=== PATIENT | male | born 1935 | race Caucasian/White ===

== ENCOUNTER 2019-06-06 23:46 | Emergency (ER) | payer MEDICARE ==
[~2019-06-06] VITALS: Ht 175.3 cm; Wt 78.9 kg
--- OUTSIDE RECORDS SUMMARY | 2019-06-06 23:49 | XMS REPORT | Summary of Care ---
Author Author PARESH ANTUNEZ, [facility] Organization Unknown Address Unknown Phone Unavailable Care Team Providers Care Boiler Repairman Name Role Phone NEENA Ricci, HELIO Unavailable Unavailable [facility] ANT[facility], [facility] Unavailable Unavailable JENNIFER D.O., JUJU Unavailable Unavailable YEJohan DO [facility] [place] Unavailable Unavailable YAMEL Ricci, MARRY Unavailable Unavailable Unavailable Unavailable Functional Status Name Dates Details Functional status health issues are not documented Status: Name Dates Details Cognitive status health issues are not documented Status: Problems Name Dates Details Obstructive sleep apnea (327.23, G47.33) Status: Active Exanthem (782.1, R21) Status: Active Need for influenza vaccination (V04.81, Z23) Status: Active 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, N40.1) Status: Active Restless leg syndrome (333.94, G25.81) Status: Active Neuropathy (355.9, G62.9) Status: Active Reactive airway disease (493.90, J45.909) Status: Active Need for vaccination with 13-polyvalent pneumococcal conjugate vaccine (V03.82, Z23) Status: Active Idiopathic peripheral neuropathy (356.9, G60.9) Status: Active Encounter for long-term current use of medication (V58.69, Z79.899) Status: Active Intractable hiccups (786.8, R06.6) Status: Active Peripheral neuropathy (356.9, G62.9) Status: Active 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.2, 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) Status: Active Chronic kidney disease, stage III (moderate) (585.3, N18.3) Status: Active Arteriosclerosis of coronary artery (414.00, I25.10) Status: Active L4-L5 disc bulge (722.10, M51.26) Status: Active Seasonal allergic rhinitis, unspecified chronicity, unspecified trigger Status: Active Patient cannot afford medications (V60.2, Z59.6) Status: Active Thyroid cyst (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 * Start : 24-Sep-2012 Active Glimepiride 1 MG Oral Tablet TAKE 1 TABLET IN THE MORNING, 1 TABLET AT NOON AND TAKE 2 TABLETS WITH SUPPER (T AMELIA WITH FOOD) HOLD STARTING 01-21-18 * Quantity: 360 Refills: 0 HELIO CHAUDHARY M.D. * Start : 24-Sep-2012 Active AmLODIPine Besylate 10 MG Oral Tablet 1 a day * Refills: 0 HELIO CHAUDHARY M.D. * Start : 24-Sep-2012 Active Digoxin 125 MCG Oral Tablet TAKE 1 TABLET DAILY. * Refills: 0 * Start : 24-Sep-2012 Active Amiodarone HCl - 100 MG Oral Tablet TAKE 1 TABLET DAILY DIRECTED. * Refills: 0 * Start : 24-Sep-2012 Active Micro-K 8 MEQ Oral Capsule Extended Release * Refills: 0 HELIO CHAUDHARY M.D. * Start : 24-Sep-2012 Active Atorvastatin Calcium 20 MG Oral Tablet TAKE 1 TABLET DAILY AT BEDTIME. * Refills: 0 HELIO CHAUDHARY M.D. * Start : 24-Sep-2012 Active Vitamin D3 5000 UNIT Oral Capsule 1 a day since * Refills: 0 HELIO CHAUDHARY M.D. * Start : 24-Sep-2012 Active ROPINIRole HCl - 5 MG Oral Tablet TAKE 1 TABLET AT BEDTIME * Quantity: 90 Refills: 1 YEH D.O.JUJU * Start : 23-Aug-2017 Active Furosemide 40 MG Oral Tablet 1.5 TABLET TWICE DAILY ORAL TABLET: Per corporate buyer * Refills: 0 * Start : 14-May-2013 Active Levothyroxine Sodium 88 MCG Oral Tablet TAKE 1 TABLET EVERY DAY * Quantity: 90 Refills: 0 NEENA M.D., HELIO * Start : 21-Jun-2017 Active Accu-Chek Joelle Plus In Vitro Strip Check three to four times daily * Quantity: 4 Refills: 0 HELIO CHAUHDARY M.D. * Start : 11-Feb-2018 Active 100 Strip Box Accu-Chek Softclix Lancets USE TO CHECK BLOOD GLUCOSE TWICE DAILY * Quantity: 2 Refills: 3 HELIO CHAUDHARY M.D. * Start : 13-Feb-2014 Active 100 Miscellaneous Box Losartan Potassium 100 MG Oral Tablet Per corporate buyer * Refills: 0 HELIO CHAUDHARY M.D. * Start : 20-Aug-2014 Active NovoLOG FlexPen 100 UNIT/ML Subcutaneous Solution Pen-injector 2 unit before the two main meals of the day; CF 40 * Refills: 0 HELIO CHAUDHARY M.D. * Start : 29-Mar-2015 Active 5 x 3 ML Pen BD Pen Needle Maria Guadalupe U/F 32G X 4 MM 3 a day as needed for insulin injections * Quantity: 1 Refills: 3 HELIO CHAUDHARY M.D. * Start : 29-Mar-2015 Active 100 Unit Box Januvia 100 MG Oral Tablet TAKE 1 TABLET BY MOUTH EVERY DAY ,MAY DECREASE TO 1/2 TABLET IF NECESSARY * Quantity: 30 Refills: 2 HELIO CHAUDHARY M.D. * Start : 06-Jul-2017 Active Lycopene 10 MG Oral Capsule TAKE 1 CAPSULE TWICE DAILY * Refills: 0 Active Melatonin 10 MG Oral Tablet take 5-10mg qd * Refills: 0 Active Fenofibrate 48 MG Oral Tablet TAKE 1 TABLET BY MOUTH DAILY WITH FOOD REPLACING LOVAZA * Quantity: 90 Refills: 0 HELIO CHAUDHARY M.D. * Start : 24-Dec-2017 Active Fluticasone Propionate 50 MCG/ACT Nasal Suspension USE 2 SPRAYS IN EACH NOSTRIL ONCE DAILY * Quantity: 1 Refills: 1 YEH D.O.JUJU * Start : 30-Jul-2017 Active 16 GM Bottle Promethazine VC Plain 6.25-5 MG/5ML SYRP TAKE 5 ML EVERY 4 TO 6 HOURS NEEDED. * Quantity: 118 Refills: 1 YEH D.O.JUJU * Start : 30-Jul-2017 Active Hydrocodone-Acetaminophen 5-325 MG Oral Tablet * Refills: 0 HELIO CHAUDHARY M.D. * Start : 30-Nov-2017 Active TiZANidine HCl - 2 MG Oral Tablet * Refills: 0 HELIO CHAUDHARY M.D. * Start : 30-Nov-2017 Active Tamsulosin HCl - 0.4 MG Oral Capsule * Refills: 0 HELIO CHAUDHARY M.D. * Start : 30-Nov-2017 Active Zantac 150 Maximum Strength 150 MG Oral Tablet * Refills: 0 HELIO CHAUDHARY M.D. * Start : 30-Nov-2017 Active Diclofenac Sodium 1 % Transdermal Gel APPLY TO LOWER EXTREMITIES, 4 GM OF GEL TO AFFECTED AREA 4 TIMES DAILY. DO NOT APPLY MORE THAN 16 GM DAILY TO ANY ONE AFFECTED JOINT. * Quantity: 1 Refills: 2 * Start : 14-Jan-2018 Active 100 GM Tube Hydrocodone-Acetaminophen 5-325 MG Oral Tablet TAKE 1 TABLET EVERY 4 TO 6 HOURS NEEDED. * Refills: 0 * Start : 14-Jan-2018 Active MethylPREDNISolone 4 MG Oral Tablet Therapy Pack take as directed on package * Quantity: 1 Refills: 0 YEH D.O., JUJU * Start : 14-Jan-2018 Active 21 Tablet Pack Ventolin HFA 108 (90 Base) MCG/ACT Inhalation Aerosol Solution INHALE 1 TO 2 PUFFS BY MOUTH EVERY 4 TO 6 HOURS NEEDED * Quantity: 1 Refills: 2 YEH D.O., JUJU * Start : 14-Jan-2018 Active 18 GM Inhaler Promethazine VC/Codeine 6.25-5-10 MG/5ML Oral Syrup TAKE 5 ML EVERY 4 TO 6 HOURS NEEDED. * Quantity: 240 Refills: 0 YEH D.O., JUJU * Start : 14-Jan-2018 Active Tresiba FlexTouch 100 UNIT/ML Subcutaneous Solution Pen-injector Inject 10 units every day; may self titrate up to 45 units a day * Quantity: 1 Refills: 2 HELIO CHAUDHARY M.D. * Start : 21-Jan-2018 Active 5 x 3 ML Pen EQL Fluticasone Propionate 50 MCG/ACT Nasal Suspension USE 1 SPRAY IN EACH NOSTRIL TWICE DAILY. * Quantity: 1 Refills: 0 YEH D.O., JUJU * Start : 29-Jan-2018 Active 15.8 ML Bottle Allergies and Adverse Reactions Name Dates Details Keflex (Allergy) Status: Active Past Medical History Name Dates Details History of Meningioma (225.2, D32.9) Status: Resolved History of renal calculi (V13.01, Z87.442) Status: Resolved History of transient cerebral ischemia (V12.54, Z86.73) Status: Resolved Procedures Procedure Dates Details History of CABG Completed History of Knee Replacement Completed History of Hemorrhoidectomy Completed History of Implantable Cardioverter-Defibrillator Completed Immunization Name Dates Details Influenza on: 30-Sep-2012 Fluzone INJ Lot #: [id number] on: 20-Aug-2014 Fluzone High-Dose 0.5 ML Intramuscular Suspension Prefilled Syringe Lot #: [id number] on: 17-Sep-2015 Fluzone High-Dose 0.5 ML Intramuscular Suspension Prefilled Syringe Lot #: [id number] on: 12-Sep-2016 Prevnar 13 Intramuscular Suspension Lot #: [id number] on: 12-Sep-2016 Fluzone Quadrivalent 0.5 ML Intramuscular Suspension Prefilled Syringe Lot #: [id number] on: 30-Jul-2017 Family History Name Dates Details Family history of Coronary Artery Disease (V17.49) Comments: Family History Status: Active Name Dates Details Family history of Coronary Artery Disease (V17.49) Status: Active Name Dates Details Family history of Coronary Artery Disease (V17.49) Status: Active Name Dates Details Family history of Coronary Artery Disease (V17.49) Status: Active Family history of diabetes mellitus (V18.0, Z83.3) Status: Active Name Dates Details Family history of Coronary Artery Disease (V17.49) Status: Active Social History Name Dates Details - Status: Name Dates Details Never smoker Vital Signs Date Test Result Details 40-Ahz-510840:00 Weight 178.9 lb Status: Body Mass Index Calculated 26.42 kg/m2 Status: Body Surface Area Calculated 1.97 m2 Status: 30-Yta-836531:38 BP Systolic 138 mm[Hg] Status: Comments: Location: LUE; Position: Sitting BP Diastolic 68 mm[Hg] Status: Comments: Location: LUE; Position: Sitting Weight 183 lb Status: Body Mass Index Calculated 27.02 kg/m2 Status: Body Surface Area Calculated 1.99 m2 Status: Height 69 in Status: Temperature 98.7 f Status: Comments: Method: Temporal Respiration Rate 16 /min Status: Heart Rate 93 /min Status: 0-Vxl-124193:10 BP Systolic 132 mm[Hg] Status: BP Diastolic 70 mm[Hg] Status: :53 BP Systolic 117 mm[Hg] Status: Comments: Location: LUE; Position: Sitting BP Diastolic 62 mm[Hg] Status: Comments: Location: LUE; Position: Sitting Weight 175.5625 lb Status: Body Mass Index Calculated 25.93 kg/m2 Status: Body Surface Area Calculated 1.95 m2 Status: Height 69 in Status: Heart Rate 86 /min Status: 03-Sho-258897:38 BP Systolic 143 mm[Hg] Status: Comments: Location: LUE; Position: Sitting BP Diastolic 74 mm[Hg] Status: Comments: Location: LUE; Position: Sitting Weight 183 lb Status: Body Mass Index Calculated 27.02 kg/m2 Status: Body Surface Area Calculated 1.99 m2 Status: Height 69 in Status: Temperature 97.9 f Status: Comments: Method: Temporal Respiration Rate 16 /min Status: Heart Rate 95 /min Status: Results Date Description Value Details :54 [O] Hemoglobin A1c (in office) HEMOGLOBIN A1c 7.1 :54 Glucose (Point of Care In Office) Glucose POC [facility] 233 Plan of Care Name Dates Details Planned Observations Planned Goals not documented Planned Encounters Appointment; HELIO CHAUDHARY M.D. On: 27-Mar-2018 14:15 Instructions Name Dates Details Instructions not documented Encounters Appointment; HELIO CHAUDHARY M.D. Encounter Diagnosis: Problem not documented On: 17-May-2016 8:00 Appointment; HELIO CHAUDHARY M.D. Encounter Diagnosis: Problem not documented On: 12-Sep-2016 8:30 Appointment; YUAN CHOPRA M.D. Encounter Diagnosis: Problem not documented On: 12-Sep-2016 11:00 Appointment; HELIO CHAUDHARY M.D. Encounter Diagnosis: Problem not documented On: 27-Dec-2016 8:30 Appointment; JUJU RODRIGUEZ D.O. Encounter Diagnosis: Problem not documented On: 26-Mar-2017 15:00 Appointment; HELIO CHAUDHARY M.D. Encounter Diagnosis: Problem not documented On: 10-Apr-2017 8:30 Appointment; JUJU RODRIGUEZ D.O. Encounter Diagnosis: Problem not documented On: 29-May-2017 14:30 Appointment; JUJU RODRIGUEZ D.O. Encounter Diagnosis: Problem not documented On: 07-Jun-2017 9:30 Appointment; JUJU RODRIGUEZ D.O. Encounter Diagnosis: Problem not documented On: 30-Jul-2017 12:45 Appointment; HELIO CHAUDHARY M.D. Encounter Diagnosis: Problem not documented On: 07-Aug-2017 8:30 Appointment; HELIO CHAUDHARY M.D. Encounter Diagnosis: Problem not documented On: 30-Nov-2017 9:00 Appointment; GEM YODER RD Encounter Diagnosis: Problem not documented On: 02-Jan-2018 10:00 Appointment; JUJU RODRIGUEZ D.O. Encounter Diagnosis: Problem not documented On: 14-Jan-2018 15:45 Appointment; HELIO CHAUDHARY M.D. Encounter Diagnosis: Problem not documented On: 21-Jan-2018 14:45 Appointment; JUJU RODRIGUEZ D.O. Encounter Diagnosis: Problem not documented On: 29-Jan-2018 12:30 Appointment; GEM YODER RD Encounter Diagnosis: Problem not documented On: 13-Feb-2018 10:00
--- OUTSIDE RECORDS SUMMARY | 2019-06-06 23:49 | XMS REPORT ---
Author Author [facility] Address Unknown Phone Unavailable Care Team Providers Care Migration Agent Name Role Phone Unavailable Unavailable Problems This patient has no known problems. Allergies, Adverse Reactions, Alerts This patient has no known allergies or adverse reactions. Medications This patient has no known medications. Encounters Start Date/Time End Date/Time Encounter Type Admission Type Attending [facility] Care Facility Care Department Encounter ID 2019-05-29 09:08:00 2019-05-29 09:08:00 Outpatient [id number] 2019-04-24 08:39:00 2019-04-24 08:39:00 Outpatient [id number]
--- NOTE | 2019-06-07 01:34 | Diagnostic Imaging Report ---
EXAMINATION: CT of the neck without contrast HISTORY: Evaluate for lodge food in esophagus, patient feels like something is stuck on the right side of neck, near the sternal notch level. COMPARISON: None TECHNIQUE: Multidetector helical axial images were obtained from the sternal notch through the skull base without IV contrast. Images were reconstructed using soft tissue and bone algorithms and were viewed in multiplanar format. Dose modulation, iterative reconstruction, and/or weight based adjustment of the mA/kV was utilized to reduce the radiation dose to as low as reasonably achievable. Image quality: The lack of IV contrast limits the evaluation of neck mass, lymphadenopathy and vascular structures. FINDINGS: Mass: No discrete mass. Nodes: No discrete enlarged cervical lymphadenopathy in this unenhanced study. Sinuses: Imaged portions unremarkable. Oral cavity: Unremarkable. Salivary glands: Parotid and submandibular glands unremarkable. Pharynx: Normal, no discrete mass or dense foreign bodies. Larynx: Normal, no discrete mass identified. Thyroid gland: Unremarkable. Upper esophagus: No discrete mass or dense foreign bodies . Blood vessels: Cannot be evaluated due to the lack of IV contrast Bones: -Cervical spine: C3-C4: Asymmetric right disc osteophyte complex formation, bilateral uncovertebral and facet arthrosis. Moderately severe spinal and right foraminal stenosis. Moderate left foraminal stenosis. C4-C5: Small disc osteophyte complex formation, bilateral uncovertebral osteoarthrosis. Mild canal and left foraminal stenosis. Minimal degenerative anterolisthesis. C5-C6: Disc osteophyte complex formation, bilateral uncovertebral and facet arthrosis. Moderate to severe spinal canal and bilateral foraminal stenosis. C6-C7: Disc osteophyte complex formation, bilateral uncovertebral and facet arthrosis. Severe right and moderate left foraminal stenosis. Mild canal stenosis. C7-T1: Uncovertebral and facet arthrosis. Moderately severe bilateral foraminal stenosis worse on the right. -Sternotomy wires are partially visualized. Incidental findings: Partially visualized pacemaker leads. IMPRESSION: No discrete mass or dense foreign bodies in the upper aerodigestive tract. Signed by: Dr. Ana Rivera M.D. on 06/07/2019 1:31 AM
[2019-06-07 01:55] VITALS: BP 153/83
== END 2019-06-07 02:01 | disposition home or self-care (01) ==
LOC: ER 23:46
DX: R09.89 Other specified symptoms and signs involving the circulatory and respiratory systems (principal); I10 Essential (primary) hypertension; E11.9 Type 2 diabetes mellitus without complications; K21.9 Gastro-esophageal reflux disease without esophagitis; E78.5 Hyperlipidemia, unspecified; I25.2 Old myocardial infarction; Z95.5 Presence of coronary angioplasty implant and graft; Z95.810 Presence of automatic (implantable) cardiac defibrillator; M54.9 Dorsalgia, unspecified; G89.29 Other chronic pain
CPT/HCPCS: 70490; 99283

== ENCOUNTER 2020-03-24 02:44 | Emergency (ER) | payer MEDICARE ==
[~2020-03-24] VITALS: Ht 175.3 cm; Wt 78.9 kg
[~2020-03-24 02:44] MED LIST: ACETAMINOPHEN325 M1 PO; AMIODARONE HCL200 MG; Albuterol/Ipratropium Nebulize NEB; CARVEDILOL6.25 MG; COLACE100 MG/10 NG; COREG3.125 MG PO; Calcium Carbonate PO; DEXTROSE 50%-WA50 M1 IV; ELIQUIS5 MG PO; FAMOTIDINE20 MG/2 ML IV; FLOMAX0.4 MG PO; FUROSEMIDE10 MG/1 M1 IV; Fluticasone Propionate NS; HYDROCODON-ACE1 EAC9; Insulin Lispro SQ; LIPITOR10 MG PO; LIPITOR20 MG; LORATADINE10 MG PO; LYCOPENE10 MG; Metoprolol Tartrate Inj IV; Morphine Sulfate 2MG/Ml IV; NOVOLOG100 UNITS1; NYSTATIN100000 UNI PO; ONDANSETRON4 MG/2 M1 IV; POTASSIUM CHLORIDE 20 MEQ/15 ML NG; STENDRA; TAMSULOSIN; TESSALON PERLE100 MG PO; TESTOSTERO200 MG/11; TIZANIDINE HCL4 MG; TRAZODONE HCL50 MG; TRIAMCINOLONE A15 G1 TOP; XOPENEX0.63 MG/3 INH
[2020-03-24] MEDS ORDERED: LIDOCAINE JELLY 2% 10ML URO-JET ONE (02:58)
[2020-03-24] MEDS ORDERED: LIDOCAINE JELLY 2% 10ML URO-JET TOP ONE (03:00)
--- NOTE | 2020-03-24 03:00 | NUR ---
PT PRESENTS WITH NONE DRAINING INDWELLING 16F SARAH CATH, NOT ATTACHED TO A DRAIN BAG. OLD CATH REMOVED AND NEW 16F URETHRAL CATH PLACED WITHOUT DIFFICULTY. 1000CC MALODOURUS YELLOW URINE, WITH PURULENT STRAINDS, SEDIMENT AND SMALL BLOOD CLOTS WAS DRAINED RIGHT AFTER SARAH WAS PLACED. DR ALICEA AT BEDSIDE TO REASSESS. SARAH IRRIGATED WITH 60CC NS TO MAKE SURE IT WAS FLOWING FREELY. PT STATES FEELING MUCH BETTER.
--- NOTE | 2020-03-24 03:07 | NUR ---
[facility] CALLED AT THIS TIME. ETA 30-45 MINUTES.
== END 2020-03-24 04:16 | disposition home or self-care (01) ==
LOC: ER 02:44
DX: Z46.6 Encounter for fitting and adjustment of urinary device (principal); R33.9 Retention of urine, unspecified
CPT/HCPCS: 51700; 99284

== ENCOUNTER 2020-04-28 03:11 | Emergency (ER) | payer MEDICARE ==
[~2020-04-28] VITALS: Ht 175.3 cm; Wt 78.9 kg
--- OUTSIDE RECORDS SUMMARY | 2020-04-28 03:15 | XMS REPORT ---
Author Author JANETT CHAUDHARY Organization Unknown Address Unknown Phone Care Team Providers Care Fountain Operator Name Role Phone HELIO CHAUDHARY PP Unavailable Reason for Referral No Reason for Referral was given. History of Present Illness No HPI available. Problems * Normal Routine History And Physical Senior Citizen (65-80) (V70.0); ( Active) * Exanthem (782.1); (Active) * Obstructive Sleep Apnea (327.23); (Active) * Chronic Kidney Disease, Stage 3 (585.3); (Active) * Coronary Artery Disease (414.00); (Active) * Diabetes Mellitus With Peripheral Circulatory Disorder (250.70); ( Active) * Hypertension (401.9); (Active) * Mixed Hyperlipoproteinemia (272.2); (Active) * Hypothyroidism (244.9); (Active) * Vitamin D Deficiency (268.9); (Active) Medication * Accu-Chek SmartView In Vitro Strip; Check BG 2x a day; Start Date: 09/24/2012 (Active) * Aspirin 81 MG Oral Tablet; 1 a day; Start Date: 09/24/2012 (Active) * AmLODIPine Besylate 10 MG Oral Tablet; 1 a day; Start Date: 09/24/2012 (Active) * Avapro 300 MG Oral Tablet; Per geothermal operating engineer; Start Date: 09/24/2012 (Active) * Glimepiride 2 MG Oral Tablet; take 1/2 tab 3x a day; Start Date: 09/24/2012 (Active) * Digoxin 0.125 MG Oral Tablet; Start Date: 09/24/2012 (Active) * Amiodarone HCl 200 MG Oral Tablet; Start Date: 09/24/2012 (Active) * Micro-K 8 MEQ Oral Capsule Extended Release; Start Date: 09/24/2012 (Active) * Atorvastatin Calcium 20 MG Oral Tablet; TAKE 1 TABLET DAILY AT BEDTIME.; Start Date: 09/24/2012 (Active) * Vitamin D 2000 UNIT Oral Capsule; 1 a day; Start Date: 09/24/2012 (Active) * Niacin ER (Antihyperlipidemic) 750 MG Oral Tablet Extended Release; TAKE 1 TABLET AT NIGHT WITH LIGHT SNACK.; Start Date: 09/24/2012 (Active) * Levothyroxine Sodium 50 MCG Oral Tablet; 1 tab daily Sun to ; 2 tabs daily from Sun to Sun; starting Oct; Start Date: 09/24/2012 (Active) * NovoLOG FlexPen 100 UNIT/ML Subcutaneous Solution; CF~50; Start Date: 09/30/2012 (Active) * ROPINIRole HCl 5 MG Oral Tablet; Start Date: 03/04/2013 (Active) * Furosemide 40 MG Oral Tablet; Per geothermal operating engineer; Start Date: 05/14/2013 (Active) * Tamsulosin HCl 0.4 MG Oral Capsule; Start Date: 05/14/2013 (Active) * BD Pen Needle Maria Guadalupe U/F 32G X 4 MM Miscellaneous; 3 a day; Start Date: 10/08/2012 (Active) * Accu-Chek FastClix Lancets Miscellaneous; Check BG 2x a day; Start Date: 08/18/2013 (Active) * Accu-Chek Maria Guadalupe SmartView w/Device Kit; USE DIRECTED BG CHECK; Start Date: 12/04/2013 (Active) Allergies and Adverse Reactions * No Known Drug Allergies (Active) Past Medical History * History of Nephrolithiasis (V13.01); (Resolved) * No History of Pancreatitis (Denied) * No History of Stroke Syndrome (Denied) Procedures Procedure Procedure Date Date Completed Status CABG (CABG) - - Resolved Knee Replacement - - Resolved Hemorrhoidectomy - - Resolved Immunization * Influenza Family History * Family history of Coronary Artery Disease (V17.49); (Active) * No Family history of Thyroid Cancer (Denied) Social History * Marital History - (Active) * Never A Smoker (Active) * Never Drank Alcohol (Active) Advance Directives * No Advance Directives available. Encounters * AUDIT 02/03/2014 * E30, Provider: HELIO CHAUDHARY, Status: Abhay, Time: 8:00 AM 2014
--- OUTSIDE RECORDS SUMMARY | 2020-04-28 03:15 | XMS REPORT ---
Author Author JANETT CHAUDHARY Organization Unknown Address Unknown Phone Care Team Providers Care Advertising Material Distributor Name Role Phone HELIO CHAUDHARY PP Unavailable Reason for Referral No Reason for Referral was given. History of Present Illness No HPI available. Problems * Normal Routine History And Physical Senior Citizen (65-80) (V70.0); ( Active) * Exanthem (782.1); (Active) * Obstructive Sleep Apnea (327.23); (Active) * Chronic Kidney Disease, Stage 3 (585.3); (Active) * Diabetes Mellitus With Peripheral Circulatory Disorder (250.70); ( Active) * Hypertension (401.9); (Active) * Mixed Hyperlipoproteinemia (272.2); (Active) * Coronary Artery Disease (414.00); (Active) * Hypothyroidism (244.9); (Active) Medication * FreeStyle Lite Test In Vitro Strip; Check BG 2x a day; Start Date: 09/24/2012 (Active) * Aspirin 81 MG Oral Tablet; 1 a day; Start Date: 09/24/2012 (Active) * Glimepiride 2 MG Oral Tablet; take 1/2 tab 3x a day; Start Date: 09/24/2012 (Active) * AmLODIPine Besylate 10 MG Oral Tablet; 1 a day; Start Date: 09/24/2012 (Active) * Avapro 300 MG Oral Tablet; Per bonding machine operator; Start Date: 09/24/2012 (Active) * Digoxin 0.125 [...] a day; Start Date: 09/24/2012 (Active) * Niaspan 750 MG Oral Tablet Extended Release; TAKE 1 TABLET AT NIGHT WITH LIGHT SNACK.; Start Date: 09/24/2012 (Active) * Levothyroxine Sodium 50 MCG Oral Tablet; 1 tab daily Mon to Th; 2 tabs daily on F, Sat, Sun;; Start Date: 09/24/2012 (Active) * NovoLOG FlexPen 100 UNIT/ML Subcutaneous Solution; CF~50; Start Date: 09/30/2012 (Active) * ROPINIRole HCl 5 MG Oral Tablet; Start Date: 03/04/2013 (Active) * Furosemide 40 MG Oral Tablet; Per bonding machine operator; Start Date: 05/14/2013 (Active) * Tamsulosin HCl 0.4 MG Oral Capsule; Start Date: 05/14/2013 (Active) * BD Pen Needle Maria Guadalupe U/F 32G X 4 MM Miscellaneous; 3 a day; Start Date: 10/08/2012 (Active) Allergies and Adverse Reactions * No [...] No Advance Directives available. Encounters * AUDIT 08/15/2013
--- OUTSIDE RECORDS SUMMARY | 2020-04-28 03:15 | XMS REPORT ---
Author Author JANETT Graham Organization Unknown Address Unknown Phone Care Team Providers Care Assistant Manager Bilingual Name Role Phone Jared Graham PP Unavailable Reason for Referral No Reason [...] * Avapro 300 MG Oral Tablet; Per building construction supervisor; Start Date: 09/24/2012 (Active) * Glimepiride 1 MG Oral Tablet; TAKE 1 TABLET 3 times a day with food.; Start Date: 09/24/2012 (Active) * Digoxin 0.125 MG Oral Tablet; Start Date: 09/24/2012 (Active) * Micro-K 8 MEQ Oral Capsule Extended Release; Start Date: 09/24/2012 (Active) * Atorvastatin Calcium 20 MG Oral Tablet; TAKE 1 TABLET DAILY AT BEDTIME.; Start Date: 09/24/2012 (Active) * Vitamin D 2000 UNIT Oral Capsule; 1 a day; Start Date: 09/24/2012 (Active) * NovoLOG FlexPen 100 UNIT/ML Subcutaneous Solution; CF~50; Start Date: 09/30/2012 (Active) * Niacin ER (Antihyperlipidemic) 750 MG Oral Tablet Extended Release; TAKE 1 TABLET AT NIGHT WITH LIGHT SNACK.; Start Date: 09/24/2012 (Active) * Amiodarone HCl 100 MG Oral Tablet; Start Date: 09/24/2012 (Active) * ROPINIRole HCl 5 MG Oral Tablet; Start Date: 03/04/2013 (Active) * BD Pen Needle Maria Guadalupe U/F 32G X 4 MM Miscellaneous; 3 a day; Start Date: 10/08/2012 (Active) * Furosemide 40 MG Oral Tablet; Per building construction supervisor; Start Date: 05/14/2013 (Active) * Tamsulosin HCl 0.4 MG Oral Capsule; Start Date: 05/14/2013 (Active) * Levothyroxine Sodium 50 MCG Oral Tablet; 1 tab daily Sun to ; 2 tabs daily from Sun to Sun; starting Oct; Start Date: 09/24/2012 (Active) * Accu-Chek FastClix Lancets Miscellaneous; Check BG 2x a day; Start Date: 08/18/2013 (Active) * Levothyroxine Sodium 88 MCG Oral Tablet; TAKE 1 TABLET DAILY.; Start Date: 02/05/2014 (Active) * Accu-Chek Maria Guadalupe SmartView w/Device [...] No Family history of Thyroid Cancer (Denied) * No Family history of Pancreatitis (Denied) Social History * Marital History - (Active) * Never A Smoker (Active) * Never Drank Alcohol (Active) Treatment Plan * [QL] VITAMIN D, 25-HYDROXY, LC/MS/MS 02/04/2014 Routine Advance Directives * No Advance Directives available. Encounters * AUDIT 2014 * E30, Provider: HELIO CHAUDHARY, Status: Pen, Time: 9:00 AM 05/18/2014
--- OUTSIDE RECORDS SUMMARY | 2020-04-28 03:15 | XMS REPORT ---
Author Author JANETT CHAUDHARY Organization Unknown Address Unknown Phone Care Team Providers Care Public Defender Name Role Phone HELIO CHAUDHARY PP Unavailable [...] Disease (414.00); (Active) * Hypothyroidism (244.9); (Active) * Vitamin D Deficiency (268.9); (Active) Medication * FreeStyle Lite Test In Vitro Strip; Check BG 2x a day; Start Date: 09/24/2012 (Active) * Aspirin 81 MG Oral Tablet; 1 a day; Start Date: 09/24/2012 (Active) * AmLODIPine Besylate 10 MG Oral Tablet; 1 a day; Start Date: 09/24/2012 (Active) * Avapro 300 MG Oral Tablet; Per director targeted marketing; Start Date: 09/24/2012 (Active) * Glimepiride 2 [...] * Furosemide 40 MG Oral Tablet; Per director targeted marketing; Start Date: 05/14/2013 (Active) * Tamsulosin HCl 0.4 MG Oral Capsule; Start Date: 05/14/2013 (Active) * BD Pen Needle Maria Guadalupe U/F 32G X 4 MM Miscellaneous; 3 a day; Start Date: 10/08/2012 (Active) * FreeStyle Lancets Miscellaneous; Check BG 2x a day; Start Date: 08/18/2013 (Active) Allergies and Adverse Reactions * No [...] No Advance Directives available. Encounters * AUDIT 10/30/2013 * E30, Provider: HELIO CHAUDHARY, Status: Abhay, Time: 9:45 AM 11/10/2013 * E30, Provider: HELIO CHAUDHARY, Status: Abhay, Time: 8:00 AM 2014
--- OUTSIDE RECORDS SUMMARY | 2020-04-28 03:15 | XMS REPORT ---
Author Author JANETT CHAUDHARY Organization Unknown Address Unknown Phone Care Team Providers Care Lunchroom Attendant Name Role Phone HELIO CHAUDHARY PP Unavailable Reason for Referral No Reason for Referral was given. History of Present Illness No HPI available. 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); ( Active) * Hypertension (401.9); (Active) * Hypothyroidism (244.9); (Active) * Vitamin D Deficiency (268.9); (Active) * Chronic Kidney Disease, Stage 3 (585.3); (Active) Medication * FreeStyle Lite Test In Vitro Strip; Check BG 2x a day; Start Date: 09/24/2012 (Active) * Aspirin 81 MG Oral Tablet; 1 a day; Start Date: 09/24/2012 (Active) * AmLODIPine Besylate 10 MG Oral Tablet; 1 a day; Start Date: 09/24/2012 (Active) * Avapro 300 MG Oral Tablet; Per semiconductor packages sealer; Start Date: 09/24/2012 (Active) * Glimepiride 2 [...] Oral Tablet; 1 tab daily Mon to ; 2 tabs daily on F, Sat, Sun;; Start Date: 09/24/2012 (Active) * NovoLOG FlexPen 100 UNIT/ML Subcutaneous Solution; CF~50; Start Date: 09/30/2012 (Active) * ROPINIRole HCl 5 MG Oral Tablet; Start Date: 03/04/2013 (Active) * Furosemide 40 MG Oral Tablet; Per semiconductor packages sealer; Start Date: 05/14/2013 (Active) * Tamsulosin HCl [...] No Advance Directives available. Encounters * AUDIT 08/20/2013 * E30, Provider: HELIO CHAUDHARY, Status: Pen, Time: 9:45 AM 11/10/2013
--- OUTSIDE RECORDS SUMMARY | 2020-04-28 03:15 | XMS REPORT ---
Author Author JANETT CHAUDHARY Organization Unknown Address Unknown Phone Care Team Providers Care Director Social Welfare Name Role Phone HELIO CHAUDHARY PP Unavailable [...] * Avapro 300 MG Oral Tablet; Per data security coordinator; Start Date: 09/24/2012 (Active) * Digoxin 0.125 [...] * Furosemide 40 MG Oral Tablet; Per data security coordinator; Start Date: 05/14/2013 (Active) * Tamsulosin HCl [...] - - Resolved Hemorrhoidectomy - - Resolved Family History * Family history of Coronary Artery Disease (V17.49); (Active) * No Family history of Thyroid Cancer (Denied) Social History * Marital History - (Active) * Never A Smoker (Active) * Never Drank Alcohol (Active) Advance Directives * No Advance Directives available. Encounters * AUDIT 05/14/2013 * RACHID, Provider: ONEAL SCHROEDER, Status: Abhay, Time: 11:00 AM 05/15/2013
--- OUTSIDE RECORDS SUMMARY | 2020-04-28 03:15 | XMS REPORT ---
Author Author JANETT CHAUDHARY Organization Unknown Address Unknown Phone Care Team Providers Care Dry Color Mixer Name Role Phone HELIO CHAUDHARY PP Unavailable [...] * Avapro 300 MG Oral Tablet; Per quality lab technician; Start Date: 09/24/2012 (Active) * Digoxin 0.125 [...] * Furosemide 40 MG Oral Tablet; Per quality lab technician; Start Date: 05/14/2013 (Active) * Tamsulosin HCl [...] No Advance Directives available. Encounters * AUDIT 08/18/2013
--- OUTSIDE RECORDS SUMMARY | 2020-04-28 03:15 | XMS REPORT ---
Author Author JANETT CHAUDHARY Organization Unknown Address Unknown Phone Care Team Providers Care Beautician Apprentice Name Role Phone NEENAHELIO Melvin PP Unavailable Reason for Referral No Reason [...] * Avapro 300 MG Oral Tablet; Per fixed income director; Start Date: 09/24/2012 (Active) * Glimepiride 1 [...] starting Oct; Start Date: 09/24/2012 (Active) * Amiodarone HCl 100 MG Oral Tablet; Start Date: 09/24/2012 (Active) * NovoLOG FlexPen 100 UNIT/ML Subcutaneous Solution; CF~50; Start Date: 09/30/2012 (Active) * ROPINIRole HCl 5 MG Oral Tablet; Start Date: 03/04/2013 (Active) * Furosemide 40 MG Oral Tablet; Per fixed income director; Start Date: 05/14/2013 (Active) * Tamsulosin HCl [...] DAILY.; Start Date: 02/05/2014 (Active) * Accu-Chek Joelle Plus In Vitro Strip; CHECK 2 TIMES DAILY; Start Date: 02/13/2014 (Active) * Accu-Chek Softclix Lancets Miscellaneous; Check BG 2x a day; Start Date: 02/13/2014 (Active) * Accu-Chek Maria Guadalupe SmartView w/Device [...] No Advance Directives available. Encounters * AUDIT 02/13/2014 * E30, Provider: HELIO CHAUDHARY, Status: Abhay, Time: 9:00 AM 05/18/2014
--- OUTSIDE RECORDS SUMMARY | 2020-04-28 03:15 | XMS REPORT ---
Author Author JANETT CHAUDHARY Organization Unknown Address Unknown Phone Care Team Providers Care Cork Slabs Sawyer Name Role Phone HELIO CHAUDHARY PP Unavailable [...] (401.9); (Active) * Hypothyroidism (244.9); (Active) * Chronic Kidney Disease, Stage 3 (585.3); (Active) * Vitamin D Deficiency (268.9); (Active) Medication * FreeStyle Lite Test In Vitro Strip; Check BG 2x a day; Start Date: 09/24/2012 (Active) * Aspirin 81 MG Oral Tablet; 1 a day; Start Date: 09/24/2012 (Active) * AmLODIPine Besylate 10 MG Oral Tablet; 1 a day; Start Date: 09/24/2012 (Active) * Avapro 300 MG Oral Tablet; Per client resolution specialist; Start Date: 09/24/2012 (Active) * Glimepiride 2 [...] * Furosemide 40 MG Oral Tablet; Per client resolution specialist; Start Date: 05/14/2013 (Active) * Tamsulosin HCl [...] Plan * [QL] VITAMIN D, 25-HYDROXY, LC/MS/MS 08/18/2013 Routine Advance Directives * No Advance Directives available. Encounters * AUDIT 08/19/2013 * E30, Provider: HELIO CHAUDHARY, Status: Pen, Time: 9:45 AM 11/10/2013
--- OUTSIDE RECORDS SUMMARY | 2020-04-28 03:15 | XMS REPORT ---
Author Author JANETT Shaw Organization Unknown Address Unknown Phone Care Team Providers Care Washer Blanket Name Role Phone Mary Carmen Shaw PP Unavailable Reason for Referral No Reason [...] Vitamin D Deficiency (268.9); (Active) Medication * OneTouch Ultra Blue In Vitro Strip; Check BG 2x a day; Start Date: 09/24/2012 (Active) * Aspirin 81 MG Oral Tablet; 1 a day; Start Date: 09/24/2012 (Active) * AmLODIPine Besylate 10 MG Oral Tablet; 1 a day; Start Date: 09/24/2012 (Active) * Avapro 300 MG Oral Tablet; Per home maker; Start Date: 09/24/2012 (Active) * Glimepiride 2 [...] * Furosemide 40 MG Oral Tablet; Per home maker; Start Date: 05/14/2013 (Active) * Tamsulosin HCl 0.4 MG Oral Capsule; Start Date: 05/14/2013 (Active) * BD Pen Needle Maria Guadalupe U/F 32G X 4 MM Miscellaneous; 3 a day; Start Date: 10/08/2012 (Active) * OneTouch Delica Lancets Fine Miscellaneous; Check BG 2x a day; Start Date: 08/18/2013 (Active) * resmioTouch Ultra Mini w/Device Kit; USE DIRECTED BG CHECK; Start [...] No Advance Directives available. Encounters * AUDIT 12/04/2013 * E30, Provider: HELIO CHAUDHARY, Status: Abhay, Time: 8:00 AM 2014
--- OUTSIDE RECORDS SUMMARY | 2020-04-28 03:15 | XMS REPORT ---
Author Author JANETT CHAUDHARY Organization Unknown Address Unknown Phone Care Team Providers Care Successfactors Consultant Name Role Phone NEENAHELIO Melvin PP Unavailable [...] * Avapro 300 MG Oral Tablet; Per family assistant; Start Date: 09/24/2012 (Active) * Glimepiride 1 [...] * Furosemide 40 MG Oral Tablet; Per family assistant; Start Date: 05/14/2013 (Active) * Tamsulosin HCl 0.4 MG Oral Capsule; Start Date: 05/14/2013 (Active) * BD Pen Needle Maria Guadalupe U/F 32G X 4 MM Miscellaneous; 3 a day; Start Date: 10/08/2012 (Active) * Accu-Chek FastClix Lancets Miscellaneous; Check BG 2x a day; Start Date: 08/18/2013 (Active) * Accu-Chek Maria Guadalupe SmartView w/Device Kit; USE DIRECTED BG CHECK; Start Date: 12/04/2013 (Active) * Levothyroxine Sodium 88 MCG Oral Tablet; TAKE 1 TABLET DAILY.; Start Date: 02/05/2014 (Active) Allergies and Adverse Reactions * No [...] No Advance Directives available. Encounters * AUDIT 02/05/2014 * E30, Provider: HELIO CHAUDHARY, Status: Abhay, Time: 8:00 AM 2014 * E30, Provider: HELIO CHAUDHARY, Status: Abhay, Time: 9:00 AM 05/18/2014
--- OUTSIDE RECORDS SUMMARY | 2020-04-28 03:15 | XMS REPORT | Continuity of Care Document ---
Author Author Maico SurePeakJANETT [employer] Address Unknown Phone Unavailable Care Team Providers Care Wool Shearing Supervisor Name Role Phone [employer] Unavailable Un available Problems Problem Status Onset Date Classification Date Reported Comments Source Exanthem Active 02/13/2014 [facility] Obstructive Sleep Apnea Active 02/13/2014 [facility] Chronic Kidney Disease, Stage 3 Active 02/13/2014 [facility] Diabetes Mellitus With Peripheral Circulatory Disorder Active 02/13/2014 [facility] Hypertension Active 02/13/2014 [facility] Mixed Hyperlipoproteinemia Act grecia 02/13/2014 [facility] Coronary Artery Disease Active 02/13/2014 [facility] Hypothyroidism Active 02/13/2014 [facility] Vitamin D Deficiency Active 02/13/2014 [facility] Medications Medication Details Route Status Patient Instructions Ordering Provider Order Date Source Accu-Chek Joelle Plus In Vitro Strip ; Start Date: 02/13/2014 (Active) Active 02/13/2014 [facility] Accu-Chek Softclix Lancets Miscellaneous ; Start Date: 02/13/2014 (Active) Active 02/13/2014 [facility] Levothyroxine Sodium 88 MCG Oral Tablet ; Start Date: 02/05/2014 (Active) Active 02/05/2014 [facility] OneTouch Ultra Mini w/Device Kit ; Start Date: 12/04/2013 (Active) Active 12/04/2013 [facility] Accu-Chek Maria Guadalupe SmartView w/Device Kit ; Start Date: 12/04/2013 (Active) Active 12/04/2013 [facility] FreeStyle Lancets Miscellaneous ; Start Date: 08/18/2013 (Active) Active 08/18/2013 [facility] JameyTomargareth Delica Lancets Fine Miscellaneous ; Start Date: 08/18/2013 (Active) Active 08/18/2013 [facility] Accu-Chek FastClix Lancets Miscellaneous ; Start Date: 08/18/2013 (Active) Active 08/18/2013 [facility] Furosemide 40 MG Oral Tablet ; Start Date: 05/14/2013 (Active) Active 05/14/2013 [facility] Tamsulosin HCl 0.4 MG Oral Capsule ; Start Date: 05/14/2013 (Active) Active 05/14/2013 [facility] ROPINIRole HCl 5 MG Oral Tablet ; Start Date: 03/04/2013 (Active) Active 03/04/2013 [facility] BD Pen Needle Maria Guadalupe U/F 32G X 4 MM Miscellaneous ; Start Date: 10/08/2012 (Active) Active 10/08/2012 [facility] NovoLOG FlexPen 100 UNIT/ML Subcutaneous Solution ; Start Date: 09/30/2012 (Active) Active 09/30/2012 [facility] FreeStyle Lite Test In Vitro Strip ; Start Date: 09/24/2012 (Active) Active 09/24/2012 [facility] Aspirin 81 MG Oral Tablet ; St art Date: 09/24/2012 (Active) Active 09/24/2012 [facility] Glimepiride 2 MG Oral Tablet ; Start Date: 09/24/2012 (Active) Active 09/24/2012 [facility] AmLODIPine Besylate 10 MG Oral Tablet ; Start Date: 09/24/2012 (Active) Active 09/24/2012 [facility] Avapro 300 MG Oral Tablet ; St art Date: 09/24/2012 (Active) Active 09/24/2012 [facility] Digoxin 0.125 MG Oral Tablet ; Start Date: 09/24/2012 (Active) Active 09/24/2012 [facility] Amiodarone HCl 200 MG Oral Tablet ; Start Date: 09/24/2012 (Active) Active 09/24/2012 [facility] Micro-K 8 MEQ Oral Capsule Extended Release ; Start Date: 09/24/2012 (Active) Active 09/24/2012 [facility] Atorvastatin Calcium 20 MG Oral Tablet ; Start Date: 09/24/2012 (Active) Active 09/24/2012 [facility] Vitamin D 2000 UNIT Oral Capsule ; Start Date: 09/24/2012 (Active) Active 09/24/2012 [facility] Niaspan 750 MG Oral Tablet Extended Release ; Start Date: 09/24/2012 (Active) Active 09/24/2012 [facility] Levothyroxine Sodium 50 MCG Oral Tablet ; Start Date: 09/24/2012 (Active) Active 09/24/2012 [facility] OneTouch Ultra Blue In Vitro Strip ; Start Date: 09/24/2012 (Active) Active 09/24/2012 [facility] Niacin ER (Antihyperlipidemic) 750 MG Or al Tablet Extended Release ; Start Date: 09/24/2012 (Active) Active 09/24/2012 [facility] Accu-Chek SmartView In Vitro Strip ; Start Date: 09/24/2012 (Active) Active 09/24/2012 [facility] Glimepiride 1 MG Oral Tablet ; Start Date: 09/24/2012 (Active) Active 09/24/2012 [facility] Amiodarone HCl 100 MG Oral Tablet ; Start Date: 09/24/2012 (Active) Active 09/24/2012 [facility] Micro-K 8 MEQ Oral Capsule Extended Release ; Start Date: 09/24/2012 (Active) Active 09/24/2012 [facility] Allergies, Adverse Reactions, Alerts Substance Category Reaction Severity Reaction type Status Date Reported Comments Source No Known Drug Allergies drug a llergy drug aller gy Active [facility] Immunizations Immunization Date Given Site Status Last Updated Comments Source Influenza completed [facility] Results No Data Provided for This Section Pathology Reports No Data Provided for This Section Diagnostic Reports No Data Provided for This Section Consultation Notes No Data Provided for This Section Discharge Summaries No Data Provided for This Section History and Physicals No Data Provided for This Section Vital Signs No Data Provided for This Section Encounters Location Location Details Encounter Type Encounter Number Reason For Visit Attending Provider ADM Date DC Date Status Source AUDIT [id number] 05/14/2013 05/14/2013 [facility] [place] RASHID jacky: ONEAL SCHROEDER, Status: Pen, Time: 11:00 AM [id number] 05/15/20 13 05/14/2013 [facility] AUDIT [id number] 08/15/2013 08/15/2013 [facility] AUDIT [id number] 08/18/2013 08/18/2013 [facility] AUDIT [id number] 08/19/2013 08/19/2013 [facility] AUDIT [id number] 08/20/2013 08/20/2013 [facility] AUDIT [id number] 10/30/2013 10/30/2013 [facility] [place] Ber[place] jacky: HELIO CHAUDHARY, Status: Pen, Time: 9:45 AM [id number] 11/10/20 13 10/30/2013 [facility] AUDIT [id number] 12/04/2013 12/04/2013 [facility] AUDIT [id number] 02/03/2014 02/03/2014 [facility] AUDIT [id number] 02/05/2014 02/05/2014 [facility] E30, Provi jacky: HELIO CHAUDHARY, Status: Pen, Time: 8:00 AM [id number] 02/12/20 14 02/05/2014 [facility] AUDIT [id number] 2014 2014 [facility] AUDIT [id number] 02/13/2014 02/13/2014 [facility] E30, Provi jacky: HELIO CHAUDHARY, Status: Pen, Time: 9:00 AM [id number] 05/18/20 14 02/13/2014 [facility] Procedures No Data Provided for This Section Assessment and Plan No Data Provided for This Section Plan of Care Plan of Care Date Source [QL] VITAMIN D, 25-HYDROXY, LC/MS/MS 02/04/2014 Routin e 02/13/2014 [facility] [QL] VITAMIN D, 25-HYDROXY, LC/MS/MS 02/04/2014 Routin e 2014 [facility] [QL] VITAMIN D, 25-HYDROXY, LC/MS/MS 02/04/2014 Routin e 02/05/2014 [facility] [QL] VITAMIN D, 25-HYDROXY, LC/MS/MS 08/18/2013 Routin e 08/19/2013 [facility] Social History Social History Date Source Marital History - (Active ) Never A Smoker (Active) Never Drank Alcohol (Active) 02/13/2014 [facility] Family History Value Date S ource Family history of Coronary Artery Diseas e (V17.49); (Active) No Family history of Thyroid Cancer (Denied) No Family history of Pancreatitis (Denied) 02/13/2014 [facility] Family history of Coronary Artery Diseas e (V17.49); (Active) No Family history of Thyroid Cancer (Denied) No Family history of Pancreatitis (Denied) 2014 [facility] Family history of Coronary Artery Diseas e (V17.49); (Active) No Family history of Thyroid Cancer (Denied) No Family history of Pancreatitis (Denied) 02/05/2014 [facility] Family history of Coronary Artery Diseas e (V17.49); (Active) No Family history of Thyroid Cancer (Denied) 02/03/2014 [facility] Family history of Coronary Artery Diseas e (V17.49); (Active) No Family history of Thyroid Cancer (Denied) 12/04/2013 [facility] Family history of Coronary Artery Diseas e (V17.49); (Active) No Family history of Thyroid Cancer (Denied) 10/30/2013 [facility] Family history of Coronary Artery Diseas e (V17.49); (Active) No Family history of Thyroid Cancer (Denied) 08/20/2013 [facility] Family history of Coronary Artery Diseas e (V17.49); (Active) No Family history of Thyroid Cancer (Denied) 08/19/2013 [facility] Family history of Coronary Artery Diseas e (V17.49); (Active) No Family history of Thyroid Cancer (Denied) 08/18/2013 [facility] Family history of Coronary Artery Diseas e (V17.49); (Active) No Family history of Thyroid Cancer (Denied) 08/15/2013 [facility] Family history of Coronary Artery Diseas e (V17.49); (Active) No Family history of Thyroid Cancer (Denied) 05/14/2013 [facility] Advance Directives Order Name Results Value Date Source Advance Directives Advance Dir ectives No Advance Directives available. 02/13/2014 [facility] Advance Directives Advance Dir ectives No Advance Directives available. 2014 [facility] Advance Directives Advance Dir ectives No Advance Directives available. 02/05/2014 [facility] Advance Directives Advance Dir ectives No Advance Directives available. 02/03/2014 [facility] Advance Directives Advance Dir ectives No Advance Directives available. 12/04/2013 [facility] Advance Directives Advance Dir ectives No Advance Directives available. 10/30/2013 [facility] Advance Directives Advance Dir ectives No Advance Directives available. 08/20/2013 [facility] Advance Directives Advance Dir ectives No Advance Directives available. 08/19/2013 [facility] Advance Directives Advance Dir ectives No Advance Directives available. 08/18/2013 [facility] Advance Directives Advance Dir ectives No Advance Directives available. 08/15/2013 [facility] Advance Directives Advance Dir ectives No Advance Directives available. 05/14/2013 [facility] Functional Status No Data Provided for This Section
--- OUTSIDE RECORDS SUMMARY | 2020-04-28 03:16 | XMS REPORT | Continuity of Care Document ---
Author Author [facility] t Organization [facility] Address [address] [place] [address] Phone Unavailable Care Team Providers Care Divisional Storekeeper Name Role Phone Linda RODRIGUEZ PCP EDGARDO ALVARADO Attphys Unavailable Sandy ALICEA Attphys Unavailable GEM YODER RD Attphys Unavailable JUJU RODRIGUEZ D.O. Attphys Unavailable HELIO CHAUDHARY M.D. Attphys Unavailable YUAN CHOPRA M.D. Attphys Unavailable Vish Boston M.D. Attphys Unavailable EDGARDO ALVARADO Admphys Unavailable Payers Payer Name Policy Type Policy Number Effective Date Expiration Date S mary Medicare A & B NA 2000 00:00:00 [facility] Problems Condition Name Condition Details Condition Category Status Onset Date Resolution Date Last Treatment Date Treating Clinician Comments Source History of Meningioma History of Meningioma Problem HL7.CCDAR2 Resolved [facility] History of renal calculi History of renal calculi Problem HL7.CCDAR2 Resolved [facility] History of transient cerebral ischemia History of transient cerebral ischemia Problem HL7.CCDAR2 [facility] Obstructive sleep apnea Obstructive sleep apnea Problem HL7.CCDAR2 Activ e [facility] Exanthem Exanthem Problem HL7.CCDAR2 Active [facility] Need for influenza vaccination Need for influenza vaccinatio n Problem HL7.CCDAR2 Active [facility] 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 Problem HL7.CCDAR2 Active [facility] Restless leg syndrome Restless leg syndrome Problem HL7.CCDAR2 Active [facility] Neuropathy Neuropathy Problem HL7.CCDAR2 Active [facility] Reactive airway disease Reactive airway disease Problem HL7.CCDAR2 Activ e [facility] Need for vaccination with 13-polyvalent pneumococcal c onjugate vaccine Need for vaccination with 13-polyvalent pneumococcal conjugate vaccine Problem HL7.CCDAR2 Active [facility] Idiopathic peripheral neuropathy Idiopathic peripheral neuro farhan Problem HL7.CCDAR2 Active [facility] Intractable hiccups Intractable hiccups Problem HL7.CCDAR2 Active [facility] Peripheral neuropathy Peripheral neuropathy Problem HL7.CCDAR2 Active [facility] 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 with right-sided sciatica Problem HL7.CCDAR2 Active [facility] Chronic kidney disease, stage III (moderate) Chronic k idney disease, stage III (moderate) Problem HL7.CCDAR2 [facility] Arteriosclerosis of coronary artery Arteriosclerosis of yoko nary artery Problem HL7.CCDAR2 Active [facility] L4-L5 disc bulge L4-L5 disc bulge Problem HL7.CCDAR2 Active [facility] 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 Problem HL7.CCDAR2 Active [facility] Essential (primary) hypertension Essential (primary) hyperte nsion Problem HL7.CCDAR2 Active [facility] Mixed hyperlipidemia Mixed hyperlipidemia Problem HL7.CCDAR2 Active [facility] Hypothyroidism Hypothyroidism Problem HL7.CCDAR2 Active [facility] Vitamin D deficiency Vitamin D deficiency Problem HL7.CCDAR2 Active [facility] Thyroid cyst Thyroid cyst Problem HL7.CCDAR2 Active [facility] Encounter for long-term current use of medication Enco unter for long-term current use of medication Problem HL7.CCDAR2 Active [facility] Patient cannot afford medications Patient cannot afford medi cations Problem HL7.CCDAR2 Active [facility] Seasonal allergic rhinitis, unspecified chronicity, un specified trigger Seasonal allergic rhinitis, unspecified chronicity, unspecified trigger Problem HL7.CCDAR2 Active [facility] Acute bronchitis Acute bronchitis Problem HL7.CCDAR2 Active [facility] Healthcare-associated pneumonia Problem Active 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 Active 02/13/2014 [facility] Problem Active 2014-02-13 11:45:09 M filiberto Maloney Hypertension Hype rtension Active 02/13/2014 [facility] Problem Active 2014-02-13 11:45:09 Gunnar Maloney Mixed Hyperlipoproteinemia Mix ed Hyperlipoproteinemia Active 02/13/2014 [facility] Problem Active 2014-02-13 11:45: 09 Maico Maloney Coronary Artery Disease Yoko nary Artery Disease Active 02/13/2014 [facility] Problem Active 2014-02-13 11:45: 09 Maico Maloney Hypothyroidism Hypo thyroidism Active 02/13/2014 [facility] Problem Active 2014-02-13 11:45:09 M filiberto Maloney Vitamin D Deficiency Erin min D Deficiency Active 02/13/2014 [facility] Problem Active 2014-02-13 11:45:09 Maico Maloney Allergies, Adverse Reactions, Alerts Allergy Name Allergy Type Status Severity Reaction(s) Onset Date Inacti ve Date Treating Clinician Comments Source Cephalexin Allergy to substance Active 2019-11-24 00:00:00 [facility] cephalexin DA Active U 2019-10-02 00:00:00 [facility] nitrofurantoin DA Active [place] 2019-10-02 00:00:00 [facility] Nitrofurantoin Allergy to substance Active 2019-06-07 00:00 :00 [facility] No Known Allergies DA Active U 2012-02-01 00:00:00 [facility] No Known Drug Allergies No Known Drug Allergies Active [facility] Family History Family Member Diagnosis Comments Start Date Stop Date Source Unknown Family Member Family history of Coronary Artery Disease Family History [facility] Unknown Family Member Family History 2013-05-14 18:35:54 2 18:35:54 [facility] Mother Family history of Coronary Artery Disease [facility] Father Family history of Coronary Artery Disease [facility] Sister Family history of Coronary Artery Disease [facility] Sister Family history of diabetes mellitus [facility] Brother Family history of Coronary Artery Disease [facility] Social History Social Habit Start Date Stop Date Quantity Comments Source Social History 2014-02-13 11:45:09 2014-02-13 11:45:09 [facility] Sex Assigned At 1935 00:00:00 1935 00:00:[address] [facility] Smoking Status Start Date Stop Date Source Never smoker [facility] Medications Ordered Medication Name Filled Medication Name Start Date Stop Da te Current Medication? Ordering Clinician Indication Dosage Frequency Signature (SIG) Comments Components Source Acetaminophen Acetaminophen 2019-12-02 17:03:00 Yes 650 Every 6 Hours as needed for Mild Pain (1-3) Or Fever>100.8 [facility] Albuterol/Ipratropium Nebulize Albuterol/Ipratropium Nebuliz e 2019-12-02 17:03:00 Yes 3 Rt Q4h as needed for Shortnes s Of Breath [facility] Albuterol/Ipratropium Nebulize Albuterol/Ipratropium Nebuliz e 2019-12-02 17:03:00 Yes [address] [facility] Apixaban (Eliquis) 5 Mg TABLET Apixaban (Eliquis) 5 Mg TABLE T 2019-12-02 17:03:00 Yes [address] [facility] Atorvastatin Calcium (Lipitor*) 10 Mg TABLET Atorvasta tin Calcium (Lipitor*) 10 Mg TABLET 2019-12-02 17:03:00 Yes 10 Daily@0600 [facility] Benzonatate (Tessalon Perle) 100 Mg CAPSULE Benzonatat e (Tessalon Perle) 100 Mg CAPSULE 2019-12-02 17:03:00 Yes 200 Every 8 Ho urs as needed for Cough [facility] Calcium Carbonate Calcium Carbonate 2019-12-02 17:03:[address] [facility] Carvedilol (Coreg) 3.125 Mg TAB Carvedilol (Coreg) 3.125 Mg TAB 2019-12-02 17:03:00 Yes 6.[address] [facility] Dextrose (Dextrose 50%-Water Syringe) 50 Ml INJ Dextro se (Dextrose 50%-Water Syringe) 50 Ml INJ 2019-12-02 17:03:00 Yes 50 As Needed as needed for Blood Sugar [facility] Docusate Sodium (Colace) 100 Mg/10 Ml LIQD Docusate So dium (Colace) 100 Mg/10 Ml LIQD 2019-12-02 17:03:00 Yes [address] [facility] Famotidine/Pf (Famotidine 20 Mg/2 Ml Vial) 20 Mg/2 Ml VIAL Famotidine/Pf (Famotidine 20 Mg/2 Ml Vial) 20 Mg/2 Ml VIAL 2019-12-02 17:03:00 Yes 20 Twice A Day [facility] Fluticasone Propionate Fluticasone Propionate 2019-12-02 17:03:00 Yes 0 Daily [facility] Furosemide Furosemide 2019-12-02 17:03:[address] [facility] Insulin Lispro Insulin Lispro 2019-12-02 17:03:00 Yes [address] [facility] Levalbuterol Hcl (Xopenex) 0.63 Mg/3 Ml VIAL.NEB Leval buterol Hcl (Xopenex) 0.63 Mg/3 Ml VIAL.NEB 2019-12-02 17:03:00 Yes .63 Rt Q6h as needed for Shortness Of Breath [facility] Loratadine Loratadine 2019-12-02 17:03:[address] Yes [address] [facility] Metoprolol Tartrate Inj Metoprolol Tartrate Inj 2019-12-02 17:03:00 Yes 2.5 Every 6 Hours as needed for Hr>110, Sbp>160 [facility] Morphine Sulfate 2MG/Ml Morphine Sulfate 2MG/Ml 2019-12-02 17:03:00 Yes 1 Every 6 Hours as needed for Severe Pain (7-10) [facility] Nystatin Nystatin 2019-12-02 17:03:00 Yes [address] [facility] Ondansetron Hcl/Pf (Ondansetron Hcl 4 Mg/2 Ml Vial) 4 Mg/2 Ml VIAL Ondansetron Hcl/Pf (Ondansetron Hcl 4 Mg/2 Ml Vial) 4 Mg/2 Ml VIAL 2019-12-02 17:03:00 Yes 4 Every 6 Hours as needed for Nausea And V omiting [facility] Potassium Chloride 20MEQ/15ML Potassium Chloride 20MEQ/15ML 2019 17:03:[address] [facility] Tamsulosin Hcl (Flomax*) 0.4 Mg CAP Tamsulosin Hcl (Flomax*) 0.4 Mg CAP 2019-12-02 17:03:[address] [facility] Triamcinolone Acet (Triamcinolone Acetonide) 15 Gm CR Triamcinolone Acet (Triamcinolone Acetonide) 15 Gm CR 2019-12-02 17:03:00 Yes 0 Twice A Day [facility] Accu-Chek Joelle Plus In Vitro Strip Accu-Chek Joelle Plus In Vitro Strip 2018 13:19:12 Yes HELIO CHAUDHARY M.D. Chec k three to four times daily [facility] EQL Fluticasone Propionate 50 MCG/ACT Nasal Suspension EQL Fluticasone Propionate 50 MCG/ACT Nasal Suspension 2018-01-29 00:00:00 Yes JUJU RODRIGUEZ D.O. Q0.5D USE 1 SPRAY IN EACH NOSTRIL TWICE DAILY. [facility] Tresiba FlexTouch 100 UNIT/ML Subcutaneous Solution Pe n-injector Tresiba FlexTouch 100 UNIT/ML Subcutaneous Solution Pen-injector 2018-01-21 00:00:00 Yes HELIO CHAUDHARY M.D. Inject 10 un its every day; may self titrate up to 45 units a day [facility] Diclofenac Sodium 1 % Transdermal Gel Diclofenac Sodium 1 % Transdermal Gel 2018-01-14 00:00:00 Yes QD APPLY TO LOWER EXTREMITIES, 4 GM OF GEL TO AFFECTED AREA 4 TIMES DAILY. DO NOT APPLY MORE THAN 16 GM DAILY TO ANY ONE AFFECTED JOINT. [facility] Hydrocodone-Acetaminophen 5-325 MG Oral Tablet Hydroco done-Acetaminophen 5-325 MG Oral Tablet 2018-01-14 00:00:00 Yes TAKE 1 TABLET EVERY 4 TO 6 HOURS NEEDED. [facility] MethylPREDNISolone 4 MG Oral Tablet Therapy Pack Methy lPREDNISolone 4 MG Oral Tablet Therapy Pack 2018-01-14 00:00:00 Yes JUJU RODRIGUEZ D.O. take as directed on package [facility] Ventolin HFA 108 (90 Base) MCG/ACT Inhalation Aerosol Solution Ventolin HFA 108 (90 Base) MCG/ACT Inhalation Aerosol Solution 2018-01-14 00:00:00 Yes SERG RODRIGUEZ D.O. INHALE 1 TO 2 PUFFS BY MOUTH EVER Y 4 TO 6 HOURS NEEDED [facility] Promethazine VC/Codeine 6.25-5-10 MG/5ML Oral Syrup Pr omethazine VC/Codeine 6.25-5-10 MG/5ML Oral Syrup 2018-01-14 00:00:00 Yes JUJU RODRIGUEZ D. O. TAKE 5 ML EVERY 4 TO 6 HOURS NEEDED. [facility] Fenofibrate 48 MG Oral Tablet Fenofibrate 48 MG Oral Tablet 2017 09:01:10 Yes HELIO CHAUDHARY M.D. TAKE 1 TA BLET BY MOUTH DAILY WITH FOOD REPLACING LOVAZA [facility] Hydrocodone-Acetaminophen 5-325 MG Oral Tablet Hydroco done-Acetaminophen 5-325 MG Oral Tablet 2017-11-30 00:00:00 Yes HELIO CHAUDHARY M.D. [facility] TiZANidine HCl - 2 MG Oral Tablet TiZANidine HCl - 2 MG Oral Tablet 2017-11-30 00:00:00 Yes HELIO CHAUDHARY M.D. [facility] Tamsulosin HCl - 0.4 MG Oral Capsule Tamsulosin HCl - 0.4 MG Oral Capsule 2017-11-30 00:00:00 Yes HELIO CHAUDHARY M.D. [facility] Zantac 150 Maximum Strength 150 MG Oral Tablet Zantac 150 Maximum Strength 150 MG Oral Tablet 2017-11-30 00:00:00 Yes HELIO CHAUDHARY M.D. [facility] ROPINIRole HCl - 5 MG Oral Tablet ROPINIRole HCl - 5 MG Oral Tablet 2017-08-23 10:55:01 Yes JUJU RODRIGUEZ D.ONuha TAKE 1 TABLET AT BEDTIME [facility] Fluticasone Propionate 50 MCG/ACT Nasal Suspension Flu ticasone Propionate 50 MCG/ACT Nasal Suspension 2017-07-30 00:00:00 Yes JUJU RODRIGUEZ D.ONuha QD USE 2 SPRAYS IN EACH NOSTRIL ONCE DAILY [facility] Promethazine VC Plain 6.25-5 MG/5ML SYRP Promethazine VC Plain 6.25-5 MG/5ML SYRP 2017-07-30 00:00:00 Yes JUJU RODRIGUEZ D.ONuha TAKE 5 ML EVERY 4 TO 6 HOURS NEEDED. [facility] Januvia 100 MG Oral Tablet Januvia 100 MG Oral Tablet 2017-07-06 08:2 3:25 Yes HELIO CHAUDHARY M.D. TAKE 1 TABLET BY MOUTH EVERY DAY ,MAY DECREASE TO 1/2 TABLET IF NECESSARY [facility] Levothyroxine Sodium 88 MCG Oral Tablet Levothyroxine Sodium 88 MCG Oral Tablet 2017-06-21 10:34:12 Yes HELIO CHAUDHARY M.D. TAKE 1 TA BLET EVERY DAY [facility] NovoLOG FlexPen 100 UNIT/ML Subcutaneous Solution Pen- injector NovoLOG FlexPen 100 UNIT/ML Subcutaneous Solution Pen-injector 2015-03-29 00:00:00 Duane CHAUDHARY M.D. 2 unit before the two main meals of the day; CF 40 [facility] BD Pen Needle Maria Guadalupe U/F 32G X 4 MM BD Pen Needle Maria Guadalupe U/F 32G X 4 MM 2015-03-29 00:00:00 Yes HELIO CHAUDHARY M.D. 3 a day as need ed for insulin injections [facility] Losartan Potassium 100 MG Oral Tablet Losartan Potassium 100 MG Oral Tablet 2014-08-20 00:00:00 Yes HELIO CHAUDHARY M.D. Per cardi ologist [facility] Accu-Chek Joelle Plus In Vitro Strip 2014-02-13 05:00:00 Yes ; Start Date: 02/13/2014 (Active) Maico doss Accu-Chek Softclix Lancets Miscellaneous 2014-02-13 05:00:00 Yes ; Start Date: 02/13/2014 (Active) Maico Maloney Accu-Chek Softclix Lancets Accu-Chek Softclix Lancets 2014-02-13 00:0 0:00 Yes HELIO CHAUDHARY M.D. USE TO CHECK BLOOD GLUCOSE TWICE D LISSETTE [facility] Levothyroxine Sodium 88 MCG Oral Tablet 2014-02-05 05:00:00 Yes ; Start Date: 02/05/2014 (Active) Maico [place] OneTouch Ultra Mini w/Device Kit 2013-12-04 06:00:00 Yes ; Start Date: 12/04/2013 (Active) Maico Donna nn Accu-Chek Maria Guadalupe SmartView w/Device Kit 2013-12-04 06:00:00 Y es ; Start Date: 12/04/2013 (Active) Maico Maloney FreeStyle Lancets Miscellaneous 2013-08-18 05:00:00 Yes ; Start Date: 08/18/2013 (Active) Maico Anguloedward doss OneTouch Delica Lancets Fine Miscellaneous 2013-08-18 05:00:00 Yes ; Start Date: 08/18/2013 (Active) Maico Anguloann Accu-Chek FastClix Lancets Miscellaneous 2013-08-18 05:00:00 Yes ; Start Date: 08/18/2013 (Active) Maico Maloney Furosemide 40 MG Oral Tablet 2013-05-14 05:00:00 Yes ; Start Date: 05/14/2013 (Active) Maico Maloney Tamsulosin HCl 0.4 MG Oral Capsule 2013-05-14 05:00:00 Yes ; Start Date: 05/14/2013 (Active) Maico Donna nn Furosemide 40 MG Oral Tablet Furosemide 40 MG Oral Tablet 2013-04-20 00:00:00 Yes 1.5 TABLET TWICE DAILY ORAL TABLET: Per tube roller [facility] ROPINIRole HCl 5 MG Oral Tablet 2013-03-04 05:00:00 Yes ; Start Date: 03/04/2013 (Active) Maico Donna nn BD Pen Needle Maria Guadalupe U/F 32G X 4 MM Miscellaneous 2012-10-08 06:00 :00 Yes ; Start Date: 10/08/2012 (Active) Maico Maloney NovoLOG FlexPen 100 UNIT/ML Subcutaneous Solution 2012-09-30 06:00:00 Yes ; Start Date: 09/30/2012 (Active) Maico Maloney FreeStyle Lite Test In Vitro Strip 2012-09-24 06:00:00 Yes ; Start Date: 09/24/2012 (Active) Maico doss Aspirin 81 MG Oral Tablet 2012-09-24 06:00:00 Yes ; Start Date: 09/24/2012 (Active) Maico Maloney Glimepiride 2 MG Oral Tablet 2012-09-24 06:00:00 Yes ; Start Date: 09/24/2012 (Active) Maico Maloney AmLODIPine Besylate 10 MG Oral Tablet 2012-09-24 06:00:00 Y es ; Start Date: 09/24/2012 (Active) Maico Maloney Avapro 300 MG Oral Tablet 2012-09-24 06:00:00 Yes ; Start Date: 09/24/2012 (Active) Maico Maloney Digoxin 0.125 MG Oral Tablet 2012-09-24 06:00:00 Yes ; Start Date: 09/24/2012 (Active) Maico Maloney Amiodarone HCl 200 MG Oral Tablet 2012-09-24 06:00:00 Yes ; Start Date: 09/24/2012 (Active) aMico doss Micro-K 8 MEQ Oral Capsule Extended Release 2012-09-24 06:00:00 Yes ; Start Date: 09/24/2012 (Active) Trevor Beasley Atorvastatin Calcium 20 MG Oral Tablet 2012-09-24 06:00:00 Yes ; Start Date: 09/24/2012 (Active) Maico Maloney Vitamin D 2000 UNIT Oral Capsule 2012-09-24 06:00:00 Yes ; Start Date: 09/24/2012 (Active) Maico doss Niaspan 750 MG Oral Tablet Extended Release 2012-09-24 06:00:00 Yes ; Start Date: 09/24/2012 (Active) Trevor Beasley Levothyroxine Sodium 50 MCG Oral Tablet 2012-09-24 06:00:00 Yes ; Start Date: 09/24/2012 (Active) Maico Maloney OneTouch Ultra Blue In Vitro Strip 2012-09-24 06:00:00 Yes ; Start Date: 09/24/2012 (Active) Maico Anguloedward doss Niacin ER (Antihyperlipidemic) 750 MG Oral Tablet Extended R elease 2012-09-24 06:00:00 Yes ; Start Date: 09/24/2012 (Act grecia) Maico Anguloann Accu-Chek SmartView In Vitro Strip 2012-09-24 06:00:00 Yes ; Start Date: 09/24/2012 (Active) Maico Donna nn Glimepiride 1 MG Oral Tablet 2012-09-24 06:00:00 Yes ; Start Date: 09/24/2012 (Active) Maico Anguloann Amiodarone HCl 100 MG Oral Tablet 2012-09-24 06:00:00 Yes ; Start Date: 09/24/2012 (Active) Maico Anguloedward doss Micro-K 8 MEQ Oral Capsule Extended Release 2012-09-24 06:00:00 Yes ; Start Date: 09/24/2012 (Active) Trevor Beasley Aspirin 81 MG TABS Aspirin 81 MG TABS 2012-09-24 00:00:00 Kirby CHAUDHARY M.D. 1 a day [facility] Glimepiride 1 MG Oral Tablet Glimepiride 1 MG Oral Tablet 00:00:00 Yes HELIO CHAUDHARY M.D. TAKE 1 TABLE T IN THE MORNING, 1 TABLET AT NOON AND TAKE 2 TABLETS WITH SUPPER (TAKE WITH FOOD) HOLD STARTING 01-21-18 [facility] AmLODIPine Besylate 10 MG Oral Tablet AmLODIPine Besylate 10 MG Oral Tablet 2012-09-24 00:00:00 Yes HELIO CHAUDHARY M.D. 1 a day [facility] Digoxin 125 MCG Oral Tablet Digoxin 125 MCG Oral Tablet 2012-09-24 00:00:00 Yes 1 QD TAKE 1 TABLET DAILY. [facility] Amiodarone HCl - 100 MG Oral Tablet Amiodarone HCl - 100 MG Oral Tablet 2012-09-24 00:00:00 Yes QD TAKE 1 TABLET NII Y DIRECTED. [facility] Micro-K 8 MEQ Oral Capsule Extended Release Micro-K 8 MEQ Oral Capsule Extended Release 2012-09-24 00:00:00 Yes HELIO CHAUDHARY M.D. [facility] Atorvastatin Calcium 20 MG Oral Tablet Atorvastatin Calcium 20 MG Oral Tablet 2012-09-24 00:00:00 Yes HELIO CHAUDHARY M.D. TAKE 1 TABLET DAILY AT BEDTIME. [facility] Vitamin D3 5000 UNIT Oral Capsule Vitamin D3 5000 UNIT Oral Capsule 2012-09-24 00:00:00 Yes HELIO CHAUDHARY M.D. 1 a day since [facility] Lycopene 10 MG Oral Capsule Lycopene 10 MG Oral Capsule Yes 1 Q0.5D TAKE 1 CAPSULE TWICE DAILY [facility] Melatonin 10 MG Oral Tablet Melatonin 10 MG Oral Tablet Yes QD take 5- 10mg qd [facility] Amiodarone Hcl Amiodarone Hcl Yes [facility] Atorvastatin Calcium (Lipitor) 20 Mg TABLET Atorvastat in Calcium (Lipitor) [address] [facility] Carvedilol Carvedilol Yes [facility] Hydrocodone Bit/Acetaminophen (Hydrocodon-Acetaminophn 10-325) 1 Each TABLET Hydrocodone Bit/Acetaminophen (Hydrocodon-Acetaminophn 10-325) [address] [facility] Trazodone Hcl Trazodone Hcl Yes [facility] Avanafil (Stendra) 200 Mg TABLET Avanafil (Stendra) 200 Mg TABLE T 2019-12-02 00:00:00 [facility] Insulin Aspart (Novolog) 100 Units/1 Ml INJ Insulin As part (Novolog) 100 Units/1 Ml INJ 2019-12-02 00:00:00 [facility] Lycopene Lycopene 2019-12-02 00:00:00 [facility] Tamsulosin Tamsulosin 2019-12-02 00:00:00 [facility] Testosterone Enanthate Testosterone Enanthate 2019-12-02 00:00:00 [facility] Tizanidine Hcl Tizanidine Hcl 2019-12-02 00:00:00 [facility] Immunizations Ordered Immunization Name Filled Immunization Name Date Status Comments Source Fluzone Quadrivalent 0.5 ML Intramuscular Suspension Prefill ed Syringe 2017-07-30 00:00:00 Completed [facility] Prevnar 13 Intramuscular Suspension 2016-09-12 12:20:00 Co mpleted [facility] Fluzone High-Dose 0.5 ML Intramuscular Suspension Prefilled Syringe 2016-09-12 08:35:00 Completed [facility] Fluzone High-Dose 0.5 ML Intramuscular Suspension Prefilled Syringe 2015-09-17 08:52:00 Completed [facility] Fluzone INJ 2014-08-20 08:57:00 Completed [facility] Influenza 2012-09-30 00:00:00 Completed [facility] Vital Signs Vital Name Observation Time Observation Value Comments Source Weight 2020-03-24 02:49:00 174 [lb_av] [facility] BMI (Body Mass Index) 2020-03-24 02:49:00 25.7 kg/m2 [facility] Body Temperature 2019-12-05 15:34:00 96.9 [degF] [facility] Weight 2018-02-13 11:00:00 178.9 [lb_av] [facility] Body Mass Index Calculated 2018-02-13 11:00:00 26.42 kg/m2 [facility] BP Systolic 2018-01-29 12:38:00 138 mm[Hg] Location: SONAL Becerril on: Sitting [facility] BP Diastolic 2018-01-29 12:38:00 68 mm[Hg] Location: SONAL Becerril on: Sitting [facility] Height 2018-01-29 12:38:00 69 [in_us] [facility] Weight 2018-01-29 12:38:00 183 [lb_av] [facility] Body Mass Index Calculated 2018-01-29 12:38:00 27.02 kg/m2 [facility] Temperature 2018-01-29 12:38:00 98.7 [degF] Method: Temporal [facility] Respiration Rate 2018-01-29 12:38:00 16 /min [facility] Heart Rate 2018-01-29 12:38:00 93 /min [facility] BP Systolic 2018-01-21 15:10:00 132 mm[Hg] [facility] BP Diastolic 2018-01-21 15:10:00 70 mm[Hg] [facility] BP Systolic 2018-01-21 14:53:00 117 mm[Hg] Location: LUE; Positi on: Sitting [facility] BP Diastolic 2018-01-21 14:53:00 62 mm[Hg] Location: LUE; Positi on: Sitting [facility] Height 2018-01-21 14:53:00 69 [in_us] [facility] Weight 2018-01-21 14:53:00 175.5625 [lb_av] [facility] Body Mass Index Calculated 2018-01-21 14:53:00 25.93 kg/m2 [facility] Heart Rate 2018-01-21 14:53:00 86 /min [facility] BP Systolic 2018-01-14 15:38:00 143 mm[Hg] Location: LUE; Positi on: Sitting [facility] BP Diastolic 2018-01-14 15:38:00 74 mm[Hg] Location: LUE; Positi on: Sitting [facility] Height 2018-01-14 15:38:00 69 [in_us] [facility] Weight 2018-01-14 15:38:00 183 [lb_av] [facility] Body Mass Index Calculated 2018-01-14 15:38:00 27.02 kg/m2 [facility] Temperature 2018-01-14 15:38:00 97.9 [degF] Method: Temporal [facility] Respiration Rate 2018-01-14 15:38:00 16 /min [facility] Heart Rate 2018-01-14 15:38:00 95 /min [facility] Weight 2018-01-02 10:59:00 184 [lb_av] [facility] Body Mass Index Calculated 2018-01-02 10:59:00 27.17 kg/m2 [facility] BP Systolic 2017-11-30 09:33:00 144 mm[Hg] [facility] BP Diastolic 2017-11-30 09:33:00 64 mm[Hg] [facility] BP Systolic 2017-11-30 09:11:00 141 mm[Hg] Location: LUE; Positi on: Sitting [facility] BP Diastolic 2017-11-30 09:11:00 64 mm[Hg] Location: LUE; Positi on: Sitting [facility] Height 2017-11-30 09:11:00 69 [in_us] [facility] Weight 2017-11-30 09:11:00 179.375 [lb_av] [facility] Body Mass Index Calculated 2017-11-30 09:11:00 26.49 kg/m2 [facility] Heart Rate 2017-11-30 09:11:00 84 /min [facility] Procedures Procedure Date / Time Performed Performing Clinician Dave e INSERTION OF FEEDING DEVICE INTO STOMACH, PERC APPROACH 00:00:00 [facility] CT of abdomen and pelvis without contrast 2019-11-30 00:00:00 [facility] INSERTION OF FEEDING DEVICE INTO STOMACH, VIA OPENING 2019-11-28 00:00:00 [facility] ASSISTANCE WITH RESPIRATORY VENTILATION, <24 HRS, CPAP 8 00:00:00 [facility] X-ray of chest, two views 2019-11-25 00:00:00 LUCÍA SWEENEY CH I [facility] Computed tomography of soft tissues of neck without co ntrast 2019-06-07 00:00:00 TODD ALICEA [facility] [[facility]] T4, FREE 2017-11-30 00:00:00 [facility] [[facility]] VITAMIN D, 25-HYDROXY, LC/MS/MS 2017-11-30 00:00:00 [facility] [[facility]] CMP W/EGFR 2017-11-30 00:00:00 [facility] [[facility]] TSH, 3RD GENERATION 2017-11-30 00:00[facility]00 [facility] History of Knee Replacement [facility] History of Hemorrhoidectomy [facility] History of Implantable Cardioverter-Defibrillator [facility] Plan of Care Planned Activity Planned Date Details Comments Source Future Scheduled Test 2014-02-13 11:45:09 Plan of Care [code = 1877 6-5] [facility] Future Scheduled Test 2014 22:30:23 Plan of Care [code = 1877 6-5] [facility] Scheduled Test 2014-02-05 23:00:13 Plan of Care [code = 1877 6-5] [facility] Scheduled Test 2013-08-19 18:00:30 Plan of Care [code = 1877 6-5] [facility] Encounters Start Date/Time End Date/Time Encounter Type Admission Type Attendi [facility] Care Department Encounter ID Source 2019-09-17 11:56:45 Outpatient [facility] [id number] [facility] 2020-03-24 02:44:00 2020-03-24 04:16:00 Departed Emergency Room [facility] [id number] [facility] 2019-11-24 10:16:00 2019-12-05 19:51:00 Discharged Inpatient 1 EDGARDO ALVARADO [facility] [id number] [facility] 2019-06-19 10:32:00 2019-06-19 10:32:00 Outpatient [id number] 2019-06-06 23:46:00 2019-06-07 02:01:00 Departed Emergency Room 1 TODD ALICEA [facility] [id number] [facility] 2019-05-29 09:08:00 2019-05-29 09:08:00 Outpatient [facility]SE MHSE [id number] 2019-04-24 08:39:00 2019-04-24 08:39:00 Outpatient [facility] [id number] [facility] 2018-02-13 10:00:00 2018-02-13 10:00:00 Appointment; GEM YODER RD WRIGHT, TISH, RD [facility] [id number] [facility] 2018-01-29 12:30:00 2018-01-29 12:30:00 Appointment; JUJU RODRIGUEZ D.O. YEH, SHAO-CHUN, D.O. [facility] [id number] [facility] 2018-01-21 14:45:00 2018-01-21 14:45:00 Appointment; HELIO CHAUDHARY M .D. CHIU, ALICE, M.D. UTP [facility] [id number] [facility] 2018-01-14 15:45:00 2018-01-14 15:45:00 Appointment; JUJU RODRIGUEZ D.O. YEH, SHAO-CHUN, D.O. [facility] [id number] [facility] 2018-01-02 10:00:00 2018-01-02 10:00:00 Appointment; GEM YODER RD WRIGHT, TISH, RD UTP [facility] [id number] [facility] 2017-11-30 09:00:00 2017-11-30 09:00:00 Appointment; HELIO CHAUDHARY M .D. CHIU, ALICE, M.D. UTP [facility] [id number] [facility] 2017-08-07 08:30:00 2017-08-07 08:30:00 Appointment; HELIO CHAUDHARY M .D. CHIU, ALICE, M.D. UTP UTP [id number] [facility] 2017-07-30 12:45:00 2017-07-30 12:45:00 Appointment; JUJU RODRIGUEZ D.O. YEH, SHAO-CHUN, D.O. UTP UTP [id number] [facility] 2017-06-07 09:30:00 2017-06-07 09:30:00 Appointment; JUJU RODRIGUEZ D.O. YEH, SHAO-CHUN, D.O. UTP UTP [id number] [facility] 2017-05-29 14:30:00 2017-05-29 14:30:00 Appointment; JUJU RODRIGUEZ D.O. YEH, SHAO-CHUN, D.O. UTP UTP [id number] [facility] 2017-04-10 08:30:00 2017-04-10 08:30:00 Appointment; HELIO CHAUDHARY M .D. CHIU, ALICE, M.D. UTP UTP [id number] [facility] 2017-03-26 15:00:00 2017-03-26 15:00:00 Appointment; JUJU RODRIGUEZ D.O. YEH, SHAO-CHUN, D.O. UTP UTP [id number] [facility] 2016-12-27 08:30:00 2016-12-27 08:30:00 Appointment; HELIO CHAUDHARY M .D. CHIU, ALICE, M.D. UTP UTP [id number] [facility] 2016-09-12 11:00:00 2016-09-12 11:00:00 Appointment; JIM CHOPRA M.D. PERKISON, WILLIAM, M.D. UTP UTP [id number] [facility] 2016-09-12 08:30:00 2016-09-12 08:30:00 Appointment; HELIO CHAUDHARY M .D. CHIU, ALICE, M.D. UTP UTP [id number] [facility] 2016-05-17 08:00:00 2016-05-17 08:00:00 Appointment; HELIO CHAUDHARY M .D. CHIU, ALICE, M.D. UTP UTP [id number] [facility] 2016-01-05 08:00:00 2016-01-05 08:00:00 Appointment; HELIO CHAUDHARY M .D. CHIU, ALICE, M.D. UTP UTP [id number] [facility] 2015-10-18 13:00:00 2015-10-18 13:00:00 Appointment; Vish Boston M.D . Wang, Run, M.D. UTP UTP [id number] [facility] 2014-02-13 06:45:10 2014-02-13 06:45:09 Outpatient MHIE MHIE [id number] 2014 17:30:24 2014 17:30:23 Outpatient MHIE MHIE [id number] 2014-02-05 18:00:14 2014-02-05 18:00:13 Outpatient MHIE MHIE [id number] 2014-02-03 07:45:26 2014-02-03 07:45:25 Outpatient MHIE MHIE [id number] 2013-12-04 11:35:31 2013-12-04 11:35:30 Outpatient MHIE MHIE [id number] 2013-10-30 07:15:23 2013-10-30 07:15:22 Outpatient ANA RAWLS [id number] 2013-08-20 07:00:06 2013-08-20 07:00:06 Outpatient CURLY RAWLS [id number] 2013-08-19 13:00:31 2013-08-19 13:00:30 Outpatient CURLY RAWLS [id number] 2013-08-18 06:30:07 2013-08-18 06:30:06 Outpatient CURLY RAWLS [id number] 2013-08-15 17:30:21 2013-08-15 17:30:20 Outpatient CURLY RAWLS [id number] 2013-05-14 13:36:14 2013-05-14 13:35:54 Outpatient ANA ANA [id number] Results Test Description Test Time Test Comments Results Result Comments Source Bedside Glucose 2019-12-05 11:58:00 Test Item Bedside Glucose (test code = 53118-3) 194 70-120 H Meter ID: [id number]. David's Medical CenterDifferential Total Cells Lciupfg2079-44-05 09:22:00* Test Item Value Reference Range Interpretation Comments Differential Total Cells Counted (test code = Differen tial Total Cells Counted) 100 [facility] [facility] CenterNeutrophils % (Manual)2019-12-05 09:22:00 * Test Item Value Reference Range Interpretation Comments Neutrophils % (Manual) (test code = 48137-5) 87 40-[address] [facility] CenterLymphocytes % (Manual)2019-12-05 09:22:00 * Test Item Value Reference Range Interpretation Comments Lymphocytes % (Manual) (test code = 737-7) 9 19-[address] [facility] CenterMonocytes % (Manual)2019-12-05 09:22:00* Test Item Value Reference Range Interpretation Comments Monocytes % (Manual) (test code = 744-3) 4 3.4-9.0 [facility] CenterPlatelet Gmxmxgkf8362-91-49 09:22:00* Test Item Value Reference Range Interpretation Comments Platelet Estimate (test code = 28147-6) ADEQUATE [facility] CenterPlatelet Morphology Rqocujt5766-31-28 09:22:00* Test Item Value Reference Range Interpretation Comments Platelet Morphology Comment (test code = 14046-1) NORMAL [facility] CenterRed Cell Morphology Nlqwqfg9840-58-29 09:22:00* Test Item Value Reference Range Interpretation Comments Red Cell Morphology Comment (test code = 6742-1) [facility] Gqsyk7773-76-43 04:27:00* Test Item Value Reference Range Interpretation Comments Sodium Level (test code = 2951-2) 147 136-[address] [facility] CenterPotassium Ruzjn6071-25-38 04:27:00* Test Item Value Reference Range Interpretation Comments Potassium Level (test code = 2823-3) 4.8 3.5-5.1 [facility] CenterChloride Fbikk8109-45-00 04:27:00* Test Item Value Reference Range Interpretation Comments Chloride Level (test code = 2075-0) 111 98-[address] [facility] CenterCarbon Dioxide Ivjug7767-93-52 04:27:00* Test Item Value Reference Range Interpretation Comments Carbon Dioxide Level (test code = 2028-9) 27 22-29 [facility] CenterAnion Set7533-18-43 04:27:00* Test Item Value Reference Range Interpretation Comments Anion Gap (test code = 24881-3) 13.8 8-16 [facility] CenterBlood Urea Qvhhpubb7857-20-15 04:27:00* Test Item Value Reference Range Interpretation Comments Blood Urea Nitrogen (test code = 3094-0) 39 7-[address] [facility] CenterCreatinine2020-01-17 04:27:00* Test Item Value Reference Range Interpretation Comments Creatinine (test code = 2160-0) 1.35 0.72-1.[address] [facility] CenterBUN/Creatinine Cbord7484-99-62 04:27:00* Test Item Value Reference Range Interpretation Comments BUN/Creatinine Ratio (test code = 3097-3) 29 6-[address] [facility] Medical CenterEstimat Glomerular Filtration Rate 2019-12-05 04:27:00* Test Item Value Reference Range Interpretation Comments Estimat Glomerular Filtration Rate (test code = 976394031) 50 >60 L Ranges were taken from the National Kidney Disease Education Program and the [facility] Kid[facility] Foundation literature.Reference ranges:60 or greater: Qiywrq70-80 ( for 3 consecutive months): Chronic kidney disease 15 or less: Kidney failureSt. David's Medical CenterGlucose Lgbqf5452-60-03 04:27:00* Test Item Value Reference Range Interpretation Comments Glucose Level (test code = ZZI9572) 217 74-[address] [facility] CenterCalcium Xifcu5164-57-76 04:27:00* Test Item Value Reference Range Interpretation Comments Calcium Level (test code = 37014-5) 8.2 8.4-10.[address] [facility] CenterWhite Blood Ubfhl8542-34-26 04:25:00* Test Item Value Reference Range Interpretation Comments White Blood Count (test code = 6690-2) 8.10 4.8-10.8 [facility] CenterRed Blood Nnpmo3426-89-46 04:25:00* Test Item Value Reference Range Interpretation Comments Red Blood Count (test code = 789-8) 3.50 4.3-5.[address] [facility] CenterHemoglobin2020-01-17 04:25:00* Test Item Value Reference Range Interpretation Comments Hemoglobin (test code = 05350-5) 10.9 14.0-18.[address] [facility] CenterHematocrit2020-01-17 04:25:00* Test Item Value Reference Range Interpretation Comments Hematocrit (test code = 4544-3) 36.0 38.2-49.[address] [facility] CenterMean Corpuscular Ingxca9746-88-46 04:25:00* Test Item Value Reference Range Interpretation Comments Mean Corpuscular Volume (test code = 787-2) 102.9 81-[address] [facility] Medical CenterMean Corpuscular Vhyokzrgzq5947-46-43 04:25:00* Test Item Value Reference Range Interpretation Comments Mean Corpuscular Hemoglobin (test code = 785-6) 31.1 28-32 [facility] Medical CenterMean Corpuscular Hemoglobin Concent 2019-12-05 04:25:00* Test Item Value Reference Range Interpretation Comments Mean Corpuscular Hemoglobin Concent (test code = 786-4) 30.3 31-[address] [facility] CenterRed Cell Distribution Urdjr0226-52-41 04:25:00* Test Item Value Reference Range Interpretation Comments Red Cell Distribution Width (test code = 20931-1) 15.8 11.7 -14.[address] [facility] CenterPlatelet Ddaeu2863-41-05 04:25:00* Test Item Value Reference Range Interpretation Comments Platelet Count (test code = 777-3) 197 140-360 [facility] CenterNeutrophils (%) (Auto)2019-12-05 04:25:00 * Test Item Value Reference Range Interpretation Comments Neutrophils (%) (Auto) (test code = 12382-3) 81.9 38.7-80.[address] [facility] CenterLymphocytes (%) (Auto)2019-12-05 04:25:00 * Test Item Value Reference Range Interpretation Comments Lymphocytes (%) (Auto) (test code = 736-9) 8.8 18.0-39.[address] [facility] CenterMonocytes (%) (Auto)2019-12-05 04:25:00* Test Item Value Reference Range Interpretation Comments Monocytes (%) (Auto) (test code = 5905-5) 5.4 4.4-11.3 [facility] CenterEosinophils (%) (Auto)2019-12-05 04:25:00 * Test Item Value Reference Range Interpretation Comments Eosinophils (%) (Auto) (test code = 713-8) 0.2 0.0-6.0 [facility] CenterBasophils (%) (Auto)2019-12-05 04:25:00* Test Item Value Reference Range Interpretation Comments Basophils (%) (Auto) (test code = 706-2) 0.2 0.0-1.0 [facility] CenterIM GRANULOCYTES %2019-12-05 04:25:00* Test Item Value Reference Range Interpretation Comments IM GRANULOCYTES % (test code = IM GRANULOCYTES %) 3.5 0.0- 1.[address] [facility] CenterNeutrophils # (Auto)2019-12-05 04:25:00* Test Item Value Reference Range Interpretation Comments Neutrophils # (Auto) (test code = 751-8) 6.6 2.1-6.9 [facility] CenterLymphocytes # (Auto)2019-12-05 04:25:00* Test Item Value Reference Range Interpretation Comments Lymphocytes # (Auto) (test code = 15031-5) 0.7 1.0-3.[address] [facility] CenterMonocytes # (Auto)2019-12-05 04:25:00* Test Item Value Reference Range Interpretation Comments Monocytes # (Auto) (test code = 742-7) 0.4 0.2-0.8 [facility] CenterEosinophils # (Auto)2019-12-05 04:25:00* Test Item Value Reference Range Interpretation Comments Eosinophils # (Auto) (test code = 711-2) 0.0 0.0-0.4 [facility] CenterBasophils # (Auto)2019-12-05 04:25:00* Test Item Value Reference Range Interpretation Comments Basophils # (Auto) (test code = 704-7) 0.0 0.0-0.1 [facility] CenterAbsolute Immature Granulocyte (auto 2019-12-05 04:25:00* Test Item Value Reference Range Interpretation Comments Absolute Immature Granulocyte (auto (leatha t code = Absolute Immature Granulocyte (auto) 0.28 0-0.[address] [facility] CenterBlood leukocytes automated count (number/volume)2019-12-05 02:30:00* Test Item Value Reference Range Interpretation Comments White Blood Count (test code = 6690-2) 8.10 4.8-10.8 [facility] CenterBlmahnomen health center erythrocytes automated count (number/volume)2019-12-05 02:30:00* Test Item Value Reference Range Interpretation Comments Red Blood Count (test code = 789-8) 3.50 4.3-5.7 [facility] CenterBlood hemoglobin measurement (moles/volume)2019-12-05 02:30:00* Test Item Value Reference Range Interpretation Comments Hemoglobin (test code = 32282-0) 10.9 14.0-18.0 [facility] CenterAutomated blood hematocrit (volume fraction)2019-12-05 02:30:00* Test Item Value Reference Range Interpretation Comments Hematocrit (test code = 4544-3) 36.0 38.2-49.6 [facility] CenterAutomated erythrocyte mean corpuscular uqcpwt4579-32-68 02:30:00* Test Item Value Reference Range Interpretation Comments Mean Corpuscular Volume (test code = 787-2) 102.9 81-99 [facility] CenterAutomated erythrocyte mean corpuscular hemoglobin (mass per erythrocyte)2019-12-05 02:30:00* Test Item Value Reference Range Interpretation Comments Mean Corpuscular Hemoglobin (test code = 785-6) 31.1 28-32 [facility] CenterAutomated erythrocyte mean corpuscular hemoglobin concentration measurement (mass/volume)2019-12-05 02:30:00* Test Item Value Reference Range Interpretation Comments Mean Corpuscular Hemoglobin Concent (test code = 786-4) 30.3 31-35 [facility] CenterRDW KelKe-Voc9677-34-17 02:30:00* Test Item Value Reference Range Interpretation Comments Red Cell Distribution Width (test code = 49169-2) 15.8 11.7 -14.4 [facility] CenterAutomated blood platelet count (count/volume)2019-12-05 02:30:00* Test Item Value Reference Range Interpretation Comments Platelet Count (test code = 777-3) 197 140-360 [facility] CenterAutomated blood segmented neutrophil count as percentage of total pgmaxyawvc0694-86-61 02:30:00* Test Item Value Reference Range Interpretation Comments Neutrophils (%) (Auto) (test code = 61202-1) 81.9 38.7-80.0 [facility] CenterAutatrium health mountain islanded blood lymphocyte count as percentage ot total cvuxujyqqd1315-30-03 02:30:00* Test Item Value Reference Range Interpretation Comments Lymphocytes (%) (Auto) (test code = 736-9) 8.8 18.0-39.1 [facility] CenterAutomated blood monocyte count as percentage of total xxkawbnddt8121-34-74 02:30:00* Test Item Value Reference Range Interpretation Comments Monocytes (%) (Auto) (test code = 5905-5) 5.4 4.4-11.3 [facility] CenterAutomated blood eosinophil count as percentage of total chkercyxfn5879-38-57 02:30:00* Test Item Value Reference Range Interpretation Comments Eosinophils (%) (Auto) (test code = 713-8) 0.2 0.0-6.0 [facility] CenterAutomated blood basophil count as percentage of total zydkpwleqw1156-76-69 02:30:00* Test Item Value Reference Range Interpretation Comments Basophils (%) (Auto) (test code = 706-2) 0.2 0.0-1.0 [facility] CenterFluoroscopic procedure less than one hour wyyswyvp4100-17-15 02:30:00* Test Item Value Reference Range Interpretation Comments IM GRANULOCYTES % (test code = IM GRANULOCYTES %) 3.5 0.0- 1.0 [facility] CenterAutomated blood neutrophil count 2019-12-05 02:30:00* Test Item Value Reference Range Interpretation Comments Neutrophils # (Auto) (test code = 751-8) 6.6 2.1-6.9 [facility] CenterBlood lymphocytes count (number/volume) 2019-12-05 02:30:00* Test Item Value Reference Range Interpretation Comments Lymphocytes # (Auto) (test code = 40821-1) 0.7 1.0-3.2 [facility] CenterBlood monocytes automated count (number/volume)2019-12-05 02:30:00* Test Item Value Reference Range Interpretation Comments Monocytes # (Auto) (test code = 742-7) 0.4 0.2-0.8 [facility] CenterAutomated blood eosinophil count 2019-12-05 02:30:00* Test Item Value Reference Range Interpretation Comments Eosinophils # (Auto) (test code = 711-2) 0.0 0.0-0.4 [facility] CenterAutomated blood basophil count (count/volume)2019-12-05 02:30:00* Test Item Value Reference Range Interpretation Comments Basophils # (Auto) (test code = 704-7) 0.0 0.0-0.1 [facility] CenterFluoroscopic procedure less than one hour chakkybh0544-70-19 02:30:00* Test Item Value Reference Range Interpretation Comments Absolute Immature Granulocyte (auto (leatha t code = Absolute Immature Granulocyte (auto) 0.28 0-0.1 [facility] CenterFluoroscopic procedure less than one hour lftfevun5994-44-73 02:30:00* Test Item Value Reference Range Interpretation Comments Differential Total Cells Counted (test code = Jarocho tial Total Cells Counted) 100 [facility] blood neutrophils/100 leukocytes 2019-12-05 02:30:00* Test Item Value Reference Range Interpretation Comments Neutrophils % (Manual) (test code = 46814-8) 87 40-74 [facility] blood lymphocytes/100 leukocytes 2019-12-05 02:30:00* Test Item Value Reference Range Interpretation Comments Lymphocytes % (Manual) (test code = 737-7) 9 19-48 [facility] blood monocytes/100 leukocytes 2019-12-05 02:30:00* Test Item Value Reference Range Interpretation Comments Monocytes % (Manual) (test code = 744-3) 4 3.4-9.0 [facility] CenterBlood platelets count by estimate (number/volume)2019-12-05 02:30:00* Test Item Value Reference Range Interpretation Comments Platelet Estimate (test code = 28410-4) ADEQUATE [facility] CenterPlatelet kigtanrkzh2715-31-70 02:30:00* Test Item Value Reference Range Interpretation Comments Platelet Morphology Comment (test code = 43701-7) NORMAL [facility] CenterRBC vwqfnnjgwz5561-77-57 02:30:00* Test Item Value Reference Range Interpretation Comments Red Cell Morphology Comment (test code = 6742-1) NORMAL [facility] Hospitalerum or plasma sodium measurement (moles/volume)2019-12-05 02:30:00* Test Item Value Reference Range Interpretation Comments Sodium Level (test code = 2951-2) 147 136-145 [facility] Hospitalerum or plasma potassium measurement (moles/volume)2019-12-05 02:30:00* Test Item Value Reference Range Interpretation Comments Potassium Level (test code = 2823-3) 4.8 3.5-5.1 [facility] Hospitalerum or plasma chloride measurement (moles/volume)2019-12-05 02:30:00* Test Item Value Reference Range Interpretation Comments Chloride Level (test code = 2075-0) 111 98-107 [facility] Hospitalerum or plasma carbon dioxide, total measurement (moles/volume)2019-12-05 02:30:00* Test Item Value Reference Range Interpretation Comments Carbon Dioxide Level (test code = 2028-9) 27 22-29 [facility] Hospitalerum or plasma anion ajn4781-37-53 02:30:00* Test Item Value Reference Range Interpretation Comments Anion Gap (test code = 01421-4) 13.8 8-16 [facility] Hospitalerum or plasma urea nitrogen measurement (mass/volume)2019-12-05 02:30:00* Test Item Value Reference Range Interpretation Comments Blood Urea Nitrogen (test code = 3094-0) 39 7-26 [facility] Hospitalerum or plasma creatinine measurement (mass/volume)2019-12-05 02:30:00* Test Item Value Reference Range Interpretation Comments Creatinine (test code = 2160-0) 1.35 0.72-1.25 [facility] Hospitalerum or plasma urea nitrogen/creatinine mass dryyb4718-01-25 02:30:00* Test Item Value Reference Range Interpretation Comments BUN/Creatinine Ratio (test code = 3097-3) 29 6-25 [facility] CenterEstimated glomerular filtration rate (GFR) emabwdhawfoxz6287-24-18 02:30:00* Test Item Value Reference Range Interpretation Comments Estimat Glomerular Filtration Rate (test code = 247522051) 50 >60 Ranges were taken from the National Kidney Disease Education Program and the [place] [employer] literature.Reference ranges:60 or greater: Otyvvl76-65 ( for 3 consecutive months): Chronic kidney disease 15 or less: Kidney failureSt. David's Medical CenterGlucose fgynzjamaco9107-59-07 02:30:00* Test Item Value Reference Range Interpretation Comments Glucose Level (test code = NLV9902) 217 74-118 [facility] or plasma calcium measurement (mass/volume)2019-12-05 02:30:00* Test Item Value Reference Range Interpretation Comments Calcium Level (test code = 34729-4) 8.2 8.4-10.2 [facility] CenterCapillary blood glucose measurement by glucometer (mass/volume)2019-12-04 19:59:00* Test Item Value Reference Range Interpretation Comments Bedside Glucose (test code = 23786-6) 194 70-120 Meter ID: [id number]. David's Medical CenterEosinophils % (Manual)2019-12-04 07:38:00* Test Item Value Reference Range Interpretation Comments Eosinophils % (Manual) (test code = 714-6) 1 0-7 [facility] CenterTotal Qtemnpbae6543-43-37 06:01:00* Test Item Value Reference Range Interpretation Comments Total Bilirubin (test code = 1975-2) 0.4 0.2-1.2 [facility] CenterAspartate Amino Transf (AST/SGOT) 2019-12-04 06:01:00* Test Item Value Reference Range Interpretation Comments Aspartate Amino Transf (AST/SGOT) (test code = Aspartate Amino Transf (AST/SGOT)) 13 5-34 [facility] CenterAlanine Aminotransferase (ALT/SGPT) 2019-12-04 06:01:00* Test Item Value Reference Range Interpretation Comments Alanine Aminotransferase (ALT/SGPT) (test code = 1742-6) 12 0-55 [facility] CenterTotal Ipywawz8452-25-53 06:01:00* Test Item Value Reference Range Interpretation Comments Total Protein (test code = 2885-2) 5.2 6.5-8.[address] [facility] CenterAlbumin2020-01-16 06:01:00* Test Item Value Reference Range Interpretation Comments Albumin (test code = 1751-7) 2.3 3.5-5.[address] [facility] CenterGlobulin2020-01-16 06:01:00* Test Item Value Reference Range Interpretation Comments Globulin (test code = 06557-5) 2.9 2.3-3.5 [facility] CenterAlbumin/Globulin Rwuyu8909-21-95 06:01:00 * Test Item Value Reference Range Interpretation Comments Albumin/Globulin Ratio (test code = 1759-0) 0.8 0.8-2.0 [facility] CenterAlkaline Izbnyqwikda4204-40-06 06:01:00* Test Item Value Reference Range Interpretation Comments Alkaline Phosphatase (test code = 6768-6) 78 40-150 [facility] CenterManual blood eosinophil count as percentage of total hikggddagt0775-43-53 04:00:00* Test Item Value Reference Range Interpretation Comments Eosinophils % (Manual) (test code = 714-6) 1 0-7 [facility] Hospitalerum or plasma total bilirubin measurement (mass/volume)2019-12-04 04:00:00* Test Item Value Reference Range Interpretation Comments Total Bilirubin (test code = 1975-2) 0.4 0.2-1.2 [facility] CenterFluoroscopic procedure less than one hour cjvtdzff1522-85-35 04:00:00* Test Item Value Reference Range Interpretation Comments Aspartate Amino Transf (AST/SGOT) (test code = Aspartate Amino Transf (AST/SGOT)) 13 5-34 [facility] Hospitalerum or plasma alanine aminotransferase measurement (enzymatic activity/volume)2019-12-04 04:00:00* Test Item Value Reference Range Interpretation Comments Alanine Aminotransferase (ALT/SGPT) (test code = 1742-6) 12 0-55 [facility] Hospitalerum or plasma protein measurement (mass/volume)2019-12-04 04:00:00* Test Item Value Reference Range Interpretation Comments Total Protein (test code = 2885-2) 5.2 6.5-8.1 [facility] Hospitalerum or plasma albumin measurement (mass/volume)2019-12-04 04:00:00* Test Item Value Reference Range Interpretation Comments Albumin (test code = 1751-7) 2.3 3.5-5.0 [facility] CenterPlasma globulin measurement (mass/volume) 2019-12-04 04:00:00* Test Item Value Reference Range Interpretation Comments Globulin (test code = 53979-4) 2.9 2.3-3.5 [facility] Hospitalerum or plasma albumin/globulin mass esjjz0485-31-78 04:00:00* Test Item Value Reference Range Interpretation Comments Albumin/Globulin Ratio (test code = 1759-0) 0.8 0.8-2.0 [facility] Hospitalerum or plasma alkaline phosphatase measurement (enzymatic activity/volume)2019-12-04 04:00:00* Test Item Value Reference Range Interpretation Comments Alkaline Phosphatase (test code = 6768-6) 78 40-150 [facility] CenterABDOMEN-1VIEW (MELISSAB)2019-12-03 06:37:00 [place] [address] Patient Name: JANETT RIVERA MR #: [id number] : 1935 Age/Sex: 84/M Req #: [id number] Adm Physician: EDGARDO ALVARADO MD Ordered by: EDGARDO ALVARADO MD Report #: [id number] Location: [facility] Room/Bed: [place] [address] Procedure: [id number] DX/A BDOMEN-1VIEW (KUB) Exam Date: 12/03/19 Exam Time: 05 50 REPORT STATUS: Signed Exam : Abdominal film Clinical History: Dobbhoff tube missing metal tip Co mparison: KUB 12/02/2019, CT abdomen pelvis 11/30/2019 DISCUSSION: Frontal vi ew of the abdomen shows a nonobstructive bowel gas pattern with residual contr ast from prior CT abdomen and pelvis in the distal small bowel and most of the large bowel, which obscures the bony structures. A metallic density is not id entified. There are no dilated, air-filled loops of bowel. No acute bone ab normality. IMPRESSION: 1. Metallic density is not identified, however, exam is markedly limited due to residual contrast in the bowel from prior CT The staff physician below has personally reviewed this exam on the date of dictation. Signed by: Dr. Noé Buckley M.D. on 2019 6:42 AM Dictated By: NOÉ BUCKLEY MD 1 Transcribed By: BRENDA on 12/03/19641 COPY TO: EDGARDO ALVARADO MD Phosphorus Qbnfc0707-32-21 06:32:00* Test Item Value Reference Range Interpretation Comments Phosphorus Level (test code = UQH0932) 4.2 2.3-4.7 [facility] CenterMagnesium Bgsgm8410-68-54 06:32:00* Test Item Value Reference Range Interpretation Comments Magnesium Level (test code = 34019-3) 2.0 1.3-2.1 [facility] CenterPhosphorus rnzcxaoocgh9259-55-53 04:40:00 * Test Item Value Reference Range Interpretation Comments Phosphorus Level (test code = EFR4527) 4.2 2.3-4.7 [facility] Hospitalerum or plasma magnesium measurement (mass/volume)2019-12-03 04:40:00* Test Item Value Reference Range Interpretation Comments Magnesium Level (test code = 96211-5) 2.0 1.3-2.1 [facility] CenterABDOMEN-1VIEW (KUB)2019-12-02 18:35:00 [facility] [address] [place] [address] Patient Name: JANETT RIVERA MR #: [id number] : 1935 Age/Sex: 84/M Req #: [id number] Adm Physician: EDGARDO ALVARADO MD Ordered by: CHRIS ARGUETA MD Report #: [id number] Location: [facility] Room/Bed: [place] [address] Procedure: [id number] DX/AB POWELL (KUB) Exam Date: 12/02/19 Exam Time: 175 0 REPORT STATUS: Signed Exam: KUB. Clinical History: Dobbhoff tube missing metal tip. Comparison: N one Findings: Frontal view of the abdomen demonstrates a nonobstructive bow el gas pattern with moderate retained contrast material and stool. Sternal wir es and partially imaged cardiac device. Distended air-filled loops of sma ll bowel worrisome for early small bowel obstruction. No Dobbhoff tube me lana tip is seen. Impression: Distended air-filled loops of small bowel wo rrisome for early small bowel obstruction. No Dobbhoff tube metal tip is seen. Signed by: Dr. Juan David Capellan M.D. on 12/02/2019 6:37 PM Dicta sherie By: JUAN DAVID CAPELLAN MD, MD 36 COPY TO: MARIE ARGUETA MD CHEST SINGLE (PORTABLE)2019-12-02 17:41:00 [place] [address] Patient Name: JANETT RIVERA MR #: [id number] : 1935 Age/Sex: 84/M Req #: [id number] Adm Physician: EDGARDO ALVARADO MD Ordered by: GA SHEETS WOOD MILLING MACHINE HAND Report #: [id number] Location: [facility] Room/Bed: [address] Procedure: [id number] DX/C HEST SINGLE (PORTABLE) Exam Date: 12/02/19 Exam Time : 1715 REPORT STATUS: Signed EXA MINATION: CHEST SINGLE (PORTABLE) INDICATION: NG tube placement C OMPARISON: Chest radiograph 11/29/2019 FINDINGS: LINES/TUBES:Repor sherie history of NG tube placement. No NG tube is visualized in the ejaht-un-uod w. The tube is possibly coiled in the mouth or pharynx. Left chest AICD. EKG l hilary overlie the chest. LUNGS:Unchanged right lung consolidation. PLEU RA:No pleural effusion or pneumothorax. MEDIASTINUM:The cardiomediastinal s ilhouette appears normal in size and shape. BONES/SOFT TISSUES:No acute oss eous injury. Sternotomy wires unchanged. ABDOMEN:No free air under the diap hragm. IMPRESSION: NG tube not visualized,, suggesting that it may be coiled above the lnfbt-hj-yvav. Recommend replacement and repeat radiograph to confirm positioning. Unchanged right lung consolidation, better evaluated on prior radiograph. Signed by: Inna Torres MD on 12/02/2019 5:45 PM Dictated By: INNA TORRES MD 44 Transcribed By: BRENDA on 12/02/191744 COPY TO: GA [employer]ETS WO[employer] MILLING MACHINE HAND MODIFIED BA. EUAQGKF1634-93-39 15:15:00 [place] [address] Patient Name: JANETT RIVERA MR #: [id number] : 1935 Age/Sex: 84/M Req #: [id number] Adm Physician: EDGARDO ALVARADO MD Ordered by: Solange Segura WOOD MILLING MACHINE HAND Report #: [id number] Location: IMCU Room/Bed: IMCU 187-1 Procedure: [id number] DX/ MODIFIED BA. SWALLOW Exam Date: 11/27/19 Exam Time: 1000 REPORT STATUS: Signed PROCE DURE: X-RAY MODIFIED BARIUM SWALLOW COMPARISON: None. INDICATION: Asp iration Radiation Details: Fluoroscopy time: 2.4 minutes Cumulative dos e: 10.0 mGy DISCUSSION: Fluoroscopic examination was performed in conjuncti on with speech pathology during swallowing a variety of thin and thick liquid consistencies. Provided images demonstrate laryngeal penetration and silent as piration. CONCLUSION: Modified barium swallow demonstrating laryngeal p enetration and silent aspiration. Please refer to the speech pathology report for further details. Signed by: Inna Torres MD on 12/02/2019 3:16 PM Dictated By: INNA TORRES MD 15 Transcribed By: BRENDA on 12/02/191515 COPY TO: SOLANGE SEGURA N P CT ABDOMEN/PELVIS UK5244-63-71 04:14:00 [place] [address] Patient Name: JANETT RIVERA MR #: [id number] : 1935 Age/Sex: 84/M Req #: [id number] Adm Physician: EDGARDO ALVARADO MD Ordered by: NAZ PETE MD Report #: [id number] Location: ICU Room/Bed: ICU 194-1 Procedure: [id number] CT/CT A BDOMEN/PELVIS WO Exam Date: Exam Time: REPORT STATUS: Signed EXAMINATION: CT of the abdomen and pelvis without contrast. TECHNIQUE: Spiral CT images of the abdomen and pelvis were performed from the lung bases to the lesser trochanter s. No intravenous contrast was given per renal stone protocol. Coronal and s agittal reformatted images were obtained. COMPARISON: None. CLINICAL HISTORY:Stone protocol, BPH, measured prostate volume DISCUSSION: ABSE NCE OF INTRAVENOUS CONTRAST DECREASES SENSITIVITY FOR DETECTION OF FOCAL LESIO NS AND VASCULAR PATHOLOGY. ABDOMEN/PELVIS: LOWER THORAX: Trace darius ateral pleural effusions right larger than left. Reticular and groundglass [place] in the lower lobes likely reflects interstitial edema. Cardiomegaly wit h implantable cardiac device partially visualized. HEPATOBILIARY: Limited evaluation. No gross focal lesion. Gallbladder cannot be evaluated due to str eak artifact. SPLEEN: No splenomegaly. PANCREAS: Poorly evaluated seco ndary to extensive beam hardening artifact. ADRENALS: 1.3 cm left adrenal n odule. Attenuation characteristics are unreliable in light of extensive beam h ardening artifact. KIDNEYS/URETERS: No hydronephrosis. Presence of calculi cannot be accurately assessed. PELVIC ORGANS/BLADDER: Sarah catheter term inates within the urinary bladder with air in the nondependent portion. Diffus e wall thickening. Otherwise limited evaluation. Prostate measures 5.7 cm farrell sverse x 4.7 cm AP x 3.9 cm craniocaudal, volume estimated at 58 cc. LINDA TONEUM/RETROPERITONEUM: No free air. Cannot assess for presence of ascites. LYMPH NODES: Cannot assess. VESSELS: Cannot evaluate. Atherosclerotic calc ification of the abdominal aorta without aneurysmal dilatation. GI TRACT: No small bowel dilatation. Extensive large bowel diverticulosis. The large lencho wel cannot otherwise be evaluated due to contrast load. BONES AND SOFT TISS UES: Subcutaneous gas in the right lower quadrant likely related to insulin or other medication administration. Multilevel laminectomy defects of the lumbar spine. Degenerative disc changes and facet arthropathy predominantly at L5-S1. The right testis is in the upper scrotum-the lower inguinal canal presuma savage related to cremasteric reflex. IMPRESSION: Evaluation of the so lid organs and hollow viscera of the abdomen and pelvis is markedly limited du e to extensive beam hardening artifact from residual barium within the large b owel as a result of modified barium swallow performed 11/27/2019. Repeat examina tion should be considered after confirmation of passage of this contrast mater ial by abdominal and pelvic radiographs. Sarah catheter present within the urinary bladder. Wall thickening may relate to bladder outlet obstruction or c ystitis. Correlate with urinalysis. Prostate gland volume estimated at 58 c c as above. 1.3 cm left adrenal nodule, which is statistically likely to re present an adenoma in the absence of a known diagnosis of malignancy. Sig pedro pablo by: Dr. Wilda Santillan M.D. on 11/30/2019 4:25 AM Dictated By: WILDA SANTILLAN MD 4 Transcri bed By: BRENDA on 11/30/19424 COPY TO: NAZ PETE MD Blood Qaswmcf2914-97-63 11:09:00* Test Item Value Reference Range Interpretation Comments Blood Culture (test code = 33214402) NO GROWTH AFTER 5 DAYS, FINAL REPORT [facility] CenterBand Neutrophils %2019-11-29 08:38:00* Test Item Value Reference Range Interpretation Comments Band Neutrophils % (test code = 764-1) 6 [facility] CenterNucleated Red Blood Qnxwz4685-24-89 08:38:00* Test Item Value Reference Range Interpretation Comments Nucleated Red Blood Cells (test code = 35591-5) 1 [facility] CenterPoikilocytosis2020-01-11 08:38:00* Test Item Value Reference Range Interpretation Comments Poikilocytosis (test code = 779-9) SLIGHT [facility] CenterMacrocytosis2020-01-11 08:38:00* Test Item Value Reference Range Interpretation Comments Macrocytosis (test code = 738-5) SLIGHT [facility] CenterCHEST SINGLE (PORTABLE)2019-11-29 06:16:00 [facility] [address] [place] [address] Patient Name: JANETT RIVERA MR #: [id number] : 1935 Age/Sex: 84/M Req #: [id number] Adm Physician: EDGARDO ALVARADO MD Ordered by: LUCÍA SWEENEY MD Report #: [id number] Location: ICU Room/Bed: ICU [facility] Procedure: [id number] DX/SIVA ST SINGLE (PORTABLE) Exam Date: 11/29/19 Exam Time: 0530 REPORT STATUS: Signed [place]: Single AP view of the chest. COMPARISON: November 27, 2019 INDIC ATION: Shortness of breath DISCUSSION: See impression IMPRES MADISON: 1. Enteric tube with the distal tip visualized out view 2. Impro simon aeration with decreased right upper lung consolidation Signed by: Dr. Edward Santana M.D. on 11/29/2019 6:18 AM Dictated By: DOMINIC SANTANA MD 7 Transcribed By: BRENDA on 11/29/19617 COPY TO: LUCÍA SWEENEY MD Manual blood band neutrophils form/100 iugtxsfehs8775-32-24 02:30:00* Test Item Value Reference Range Interpretation Comments Band Neutrophils % (test code = 764-1) 6 [facility] CenterBlood nucleated erythrocytes count (number/volume)2019-11-29 02:30:00* Test Item Value Reference Range Interpretation Comments Nucleated Red Blood Cells (test code = 72481-1) 1 [facility] CenterBlood poikilocytosis detection by light mpnsicqzay3930-56-52 02:30:00* Test Item Value Reference Range Interpretation Comments Poikilocytosis (test code = 779-9) SLIGHT [facility] CenterBlood macrocytes detection by light ccfrvotvoj5705-69-09 02:30:00* Test Item Value Reference Range Interpretation Comments Macrocytosis (test code = 738-5) SLIGHT [facility] CenterIR WVLQSZH9181-21-47 15:49:00 [facility] [address] [place] [address] Patient Name: JANETT RIVERA MR #: [id number] : 1935 Age/Sex: 84/M Req #: [id number] Adm Physician: EDGARDO ALVARADO MD Ordered by: LUCÍA SWEENEY MD Report #: [id number] Location: ICU Room/Bed: ICU [facility] Procedure: [id number] DX/IR CONSULT Exam Date: Exam Time: REPORT STATUS: Signed PROCEDURE: Nasogastric feeding tube placement Procedural Personnel Attending physician(s): Inna Torres MD Fellow physician(s): None Resident physician(s): None Advanced practice provider(s): None Pre-procedure diagnosis: Aspiration Post-procedure bethel gnosis: Same Indication: Nutritional support Additional clinical history: No ne Complications: No immediate complications. IMPRESSION: Image g uided placement of Dobhoff type feeding tube. Contrast injection confirms p ositioning in the stomach lumen. Plan: Tube is ready for immediate use. PROCEDURE SUMMARY: - Nasogastric feeding tube placement under fluoroscopic guidance - Additional procedure(s): None PROCEDURE DETAILS: Anesthesia/sedation Level of anesthesia/sedation: No sedation Nasogastric feeding tube place ment A 5Fr Kumpe catheter was passed through the nose and into the stomach und er fluoroscopic guidance. The catheter was exchanged over a wire for a Dobhoff feeding tube. Contrast injection confirms positioning in the stomach. Co ntrast Contrast agent: Gastrografin Contrast volume (mL): 5 Radiation D ose Fluoroscopy time (minutes): 5.6 Reference air kerma (mGy): 58.7 Additional Details Additional description of procedure: None Equipment detai ls: None Specimens removed: None Estimated blood loss (mL): Less than 10 Attestation Signer name: Inna Torres MD I attest that I was present for the entire procedure. I reviewed the stored images and agree with the report as written. Signed by: Inna Torres MD on 11/28/2019 3:52 PM Dictated By: INNA TORRES MD 51 Tra nscribed By: BRENDA on 11/28/191551 COPY TO: LUCÍA SWEENEY MD NASO GASTRIC TUBE PLACE W/BHDB3950-56-24 15:49:00 [place] [address] Patient Name: JANETT RIVERA MR #: [id number] : 1935 Age/Sex: 84/M Req #: [id number] Adm Physician: EDGARDO ALVARADO MD Ordered by: LUCÍA SWEENEY MD Report #: [id number] Location: ICU Room/Bed: ICU [facility] Procedure: IR/ALLIE O GASTRIC TUBE PLACE W/FLUO Exam Date: 11/28/19 Exam Time: 1500 REPORT STATUS: Signed PROCEDURE: Nasogastric feeding tube placement Procedural Personnel Atte nding physician(s): Inna Torres MD Fellow physician(s): None Resident physic eli(s): None Advanced practice provider(s): None Pre-procedure diagnosis: Aspiration Post-procedure diagnosis: Same Indication: Nutritional support Additional clinical history: None Complications: No immediate complication s. IMPRESSION: Image guided placement of Dobhoff type feeding tube. Contrast injection confirms positioning in the stomach lumen. Plan: T ube is ready for immediate use. PROCEDURE SUMMARY: - Nasogastric feeding tube placemen t under fluoroscopic guidance - Additional procedure(s): None PROCEDURE D ETAILS: Anesthesia/sedation Level of anesthesia/sedation: No sedation Nasogastric feeding tube placement A 5Fr Kumpe catheter was passed through t he nose and into the stomach under fluoroscopic guidance. The catheter was exc hanged over a wire for a Dobhoff feeding tube. Contrast injection confirms pos itioning in the stomach. Contrast Contrast agent: Gastrografin Contrast volume (mL): 5 Radiation Dose Fluoroscopy time (minutes): 5.6 Refere nce air kerma (mGy): 58.7 Additional Details Additional description of p rocedure: None Equipment details: None Specimens removed: None Estimated b lood loss (mL): Less than 10 Attestation Signer name: Inna Torres MD I attest that I was present for the entire procedure. I reviewed the stored i mages and agree with the report as written. Signed by: Inna Torres MD on 08/2020 3:52 PM Dictated By: INNA TORRES MD 51 Transcribed By: BRENDA on 11/28/191551 COPY TO: LUCÍA SWEENEY MD CHEST SINGLE (PORTABLE)2019-11-27 06:35:[address] [address] Patient Name: JANETT RIVERA MR #: [id number] : 1935 Age/Sex: 84/M Req #: [id number] Adm Physician: EDGARDO ALVARADO MD Ordered by: LUCÍA SWEENEY MD Report #: [id number] Location: ICU Room/Bed: ICU [facility] Procedure: [id number] DX/SIVA ST SINGLE (PORTABLE) Exam Date: Exam Time: REPORT STATUS: Signed Examination: Sing le AP view of the chest. COMPARISON: 11/26/2019 INDICATION: Aspiration p neumonia DISCUSSION: See impression IMPRESSION: Mild i nterval improvement in right upper lobe consolidation relative to 11/26/2019. No new consolidations. Unchanged cardiomegaly and pulmonary venous congestion. Signed by: Dr. Wilda Santillan M.D. on 11/27/2019 6:37 AM Dictated By: WILDA SANTILLAN MD 6 Transcribed By: BRENDA on 11/27/19636 COPY TO: LUCÍA SWEEENY MD Arterial Blood [id number] 04:56:00* Test Item Value Reference Range Interpretation Comments Arterial Blood pH (test code = 2744-1) 7.46 7.31-7.[address] [facility] CenterArterial Blood Partial Pressure CO2 2019-11-26 04:56:00* Test Item Value Reference Range Interpretation Comments Arterial Blood Partial Pressure CO2 (test code = 2019-06) 35 41-[address] [facility] CenterArterial Blood Partial Pressure O2 2019-11-26 04:56:00* Test Item Value Reference Range Interpretation Comments Arterial Blood Partial Pressure O2 (test code = 2019-06) 33 80-105 LL Results called/hand delivered to BAO ESPAÑA at 0440 on 11/26/19 [address] Be ORTA.[facility] CenterArterial Blood VEY73804-33-07 04:56:00* Test Item Value Reference Range Interpretation Comments Arterial Blood HCO3 (test code = 1960-4) 25 23-28 [facility] CenterArterial Blood Base Iemdhx8681-67-39 04:56:00* Test Item Value Reference Range Interpretation Comments Arterial Blood Base Excess (test code = 1925-7) 1.0 -2-3 [facility] CenterArterial Blood Oxygen Saturation 2019-11-26 04:56:00* Test Item Value Reference Range Interpretation Comments Arterial Blood Oxygen Saturation (test code = 2708-6) 69.0 95-[address] [facility] CenterFiO22020-01-08 04:56:00* Test Item Value Reference Range Interpretation Comments FiO2 (test code = FiO2) 40 Pt on 5LNC blood drawn from left radial artery mixed venous blood.[facility] CenterCHES SINGLE (PORTABLE)2019-11-26 04:55:00 [facility] [address] [place] [address] Patient Name: JANETT RIVERA MR #: [id number] : 1935 Age/Sex: 84/M Req #: [id number] Adm Physician: EDGARDO ALVARADO MD Ordered by: GARETT SHRESTHA WOOD MILLING MACHINE HAND Report #: [id number] Location: MED/SURG3 Room/Bed: [facility] Procedure: [id number] DX/ELVIN EST SINGLE (PORTABLE) Exam Date: 11/26/19 Exam Time: 0430 REPORT STATUS: Signed Exam ination: Single AP view of the chest. COMPARISON: 11/25/2019 INDICATION: Dyspnea DISCUSSION: See impression IMPRESSION: Right upper lobe pneumonia similar in appearance to 11/25/2020 accounting for di fferences in technique. Unchanged cardiomegaly with slight interval improve ment in pulmonary venous congestion relative to 11/25/2019. No new consolidation s. Signed by: Dr. Wilda Santillan M.D. on 11/26/2019 4:59 AM Dictated B y: WILDA SANTILLAN MD 8 Transcribed By: BRENDA on 11/26/19458 COPY TO: GARETT SHRESTHA NP Arterial blood pH qtcfxvyylex3288-39-58 03:30:00* Test Item Value Reference Range Interpretation Comments Arterial Blood pH (test code = 2744-1) 7.46 7.31-7.41 [facility] CenterpCO2 HbiW5174-53-68 03:30:00* Test Item Value Reference Range Interpretation Comments Arterial Blood Partial Pressure CO2 (test code = 2018-8) 35 41-51 [facility] CenterpCO2 IozK0774-08-21 03:30:00* Test Item Value Reference Range Interpretation Comments Arterial Blood Partial Pressure O2 (test code = 2018-8) 33 80-105 Results called/hand delivered to BAO ESPAÑA at 0440 on 11/26/19 [address] Be ORTA.[facility] CenterArterial blood bicarbonate measurement (moles/volume)2019-11-26 03:30:00* Test Item Value Reference Range Interpretation Comments Arterial Blood HCO3 (test code = 1960-4) 25 23-28 [facility] CenterArterial blood base excess by calculation 2019-11-26 03:30:00* Test Item Value Reference Range Interpretation Comments Arterial Blood Base Excess (test code = 1925-7) 1.0 -2-3 [facility] CenterArterial blood oxygen saturation tckbaeeverl2006-27-98 03:30:00* Test Item Value Reference Range Interpretation Comments Arterial Blood Oxygen Saturation (test code = 2708-6) 69.0 95-98 [facility] CenterFluoroscopic procedure less than one hour objtaqak4782-84-36 03:30:00* Test Item Value Reference Range Interpretation Comments FiO2 (test code = FiO2) 40 Pt on 5LNC blood drawn from left radial artery mixed venous blood.[facility] CenterMODIFIED BA. OPVHKLE5451-28-24 13:46:00 [facility] [address] [place] [address] Patient Name: JANETT RIVERA MR #: [id number] : 1935 Age/Sex: 84/M Req #: [id number] Adm Physician: EDGARDO ALVARADO MD Ordered by: LOUISE FERRERA DO Report #: [id number] Location: MED/SURG3 Room/Bed: [facility] Procedure: [id number] D X/MODIFIED BA. SWALLOW Exam Date: 11/25/19 Exam Time : 922 REPORT STATUS: Signed Mod ified barium swallow Fluoroscopy Time: 1 min, 43 seconds. Reference Air K court (Ka, r): 3.73 mGy. Technique/findings: Various consistencies of b arium was provided orally in conjunction with the speech therapy department. P rovided images demonstrate episodes of subglottic tracheal aspiration. Im pression: As above, please refer to speech pathology report for further det ails. Signed by: Dr. Vick Patel MD on 11/25/2019 1:48 PM Dictated B y: VICK PATEL MD 1348 Transcribed By: BRENDA on 11/25/19 1348 COPY TO: LOUISE FERRERA DO CHEST 2 LLSXE9558-26-63 06:53:00 [place] [address] Patient Name: JANETT RIVERA MR #: [id number] : 1935 Age/Sex: 84/M Req #: [id number] Adm Physician: EDGARDO ALVARADO MD Ordered by: LUCÍA SWEENEY MD Report #: [id number] Location: MED/SURG3 Room/Bed: [facility] Procedure: [id number] DX/SIVA ST 2 VIEWS Exam Date: 11/25/19 Exam Time: 624 REPORT STATUS: Signed EXAMINATION: PA and lateral views of the chest. COMPARISON: 11/24/2019 CLINICAL HIST ORY: CHF DISCUSSION: Right upper lobe consolidation has worsened in the interim. Patchy perihilar opacities elsewhere within the lungs. No ple ural effusion or pneumothorax. Stable cardiomediastinal contour with postsurgi sonny changes of the mediastinum and implantable cardiac device. Congestion of t he central pulmonary venous structures without overt alveolar edema. No a cute osseous abnormality IMPRESSION: Right upper lobe pneumonia, more co nspicuous relative to 11/24/2019. Background cardiomegaly and pulmonary venou s congestion without significant interval change. As before, follow-up ch est radiograph in 6-8 weeks is suggested to document resolution. Signed by: Dr. Wilda Santillan M.D. on 11/25/2019 6:55 AM Dictated By: WILDA SANTILLAN MD 4 T ranscribed By: BRENDA on 11/25/19654 COPY TO: LUCÍA SWEENEY MD Thyroid Stimulating Hormone (TSH)2019-11-25 04:45:00* Test Item Value Reference Range Interpretation Comments Thyroid Stimulating Hormone (TSH) (test code = 21192-4) 0.544 0.350-4.940 [facility] CenterTriglycerides Kkmho4481-25-51 04:41:00* Test Item Value Reference Range Interpretation Comments Triglycerides Level (test code = 2571-8) 58 0-149 [facility] CenterCholesterol Gzlve5570-86-08 04:41:00* Test Item Value Reference Range Interpretation Comments Cholesterol Level (test code = 2093-3) 92 0-199 Less than 200 mg/dL Low Kxcj280 - 239 mg/dL Borderline Uduf988 m g/dl and greater High Risk [facility] CenterLDL Vjxbvldgjgi0787-83-10 04:41:00* Test Item Value Reference Range Interpretation Comments LDL Cholesterol (test code = 2089-1) 45 60-[address] [facility] CenterHDL Orihocfacvu6060-27-18 04:41:00* Test Item Value Reference Range Interpretation Comments HDL Cholesterol (test code = 2085-9) 35 40-[address] [facility] CenterCholesterol/HDL Jpbbc3581-03-53 04:41:00 * Test Item Value Reference Range Interpretation Comments Cholesterol/HDL Ratio (test code = 9830-1) 2.6 3.9-4.[address] [facility] CenterCreatine Kinase PH0002-35-38 04:12:00* Test Item Value Reference Range Interpretation Comments Creatine Kinase MB (test code = 82908-1) 1.20 0-5.0 [facility] CenterTroponin S3150-06-43 04:12:00* Test Item Value Reference Range Interpretation Comments Troponin I (test code = GEG6735) 0.125 0-0.300 [facility] CenterHemoglobin A1c Hsretvw9892-34-40 04:07:00 * Test Item Value Reference Range Interpretation Comments Hemoglobin A1c Percent (test code = Hemoglobin A1c Percent) 6.6 4.0-7.0 [facility] CenterCreatine Cktikv4712-18-66 04:07:00* Test Item Value Reference Range Interpretation Comments Creatine Kinase (test code = 2157-6) 350 30-[address] [facility] CenterFluoroscopic procedure less than one hour kwormfms4257-13-12 02:40:00* Test Item Value Reference Range Interpretation Comments Hemoglobin A1c Percent (test code = Hemoglobin A1c Percent) 6.6 4.0-7.0 [facility] triglyceride measurement (mass/volume)2019-11-25 02:40:00* Test Item Value Reference Range Interpretation Comments Triglycerides Level (test code = 2571-8) 58 0-149 [facility] Hospitalerum or plasma cholesterol measurement (mass/volume)2019-11-25 02:40:00* Test Item Value Reference Range Interpretation Comments Cholesterol Level (test code = 2093-3) 92 0-199 Less than 200 mg/dL Low Dvqa854 - 239 mg/dL Borderline Oyjr285 m g/dl and greater High Risk [facility] Hospitalerum or plasma cholesterol in LDL measurement (mass/volume) 2019-11-25 02:40:00* Test Item Value Reference Range Interpretation Comments LDL Cholesterol (test code = 2089-1) 45 60-130 [facility] Hospitalerum or plasma cholesterol in HDL measurement (mass/volume)2019-11-25 02:40:00* Test Item Value Reference Range Interpretation Comments HDL Cholesterol (test code = 2085-9) 35 40-60 [facility] Hospitalerum or plasma total cholesterol/cholesterol in HDL mass vmhpz7329-44-72 02:40:00* Test Item Value Reference Range Interpretation Comments Cholesterol/HDL Ratio (test code = 9830-1) 2.6 3.9-4.7 [facility] Hospitalerum or plasma creatine kinase measurement (enzymatic activity/volume)2019-11-25 02:40:00* Test Item Value Reference Range Interpretation Comments Creatine Kinase (test code = 2157-6) 350 30-200 [facility] Hospitalerum or plasma creatine kinase MB measurement (mass/volume)2019-11-25 02:40:00* Test Item Value Reference Range Interpretation Comments Creatine Kinase MB (test code = 85086-4) 1.20 0-5.0 [facility] CenterTroponin I measurement by highly sensitive enzyme ynxtypiwplo3663-04-07 02:40:00* Test Item Value Reference Range Interpretation Comments Troponin I (test code = 94885-9) 0.125 0-0.300 [facility] Hospitalerum or plasma thyrotropin measurement by detection limit <= 0.005 miu/l (units/volume)2019-11-25 02:40:00* Test Item Value Reference Range Interpretation Comments Thyroid Stimulating Hormone (TSH) (test code = 22587-7) 0.544 0.350-4.940 [facility] CenterInfluenza Virus Types A,B Antigen 2019-11-24 17:17:00* Test Item Value Reference Range Interpretation Comments Influenza Virus Types A,B Antigen (test code = 51692-7) NEGATIVE NEGATIVE [facility] CenterInfluenza virus A and B antigen identification by rswwrunpwkgvjoqkam4006-29-22 15:35:00* Test Item Value Reference Range Interpretation Comments Influenza Virus Types A,B Antigen (test code = 87664-3) NEGATIVE NEGATIVE [facility] CenterUrine ZXE6349-18-07 12:05:00* Test Item Value Reference Range Interpretation Comments Urine WBC (test code = 5821-4) 0-5 0-5 [facility] CenterUrine SAH3363-89-04 12:05:00* Test Item Value Reference Range Interpretation Comments Urine RBC (test code = 28585-0) 0-5 0-5 [facility] CenterUrine Sgljnnhd5929-52-14 12:05:00* Test Item Value Reference Range Interpretation Comments Urine Bacteria (test code = 70916-4) RARE NONE [facility] CenterUrine Epithelial Cidrf3388-25-44 12:05:00 * Test Item Value Reference Range Interpretation Comments Urine Epithelial Cells (test code = 52216-8) FEW NONE [facility] CenterUrine Giapm3994-71-27 11:45:00* Test Item Value Reference Range Interpretation Comments Urine Color (test code = 5778-6) YELLOW YELLOW [facility] CenterUrine Vtstaue1822-41-40 11:45:00* Test Item Value Reference Range Interpretation Comments Urine Clarity (test code = 56727-1) CLEAR CLEAR [facility] CenterUrine Specific Tggjksv5645-24-09 11:45:00 * Test Item Value Reference Range Interpretation Comments Urine Specific [place] (test code = 5811-5) 1.015 1.010-1.[address] [facility] CenterUrine uN7377-19-47 11:45:00* Test Item Value Reference Range Interpretation Comments Urine pH (test code = 10782-0) 6 5-7 [facility] Leukocyte Csurgcrq6803-58-28 11:45:00* Test Item Value Reference Range Interpretation Comments Urine Leukocyte Esterase (test code = 08762-7) NEGATIVE NEGATIV E [facility] CenterUrine Jrkxveh1072-30-46 11:45:00* Test Item Value Reference Range Interpretation Comments Urine Nitrite (test code = 72736-4) NEGATIVE NEGATIVE [facility] Gfkcits5869-02-36 11:45:00* Test Item Value Reference Range Interpretation Comments Urine Protein (test code = 67822-1) NEGATIVE NEGATIVE [facility] Glucose (UA)2019-11-24 11:45:00* Test Item Value Reference Range Interpretation Comments Urine Glucose (UA) (test code = 63354-2) NEGATIVE NEGATIVE [facility] Cumbiju6565-64-62 11:45:00* Test Item Value Reference Range Interpretation Comments Urine Ketones (test code = 06706-5) NEGATIVE NEGATIVE [facility] Obozmkquppkp1590-04-97 11:45:00* Test Item Value Reference Range Interpretation Comments Urine Urobilinogen (test code = 40393-3) 0.2 0.2-1 [facility] CenterUrine Scleraxxa9409-11-20 11:45:00* Test Item Value Reference Range Interpretation Comments Urine Bilirubin (test code = 1977-8) NEGATIVE NEGATIVE [facility] Gvcmf2475-59-85 11:45:00* Test Item Value Reference Range Interpretation Comments Urine Blood (test code = 16709-7) NEGATIVE NEGATIVE [facility] CenterLactic Acid Licsa6787-97-87 11:31:00* Test Item Value Reference Range Interpretation Comments Lactic Acid Level (test code = Lactic Acid Level) 1.2 0.5- 2.0 [facility] CenterFluoroscopic procedure less than one hour whwiuilz6009-10-24 10:00:00* Test Item Value Reference Range Interpretation Comments Lactic Acid Level (test code = Lactic Acid Level) 1.2 0.5- 2.0 [facility] CenterBlood vboflmt4258-25-43 10:00:00* Test Item Value Reference Range Interpretation Comments Blood Culture (test code = 36460656) NO GROWTH AFTER 5 DAYS, FINAL REPORT [facility] CenterCHEST SINGLE (PORTABLE)2019-11-24 09:27:00 [facility] [address] [place] [address] Patient Name: JANETT RIVERA MR #: [id number] : 1935 Age/Sex: 84/M Req #: [id number] Adm Physician: Ordered by: LOUISE FERRERA DO Report #: [id number] Location: ER Room/Bed: Procedure: [id number] DX /CHEST SINGLE (PORTABLE) Exam Date: 11/24/19 Exam Ti me: 0808 REPORT STATUS: Signed E XAMINATION: CHEST SINGLE (PORTABLE) INDICATION: Shortness of breath COMPARISON: None FINDINGS: LINES/TUBES:Left chest AICD. EKG le ads overlie the chest. LUNGS:The lungs are moderately inflated. Airspace op acity at the right middle lobe and at the lingula. PLEURA:No pleural effu [place] or pneumothorax. MEDIASTINUM:The cardiomediastinal silhouette appears normal in size and shape. Atherosclerotic calcifications of the thoracic aorta . BONES/SOFT TISSUES:No acute osseous injury. Sternotomy wires intact. ABDOMEN:No free air under the diaphragm. IMPRESSION: Airspace opacit ies involving the right middle lobe and lingula, concerning for multifocal asp iration and/or pneumonia. RECOMMENDATIONS: PA and lateral chest radiograp h in 6-8 weeks to assess for resolution. Signed by: Inna Torres MD on 020 9:29 AM Dictated By: INNA TORRES MD 8 Transcribed By: BRENDA on 11/24/19928 COPY TO: LOUISE FERRERA DO Urine color okfpxzuoujump4106-54-94 09:17:00* Test Item Value Reference Range Interpretation Comments Urine Color (test code = 5778-6) YELLOW YELLOW [facility] CenterUrine zijjhwz4357-55-33 09:17:00* Test Item Value Reference Range Interpretation Comments Urine Clarity (test code = 23178-0) CLEAR CLEAR [facility] Hospitalpecific gravity of Urine by Test strip 2019-11-24 09:17:00* Test Item Value Reference Range Interpretation Comments Urine Specific [place] (test code = 5811-5) 1.015 1.010-1.[address] [facility] CenterUrine pH measurement by automated test zbkvg3772-83-31 09:17:00* Test Item Value Reference Range Interpretation Comments Urine pH (test code = 16804-3) 6 5-7 [facility] CenterUrine leukocyte esterase detection by automated test cqodp5242-78-78 09:17:00* Test Item Value Reference Range Interpretation Comments Urine Leukocyte Esterase (test code = 88068-1) NEGATIVE NEGATIV E [facility] CenterUrine nitrite detection by automated test qhivg1287-40-24 09:17:00* Test Item Value Reference Range Interpretation Comments Urine Nitrite (test code = 84990-2) NEGATIVE NEGATIVE [facility] CenterUrine protein detection by automated test ekdjx0891-71-84 09:17:00* Test Item Value Reference Range Interpretation Comments Urine Protein (test code = 68379-7) NEGATIVE NEGATIVE [facility] CenterUrine glucose detection by automated test bojnd0983-48-61 09:17:00* Test Item Value Reference Range Interpretation Comments Urine Glucose (UA) (test code = 29914-0) NEGATIVE NEGATIVE [facility] CenterUrine ketones detection by automated test fbimb1960-34-13 09:17:00* Test Item Value Reference Range Interpretation Comments Urine Ketones (test code = 03799-3) NEGATIVE NEGATIVE [facility] CenterUrine urobilinogen measurement by test strip (mass/volume)2019-11-24 09:17:00* Test Item Value Reference Range Interpretation Comments Urine Urobilinogen (test code = 10553-2) 0.2 0.2-1 [facility] CenterUrine total bilirubin splziknan1109-53-97 09:17:00* Test Item Value Reference Range Interpretation Comments Urine Bilirubin (test code = 1977-8) NEGATIVE NEGATIVE [facility] CenterUrine erythrocytes dobvchhpf7037-44-88 09:17:00* Test Item Value Reference Range Interpretation Comments Urine Blood (test code = 82916-2) NEGATIVE NEGATIVE [facility] CenterAutomated urine sediment leukocyte count by microscopy (number/high power field)2019-11-24 09:17:00* Test Item Value Reference Range Interpretation Comments Urine WBC (test code = 5821-4) 0-5 0-5 [facility] CenterErythrocytes detection in urine sediment by light lqstarehqf4750-20-50 09:17:00* Test Item Value Reference Range Interpretation Comments Urine RBC (test code = 74817-7) 0-5 0-5 [facility] CenterBacteria detection in urine sediment by light csuzacsefa6175-01-12 09:17:00* Test Item Value Reference Range Interpretation Comments Urine Bacteria (test code = 51484-9) RARE NONE [facility] CenterEpithelial cells detection in urine sediment by light nmjajcvdtm2015-10-71 09:17:00* Test Item Value Reference Range Interpretation Comments Urine Epithelial Cells (test code = 71398-6) FEW NONE [facility] CenterB-Type Natriuretic Yyqlgaw7246-78-53 08:30:00* Test Item Value Reference Range Interpretation Comments B-Type Natriuretic Peptide (test code = 70303-7) 1181.4 0-[address] [facility] CenterBNP Udr-cHjg3636-10-06 06:54:00* Test Item Value Reference Range Interpretation Comments B-Type Natriuretic Peptide (test code = 89333-0) 1181.4 0-100 [facility] 18:23:00* Test Item Value Reference Range Interpretation Comments GLUBED (test code = GLUBED) 135 MG/DL 70-110 H Performed by certified plug saw operator at [facility] - DUP VEIN UNI/XHO8559-21-82 15:30:00 Name: JANETT RIVERA [facility] : 1935 Age/S: 84 / M [address] [place] [address] Blvd Unit #: [id number] Loc: [place] [address] Phys: Oz Schaeffer MD Acct: [id number] Dis Date: Status: ADM IN PHONE #: [phone] Exam Date: 10/08/2019 1456 FAX #: [phone] Reason: R/O DVT of left arm EXAMS: CPT CODE: [id number] [employer] VEIN UNI/LTD 99064 PROCEDURE: UNILATERAL UPPER EXTREMITY VENOUS ULTRASOUND INDICATION: Left upper extremity edema. COMPARISON: CXR 10/02/2019 TECHNIQUE: Sonographic evaluation of the left upper extremity veins was performed using high resolution B-mode imaging, pulse and color Doppler imaging. FINDINGS: The internal jugular, subclavian, axillary, brachial, radial and ulnar veins are patent. The basilic vein is patent. The cephalic vein is not visualized. Subjectively dampened venous waveforms notably in the internal jugular and subclavian veins. IMPRESSION: 1. Negative for deep venous thrombosis. 2. Subjectively dampened venous waveforms. Central venous stenosis is not excluded. SL: [id number] at 1530 Reported and signed by: Aleksander Khalil M.D. CC: Oz Schaeffer MD Technologist: Maddison Perez RDMS(OB)(AB) Trnscb Date/Time: 10/08/2019 (1530) tAraceli FAJARDO Orig Print D/T: S: 10/08/2019 (8443) Probe: PAGE 1 Signed Report PVSHNC6556-12-77 13:07:00* Test Item Value Reference Range Interpretation Comments GLUBED (test code = GLUBED) 261 MG/DL 70-110 H Performed by certified plug saw operator at [facility] JSKJWQ1624-18-08 09:26:00* Test Item Value Reference Range Interpretation Comments GLUBED (test code = GLUBED) 142 MG/DL 70-110 H Performed by certified plug saw operator at [facility] ETPRIK8827-42-38 20:32:00* Test Item Value Reference Range Interpretation Comments GLUBED (test code = GLUBED) 148 MG/DL 70-110 H Performed by certified plug saw operator at [facility] QBBKRS5326-01-40 17:21:00* Test Item Value Reference Range Interpretation Comments GLUBED (test code = GLUBED) 118 MG/DL 70-110 H Performed by certified plug saw operator at [facility] FBCGWY0393-78-18 12:51:00* Test Item Value Reference Range Interpretation Comments GLUBED (test code = GLUBED) 167 MG/DL 70-110 H Performed by certified plug saw operator at [facility] GKTGUN4002-24-22 09:44:00* Test Item Value Reference Range Interpretation Comments GLUBED (test code = GLUBED) 113 MG/DL 70-110 H Performed by certified plug saw operator at [facility] IPXCYR8696-62-62 21:07:00* Test Item Value Reference Range Interpretation Comments GLUBED (test code = GLUBED) 106 MG/DL 70-110 N Performed by certified plug saw operator at [facility] RGFTLE2009-42-04 17:40:00* Test Item Value Reference Range Interpretation Comments GLUBED (test code = GLUBED) 146 MG/DL 70-110 H Performed by certified plug saw operator at [facility] OKCSWJ3930-38-93 17:40:00* Test Item Value Reference Range Interpretation Comments GLUBED (test code = GLUBED) 209 MG/DL 70-110 H Performed by certified plug saw operator at [facility] FRAQOL3874-46-20 08:36:00* Test Item Value Reference Range Interpretation Comments GLUBED (test code = GLUBED) 138 MG/DL 70-110 H Performed by certified plug saw operator at [facility] RIEGZT7433-68-89 20:01:00* Test Item Value Reference Range Interpretation Comments GLUBED (test code = GLUBED) 245 MG/DL 70-110 H Performed by certified plug saw operator at [facility] GBXVNV6869-59-12 17:54:00* Test Item Value Reference Range Interpretation Comments GLUBED (test code = GLUBED) 213 MG/DL 70-110 H Performed by certified plug saw operator at [facility] SFRXOW3373-89-11 13:20:00* Test Item Value Reference Range Interpretation Comments GLUBED (test code = GLUBED) 179 MG/DL 70-110 H Performed by certified plug saw operator at [facility] EILCGE3800-03-65 09:06:00* Test Item Value Reference Range Interpretation Comments GLUBED (test code = GLUBED) 174 MG/DL 70-110 H Performed by certified plug saw operator at [facility] BASIC METABOLIC OOAYI4711-30-33 07:39:00* Test Item Value Reference Range Interpretation Comments SODIUM (test code = NA) 141 mEq/L 134-147 N POTASSIUM (test code = K) 3.6 mEq/L 3.4-5.0 N CHLORIDE (test code = CL) 113 mEq/L 100-108 H CARBON DIOXIDE (test code = CO2) 22 mEq/L 21-33 N ANION GAP (test code = GAP) 10 0-20 N GLUCOSE (test code = GLU) 151 mg/dL 70-110 H BLOOD UREA NITROGEN (test code = BUN) 23 mg/dL 7-18 H GLOMERULAR FILTRATION RATE (test code = GFR) 52.6 70-80 L Units of measure = ml/min/1.73 m2 CREATININE (test code = CREAT) 1.3 mg/dL 0.6-1.3 N CALCIUM (test code = CA) 8.5 mg/dL 8.0-10.5 N CBC W/AUTO ZTLU5325-78-69 07:17:00* Test Item Value Reference Range Interpretation Comments WHITE BLOOD CELL (test code = WBC) 9.19 x10 3/uL 4.5-11.0 N RED BLOOD CELL (test code = RBC) 3.51 x10 6/uL 4.00-5.60 L HEMOGLOBIN (test code = HGB) 11.2 g/dL 12.5-16.9 L HEMATOCRIT (test code = HCT) 35.0 % 37.5-50.7 L MEAN CELL VOLUME (test code = MCV) 99.7 fL 81.0-99.0 H MEAN CELL HGB (test code = MCH) 31.9 pg 27.0-33.0 N MEAN CELL HGB CONCETRATION (test code = MCHC) 32.0 g/dL 33.0-37. 0 L RED CELL DISTRIBUTION WIDTH CV (test code = RDW) 14.3 % 11.5- 14.5 N RED CELL DISTRIBUTION WIDTH SD (test code = RDW-SD) 52.0 fL 37 .0-54.0 N PLATELET COUNT (test code = PLT) 246 x10 3/uL 150-400 N MEAN PLATELET VOLUME (test code = MPV) 11.2 fL 7.0-9.0 H NEUTROPHIL % (test code = NT%) 71.4 % 56.0-77.0 N IMMATURE GRANULOCYTE % (test code = IG%) 1.6 % 0.0-2.0 N LYMPHOCYTE % (test code = LY%) 10.7 % 14.0-32.0 L MONOCYTE % (test code = MO%) 11.0 % 4.8-9.0 H EOSINOPHIL % (test code = EO%) 4.9 % 0.3-3.7 H BASOPHIL % (test code = BA%) 0.4 % 0.0-2.0 N NUCLEATED RBC % (test code = NRBC%) 0.0 % 0-0 N NEUTROPHIL # (test code = NT#) 6.56 x10 3/uL 2.0-7.6 N IMMATURE GRANULOCYTE # (test code = IG#) 0.15 x10 3/uL 0.00-0.03 H LYMPHOCYTE # (test code = LY#) 0.98 x10 3/uL 1.0-3.8 L MONOCYTE # (test code = MO#) 1.01 x10 3/uL 0.1-0.8 H EOSINOPHIL # (test code = EO#) 0.45 x10 3/uL 0.0-0.2 H BASOPHIL # (test code = BA#) 0.04 x10 3/uL 0.0-0.2 N NUCLEATED RBC # (test code = NRBC#) 0.00 x10 3/uL 0.0-0.1 N MANUAL DIFF REQUIRED (test code = MDIFF) NO BMRNXH7347-39-44 01:12:00* Test Item Value Reference Range Interpretation Comments GLUBED (test code = GLUBED) 232 MG/DL 70-110 H Performed by certified plug saw operator at [facility] RDHPJP1089-89-20 17:31:00* Test Item Value Reference Range Interpretation Comments GLUBED (test code = GLUBED) 180 MG/DL 70-110 H Performed by certified plug saw operator at [facility] SLZZWF0570-61-08 12:49:00* Test Item Value Reference Range Interpretation Comments GLUBED (test code = GLUBED) 193 MG/DL 70-110 H Performed by certified plug saw operator at [facility] STMGKJ8933-26-75 09:15:00* Test Item Value Reference Range Interpretation Comments GLUBED (test code = GLUBED) 160 MG/DL 70-110 H Performed by certified plug saw operator at [facility] GBTKLM3559-57-68 19:36:00* Test Item Value Reference Range Interpretation Comments GLUBED (test code = GLUBED) 192 MG/DL 70-110 H Performed by certified plug saw operator at [facility] TOKJBC7826-61-39 17:17:00* Test Item Value Reference Range Interpretation Comments GLUBED (test code = GLUBED) 182 MG/DL 70-110 H Performed by certified plug saw operator at [facility] YAMWQC6945-58-05 09:23:00* Test Item Value Reference Range Interpretation Comments GLUBED (test code = GLUBED) 152 MG/DL 70-110 H Performed by certified plug saw operator at [facility] BASIC METABOLIC VJACQ5897-88-44 07:56:00* Test Item Value Reference Range Interpretation Comments SODIUM (test code = NA) 143 mEq/L 134-147 N POTASSIUM (test code = K) 3.7 mEq/L 3.4-5.0 N CHLORIDE (test code = CL) 114 mEq/L 100-108 H CARBON DIOXIDE (test code = CO2) 22 mEq/L 21-33 N ANION GAP (test code = GAP) 11 0-20 N GLUCOSE (test code = GLU) 133 mg/dL 70-110 H BLOOD UREA NITROGEN (test code = BUN) 26 mg/dL 7-18 H GLOMERULAR FILTRATION RATE (test code = GFR) 71.2 70-80 N Units of measure = ml/min/1.73 m2 CREATININE (test code = CREAT) 1.0 mg/dL 0.6-1.3 N CALCIUM (test code = CA) 8.3 mg/dL 8.0-10.5 N [id number] 20:38:00* Test Item Value Reference Range Interpretation Comments GLUBED (test code = GLUBED) 253 MG/DL 70-110 H Performed by certified plug saw operator at [facility] [id number] 13:23:00* Test Item Value Reference Range Interpretation Comments GLUBED (test code = GLUBED) 124 MG/DL 70-110 H Performed by certified plug saw operator at [facility] PROCALCITONIN (PCT)2019-10-02 11:17:00* Test Item Value Reference Range Interpretation Comments PROCALCITONIN (PCT) (test code = PROCAL) < 0.05 ng/mL 0.00-0.05 N PROCALCITONIN (PCT) NORMAL RANGE (ADULT): <0.05 NG/ML. * a concentration <0.5 ng/mL represents a low risk of severe sepsis and/or septic shock.* a concentration >2 ng/mL represents a high risk of severe sepsis and/or septic shock.Nevertheless, concentrations <0.5 ng/mL do not exclude aninfection, on account of localized infections (withoutsystemic signs) which can be associated with such lowconcentrations, or a systemic infection in its initialstages (< 6 hours). Furthermore, increased procalcitonincan occur without infection. PCT concentrations between 0.5and 2.0 ng/mL should be interpreted taking into account thepatient's history. It is recommended to retest PCT within6-24 hours if any concentrations <2 ng/mL are obtained. UA RFLX MICR CULT IF [id number] 10:24:00* Test Item Value Reference Range Interpretation Comments UA COLOR (test code = COLU) RED YEL/STRAW A UA APPEARANCE (test code = APPU) CLOUDY CLEAR A UA GLUCOSE DIPSTICK (test code = DGLUU) NEGATIVE NEGATIVE UA BILIRUBIN DIPSTICK (test code = BILU) NEGATIVE NEGATIVE UA KETONE DIPSTICK (test code = KETU) NEGATIVE NEGATIVE UA SPECIFIC GRAVITY (test code = SGU) 1.014 1.005-1.030 N UA BLOOD DIPSTICK (test code = MALA) 3+ NEGATIVE A UA PH DIPSTICK (test code = BESSIE) 8.0 5.0-7.0 H UA PROTEIN DIPSTICK (test code = PROU) 2+ NEGATIVE A UA UROBILINIOGEN DIPSTICK (test code = URO) 4.0 mg/dL 0.2-1.0 A UA NITRITE DIPSTICK (test code = BROOKS) NEGATIVE NEGATIVE UA LEUKOCYTE ESTERASE DIPSTICK (test code = LEUU) 3+ NEGA TIVE A UA WBC (test code = WBCU) >50 WBC/HPF 0-3 A UA RBC (test code = RBCU) >50 RBC/HPF 0-3 A UA WBC NO REFLEX (test code = WBCUCL) >50 WBC/HPF 0-3 A UA BACTERIA (test code = BACU) 4+ /HPF NONE SEEN A UA SQUAMOUS CELLS (test code = SQU) 0-5 /HPF NONE SEEN Indication for culture: Sev. Sepsis-no other srcSpecimen Description: INDWEL LING CATH (SARAH)Cath Status: Over 72 hoursHEPATIC FUNCTION [id number] 09:17:00* Test Item Value Reference Range Interpretation Comments TOTAL PROTEIN (test code = PROT) 5.9 g/dL 6.4-8.2 L ALBUMIN (test code = ALB) 3.00 g/dL 3.4-5.0 L BILIRUBIN TOTAL (test code = BILT) 0.8 MG/DL <1.5 N BILIRUBIN DIRECT (test code = BILD) 0.30 MG/DL 0.0-0.30 N BILIRUBIN INDIRECT (test code = BILIND) 0.50 MG/DL SGOT/AST (test code = AST) 16 IUnit/L 15-37 N SGPT/ALT (test code = ALT) 22 IUnit/L 15-65 N ALKALINE PHOSPHATASE TOTAL (test code = ALKP) 65 IUnit/L 20-125 N [id number] 09:17:00* Test Item Value Reference Range Interpretation Comments ALCOHOL (test code = ALC) < 0.003 G/dL <0.003 Et hyl Alcohol Interpretation: 0.100 gm/dL - Legally Intoxicated 0.300-0.400 gm/dL - Severely Intoxicated >0.400 gm/dL - Potentially LethalResults are for Medical purposes only, and not for Legal orEmployment evaluation purposes. - CT C-SPINE W/O [id number] 09:17:00 Name: NICOLEJANETT MCLAIN [facility]: 1935 Age/S: 84 / M [address] [place] [address] Unit #: [id number] Loc: [place] [address] Phys: Jose Pineda DO Acct: [id number] Dis Date: Status: REG ER PHONE #: [phone] Exam Date: 10/02/2019 0849 FAX #: [phone] Reason: ams, found on floor, neck pain EXAMS: CPT CODE: [id number] CT C-SPINE W/O CONT 58467 CT cervical spine without contrast 10/02/2019 HISTORY: Neck pain. Found on floor PROCEDURE: Multiple axial images from the skull base to the thoracic inlet were obtained without contrast. Coronal and sagittal reconstructed images were performed CT imaging performed at this location utilizes radiation dose optimization techniques which include one or more of the following: -Automated exposure control -Adjustment of the mA and/or kV according to patient size - Use of iterative reconstruction technique CT Radiation Dose DLP 254.73 mGy-cm No prior exams are available for comparison FINDINGS: There is straightening of the lower cervical spine. Vertebral body heights are maintained. Grade 1 retrolisthesis at C3-4 is noted. There is severe spinal canal stenosis at C3-4 due to disc space narrowing and osteophytes. There is moderate bilateral neural foraminal narrowing at C5-6 and C6-7 due to disc space narrowing and posterior lateral osteophytes. Severe bilateral neural foraminal narrowing at C3-4 is noted. There are moderate degenerative changes at the craniocervical junction. There is no lucency to suggest an acute fracture. No aggr essive lesion is present. Bilateral carotid bulb calcifications are presen t. No prevertebral soft tissue swelling is noted. No lymphadenopathy or mass lesion is present. Thyroid is diffusely heterogeneous. IMPRESSION: 1. No acute fracture involving cervical spine. 2. Grade 1 retrolisthesis at C3-4. 3. Severe degenerative changes at C3-4 with severe spinal canal stenosis and severe bilateral neural foraminal narrowing. 4. Other moderate degenerative changes as described, mostly at C5-6 and C6-7. SL: [id number] at 0917 Reported and signed by: Homar Cooper M.D. PAGE 1 Signed Report (CONTINUED) Name: JANETT RIVERA [facility] : 1935 Age/S: 84 / M [address] Unit #: [id number] Loc: [place] [address] Phys: Jose Pineda DO Acct: [id number] Dis Date: Status: REG ER PHONE #: [phone] Exam Date: 10/02/2019 0849 FAX #: [phone] Reason: ams, found on floor, neck pain EXAMS: CPT CODE: [id number] CT C-SPINE W/O CONT 23607 < Continued> CC: Jose Pineda DO Technologist:Jimmy Bautista, RT(R) CTDI: DLP: Trnscb Date/Time: 10/02/2019 (09) [email or web address] Orig Print D/T: S: 10/02/2019 (1579) PAGE 2 Signed Report CBC W/AUTO [id number] 09:15:00* Test Item Value Reference Range Interpretation Comments WHITE BLOOD CELL (test code = WBC) 7.61 x10 3/uL 4.5-11.0 N RED BLOOD CELL (test code = RBC) 3.66 x10 6/uL 4.00-5.60 L HEMOGLOBIN (test code = HGB) 11.7 g/dL 12.5-16.9 L HEMATOCRIT (test code = HCT) 36.3 % 37.5-50.7 L MEAN CELL VOLUME (test code = MCV) 99.2 fL 81.0-99.0 H MEAN CELL HGB (test code = MCH) 32.0 pg 27.0-33.0 N MEAN CELL HGB CONCETRATION (test code = MCHC) 32.2 g/dL 33.0-37. 0 L RED CELL DISTRIBUTION WIDTH CV (test code = RDW) 13.7 % 11.5- 14.5 N RED CELL DISTRIBUTION WIDTH SD (test code = RDW-SD) 49.7 fL 37 .0-54.0 N PLATELET COUNT (test code = PLT) 242 x10 3/uL 150-400 N MEAN PLATELET VOLUME (test code = MPV) 11.2 fL 7.0-9.0 H NEUTROPHIL % (test code = NT%) 73.1 % 56.0-77.0 N IMMATURE GRANULOCYTE % (test code = IG%) 1.7 % 0.0-2.0 N LYMPHOCYTE % (test code = LY%) 12.2 % 14.0-32.0 L MONOCYTE % (test code = MO%) 11.2 % 4.8-9.0 H EOSINOPHIL % (test code = EO%) 1.4 % 0.3-3.7 N BASOPHIL % (test code = BA%) 0.4 % 0.0-2.0 N NUCLEATED RBC % (test code = NRBC%) 0.4 % 0-0 H NEUTROPHIL # (test code = NT#) 5.56 x10 3/uL 2.0-7.6 N IMMATURE GRANULOCYTE # (test code = IG#) 0.13 x10 3/uL 0.00-0.03 H LYMPHOCYTE # (test code = LY#) 0.93 x10 3/uL 1.0-3.8 L MONOCYTE # (test code = MO#) 0.85 x10 3/uL 0.1-0.8 H EOSINOPHIL # (test code = EO#) 0.11 x10 3/uL 0.0-0.2 N BASOPHIL # (test code = BA#) 0.03 x10 3/uL 0.0-0.2 N NUCLEATED RBC # (test code = NRBC#) 0.03 x10 3/uL 0.0-0.1 N MANUAL DIFF REQUIRED (test code = MDIFF) NO - CT HEAD/BRAIN W/O [id number] 09:13:00 Name: JANETT RIVERA [facility] : 1935 Age/S: 84 / M [address] [place] [address] Unit #: [id number] Loc: [place] [address] Phys: Jose Pineda DO Acct: [id number] Dis Date: Status: REG ER PHONE #: [phone] Exam Date: 10/02/2019 0849 FAX #: [phone] Reason: ams EXAMS: CPT CODE: [id number] CT HEAD/BRAIN W/O CONT 90919 CT head without contrast 10/02/2019 HISTORY: Altered mental status. PROCEDURE: Multiple axial images from the skull base to the skull vertex were obtained without contrast. Coronal and sagittal reconstructed images were performed CT imaging performed at this location utilizes radiation dose optimization techniques which include one or more of the following: -Automated exposure control -Adjustment of the mA and/or kV according to patient size -Use of iterative reconstruction technique CT Radiation Dose DLP 629.55 mGy-cm No prior exams are available for comparison FINDINGS: There is mild atrophy. Right parietal low dense subdural fluid collection measures 9 mm. No acute hemorrhage, midline shift, hydrocephalus, or parenchymal mass lesion is present. There are mild white matter hypodensities. Bilateral mastoid opacification is noted. There is no air-fluid level in the visualized paranasal sinuses. Distal internal carotid arterial calcifications are present. IMPRESSION: 1. No acute intracranial abnormality. 2. 9 mm right parietal subdural hygroma versus chronic subdural hematoma. 3. Mild atrophy and mild chronic microvascular ischemic changes. 4. Nonspecific bilateral m astoid opacification. SL: [id number] El ectronically Signed by Radhames Cooper on at 0913 Reported and signed by: Lilibeth Cooper M.D. CC: Jose Pineda DO Technologist:RT Paul(R) CTDI: DLP: Trn scb Date/Time: 10/02/2019 (912) [email or web address] Orig Print D/T : S: 10/02/2019 (0916) PAGE 1 Signed Report PROTHROMBIN [id number] 09:11:00* Test Item Value Reference Range Interpretation Comments PROTHROMBIN TIME PATIENT (test code = PTP) 13.5 SECONDS 9.3-12.9 H INTERNATIONAL NORMAL RATIO (test code = INR) 1.2 0.8-1.2 N TARGET INR BY INDICATION Indication INR1. Prophylaxis of venous thrombosis 2.0 - 3.0 (orthopedic surgery), Prophylaxis of venous thrombosis (other than high-risk surgery), Treatment of Deep Vein Thrombosis/Pulmonary Embolism, Prevention of systemic embolism - Tissue heart valves, Acute Myocardial Infarction (to prevent systemic embolism), Valvular heart disease, Atrial Fibrillation, Bileaflet mechanical valve in aortic position.2. Mechanical prosthetic valves (high risk), 2.5 - 3.5 Presence of Lupus Anticoagulant or Antiphospholipid Antibodies, Prevention of systemic embolism - Acute Myocardial Infarction (to prevent recurrent infarct). THROMBOPLASTIN TIME [id number] 09:11:00* Test Item Value Reference Range Interpretation Comments THROMBOPLASTIN TIME PARTIAL (test code = PTT) 30.0 Seconds 25.0-39. 5 N Therapeutic Range: 50.4 - 88.3 Seconds Effective 03/04/2019 TROPONIN-I [id number] 09:10:00* Test Item Value Reference Range Interpretation Comments TROPONIN-I RAPID (test code = TROPIRAP) 0.01 ng/mL 0.00-0.08 N Performed by certified plug saw operator at [facility] Negative: <= 0.08 Positive: >= 0.09An elevated troponin value alone is not sufficient todiagnose a myocardial infarction. Rather, the patient sclinical presentation (history, physical exam) and ECGshould be used in conjunction with troponin in thediagnostic evaluation of suspected myocardial infarction. Aserial sampling protocol is recommended to facilitate the identification of temporal changes in troponin levels characteristic of AK. CHEMISTRY 8 [id number] 08:43:00* Test Item Value Reference Range Interpretation Comments ISTAT-SODIUM (test code = NAP) MMOL/L 134-147 ISTAT-POTASSIUM (test code = KP) MMOL/L 3.4-5.0 ISTAT-CHLORIDE (test code = CLP) MMOL/L 100-108 ISTAT CARBON DIOXIDE (test code = ISTAT-CO2) mmol/L 21-33 N ISTAT CALCIUM IONIZED (test code = ISTAT-MAIKOL) MG/DL 1.12-1.3 2 ISTAT-GLUCOSE (test code = GLUP) MG/DL 70-110 H ISTAT-BUN (test code = BUNP) MG/DL 7-18 H BEDSIDE CREATININE (test code = CREATBED) MG/DL 0.6-1.3 H GLOMERULAR FILTRATION RATE POC (test code = GFRBED) 51 ML/MIN CHEMISTRY 8 [id number] 08:43:00* Test Item Value Reference Range Interpretation Comments ISTAT-SODIUM (test code = NAP) 143 MMOL/L 134-147 N ISTAT-POTASSIUM (test code = KP) 3.8 MMOL/L 3.4-5.0 N ISTAT-CHLORIDE (test code = CLP) 102 MMOL/L 100-108 N Performed by certified plug saw operator at [facility] ISTAT CARBON DIOXIDE (test code = ISTAT-CO2) 29.0 mmol/L 21-33 N ISTAT CALCIUM IONIZED (test code = ISTAT-MAIKOL) 1.10 MG/DL 1.12-1.3 2 L ISTAT-GLUCOSE (test code = GLUP) 145 MG/DL 70-110 H ISTAT-BUN (test code = BUNP) 28 MG/DL 7-18 H BEDSIDE CREATININE (test code = CREATBED) 1.4 MG/DL 0.6-1.3 H GLOMERULAR FILTRATION RATE POC (test code = GFRBED) 51 ML/MIN LACTIC ACID [id number] 08:42:00* Test Item Value Reference Range Interpretation Comments LACTIC ACID POC (test code = LACTP) 1.4 MMOL/L 0.90-1.70 N Performed by certified plug saw operator at [facility] - XR PELVIS 1/2 [id number] 08:38:00 FAX: Jose Pineda DO [address]: St: PRE Name: JANETT THOMPSON [facility] : [birth year] Age/S: 84/M [address] [place] [address] Unit #: [id number] Loc: [address] [address] Phys: Jose Pineda DO Acct: [id number] Dis Date: Status: PRE ER PHONE #: [phone] Exam Date: 10/02/2019 0831 FAX #: [phone] Reason: pain EXAMS: CPT CODE: [id number] XR PELVIS 1/2 VIEWS 01950 Pelvis single view 10/02/2019 HISTORY: Fall from bed. Neck pain FINDINGS: Sacroiliac joints and pubic symphysis are intact. Superior and inferior rami are int act. Femoral heads are well rounded. There is no lucency to suggest an a cute fracture. No aggressive lesion is present. IMPRESSIO N: No acute injury to bony pelvis identified. SL: NICHOLAS [id number] at 0838 Reported and signed by: Homar Cooper M.D. CC: Jose Pineda DO Technologist: RT Sánchez(Ernesto) Trnscrd Date/Time/By: 10/02/2019 (0838) : By: [email or web address] Orig Print D/T: S: 10/02/2019 (0820) PAGE 1 Signed Report - XR CHEST 1 [id number] 08:36:00 FAX: Jose Pineda DO [address]: St: PRE Name: JANETT THOMPSON [facility] : [birth year] Age/S: 84/M [address] [place] [address] Unit #: [id number] Loc: [address] [address] Phys: Jose Pineda DO Acct: [id number] Dis Date: Status: PRE ER PHONE #: [phone] Exam Date: 10/02/2019 08 FAX #: [phone] Reason: ams EXAMS: CPT CODE: [id number] XR CHEST 1 V 56531 Chest single view 10/02/2019 HISTORY: Altered mental status Comparison is made to 03/27/2015 FINDINGS: Midline sternotomy wires and pacemaker are stable. Mild cardiomegaly is stable. There is mild tortuosity of the aorta which contains calcifications. The lungs are hypoinflated. No consolidation or pleural effusion is present. There is mild crowding of the pulmonary vessels. No interstitial edema is noted. IMPRESSION: Hypoinflated lungs. No acute cardiopulmonary process identified. SL: [id number] at 0836 Reported and signed by: Homar Cooper M.D. CC: Jose Pineda DO Technologist: RT Sánchez(Ernesto) Trnscrd Date/Time/By: 10/02/2019 (0836) : By: [email or web address] Orig Print D/T: S: 10/02/2019 (0858) PAGE [address] SOFT TISSUE NECK [id number] 01:20:00 [place] [address] Patient Name: JANETT RIVERA MR #: [id number] : 1935 Age/Sex: 84/M Req #: [id number] Adm Physician: Ordered by: TODD ALICEA MD Report #: [id number] Location: ER Room/Bed: Procedure: 2 CT/CT SOFT TISSUE NECK WO Exam Date: Exam Time: REPORT STATUS: Signed EXAMINATIO N: CT of the neck without contrast HISTORY: Evaluate for lodge food in esophagus, patient feels like something is stuck on the right side of neck, near the sternal notch level. COMPARISON: None TECHNIQUE: Multidetector h elical axial images were obtained from the sternal notch through the skull ba se without IV contrast. Images were reconstructed using soft tissue and bone algorithms and were viewed in multiplanar format. Dose modulation, iterative reconstruction, and/or weight based adjustment of the mA/kV was utilized to r educe the radiation dose to as low as reasonably achievable. Image quality: The lack of IV contrast limits the evaluation of neck mass, lymphadenopathy an d vascular structures. FINDINGS: Mass: No discrete mass. Nodes: No discrete enlarged cervical lymphadenopathy in this unenhanced stud y. Sinuses: Imaged portions unremarkable. Oral cavity: Unremarkabl e. Salivary glands: Parotid and submandibular glands unremarkable. Pharynx: Normal, no discrete mass or dense foreign bodies. Lar ynx: Normal, no discrete mass identified. Thyroid gland: Unremarkable. Upper esophagus: No discrete mass or dense foreign bodies . Bl ood vessels: Cannot be evaluated due to the lack of IV contrast Bones: -Cervical spine: C3-C4: Asymmetric right disc osteophyte complex formation, bilateral uncovertebral and facet arthrosis. Moderately severe spinal and ri ght foraminal stenosis. Moderate left foraminal stenosis. C4-C5: Small disc osteophyte complex formation, bilateral uncovertebral osteoarthrosis. Mild can al and left foraminal stenosis. Minimal degenerative anterolisthesis. C5-C6: Disc osteophyte complex formation, bilateral uncovertebral and facet arthrosi s. Moderate to severe spinal canal and bilateral foraminal stenosis. C6-C7: Di sc osteophyte complex formation, bilateral uncovertebral and facet arthrosis. Severe right and moderate left foraminal stenosis. Mild canal stenosis. C7-T 1: Uncovertebral and facet arthrosis. Moderately severe bilateral foraminal st enosis worse on the right. -Sternotomy wires are partially visualized. In cidental findings: Partially visualized pacemaker leads. IMPRESSION: N o discrete mass or dense foreign bodies in the upper aerodigestive tract. Signed by: Dr. Michele Rivera M.D. on 06/07/2019 1:31 AM Dictated By: MICHELE RIVERA MD 0 Transcribed By: BRENDA on 06/07/19130 COPY TO: TODD ALICEA MD [O] Hemoglobin A1c (in office)2018-01-21 14:54:00* Test Item Value Reference Range Interpretation Comments HEMOGLOBIN A1c (test code = 4548-4) 7.1 [facility] ([facility]2018-01-21 14:54:00* Test Item Value Reference Range Interpretation Comments Glucose POC Lifescan (test code = Glucose POC Lifescan) 233 [facility][QL] CMP [id number] 10:02:00* Test Item Value Reference Range Interpretation Comments GLUCOSE; Above High Threshold (test code = 1547-9) 127 mg/dl 65- 99 Fasting reference interval For someone without known diabetes, a glucosevalue >125 mg/dL indicates that they may havediabetes and this should be confirmed with afollow- up test. UREA NITROGEN (BUN) (test code = UREA NITROGEN (BUN)) 27 mg/dl 7-25 CREATININE (test code = CREATININE) 1.56 mg/dl 0.70-1.11 For patients >49 years of age, the reference limitfor Creatinine is approximately 13% higher for peopleidentified as -Danish. eGFR NON- (test code = eGFR NON-GUTIERREZ N CENTRAL AFRICAN) 41 {ML/MIN/1.7} > OR = 60 eGFR (test code = eGFR ) 47 {ML/MIN/1.7} > OR = 60 BUN/CREATININE RATIO (test code = BUN/CREATININE RATIO) 17 {CALC} 6-22 N SODIUM (test code = SODIUM) 139 mmol/L 135-146 N POTASSIUM (test code = POTASSIUM) 3.9 mmol/L 3.5-5.3 N CHLORIDE (test code = CHLORIDE) 106 mmol/L 98-110 N CARBON DIOXIDE (test code = CARBON DIOXIDE) 27 mmol/L 20-31 N CALCIUM (test code = CALCIUM) 8.9 mg/dl 8.6-10.3 N PROTEIN, TOTAL (test code = PROTEIN, TOTAL) 6.2 g/dl 6.1-8.1 N ALBUMIN (test code = ALBUMIN) 4.1 g/dl 3.6-5.1 N GLOBULIN (test code = GLOBULIN) 2.1 {G/DL CALC} 1.9-3.7 N ALBUMIN/GLOBULIN RATIO (test code = ALBUMIN/GLOBULIN RATIO) 2.0 {CALC} 1.0-2.5 N BILIRUBIN, TOTAL; Normal (test code = 68996-6) 0.6 mg/dl 0.2-1.2 N ALKALINE PHOSPHATE (test code = ALKALINE PHOSPHATE) 41 u/l 40 -115 N AST; Normal (test code = 1916-6) 15 u/l 10-35 N ALT; Normal (test code = 1742-6) 15 u/l 9-46 N ALKALINE PHSPHATASE (test code = ALKALINE PHSPHATASE) 41 u/l 40-115 N [facility]] T4, [id number] 10:02:00* Test Item Value Reference Range Interpretation Comments T4, FREE (test code = T4, FREE) 1.1 ng/dl 0.8-1.8 N [facility]] TSH, 3RD [id number] 10:02:00* Test Item Value Reference Range Interpretation Comments TSH; Normal (test code = 49993-5) 2.90 {MIU/L} 0.40-4.50 N [facility]] VITAMIN D, 25-HYDROXY, LC/MS/[id number] 10:02:00* Test Item Value Reference Range Interpretation Comments VITAMIN D, 25-OH, TOTAL (test code = VITAMIN D, 25-OH, TOTAL) 39 ng /ml 30-100 N Vitamin D Status 25-OH Vitamin D: Deficiency: <20 ng/mLInsufficiency: 20 - 29 ng/mLOptimal: > or = 30 ng/mL For 25-OH Vitamin D testing on patients on D2-supplementation and patients for whom quantitation of D2 and D3 fractions is required, the QuestAssureD(TM)25-OH VIT D, (D2,D3), LC/MS/MS is recommended: order code 39201 (patients >2yrs). For more information on this test, go to:http://[employer]/faq/ILH140(This link is being provided for informational/educational purposes only.) VITAMIN D,25-OH,TOTAL,IA (test code = VITAMIN D,25-OH,TOTAL,IA) 39 ng/ml 30-100 N Vitamin D Status 25-OH Vitamin D : Deficiency: <20 ng/mLInsufficiency: 20 - 29 ng/mLOptimal: > or = 30 ng/mL For 25-OH Vitamin D testing on patients on D2-supplementation and patients for whom quantitation of D2 and D3 fractions is required, the QuestAssureD(TM)25-OH VIT D, (D2,D3), LC/MS/MS is recommended: order code 52807 (patients >2yrs). For more information on this test, go to:http://education.Invistics/faq/PLO962(This link is being provided for informational/educational purposes only.) [facility] ([facility])2017-11-30 09:13:00* Test Item Value Reference Range Interpretation Comments Glucose POC Lifescan (test code = Glucose POC Lifescan) 128 [facility][O] Lipid Panel (In Office)2017-11-30 09:12:00* Test Item Value Reference Range Interpretation Comments CHOLESTEROL, TOTAL (test code = 2093-3) 111 HDL CHOLESTEROL (test code = 2085-9) 37 TRIGLYCERIDES (test code = 2571-8) 229 LDL-CHOLESTEROL (test code = 42100-8) 28 NON HDL CHOLESTEROL (test code = NON HDL CHOLESTEROL) 74 T. Chol/HDL Ratio (test code = 9830-1) 3.0 GLUCOSE (test code = 1547-9) 129 [facility][O] Hemoglobin A1c (in office)2017-11-30 09:11:00 * Test Item Value Reference Range Interpretation Comments HEMOGLOBIN A1c (test code = 4548-4) 7.8 [facility]
--- NOTE | 2020-04-28 03:18 | Emergency Department Note ---
History of Present Illnes History of Present Illness History of Present Illness This is a 85 year old male brought by EMS for evaluation of decreased UOP per urethral foss . Historian: Quality Control Lab Technician/EMS Arrival Mode: [facility] History limited by: condition of the patient Radiation: Reports abdomen (suprapubic pain) Severity: moderate Onset quality: sudden Duration (how long): hour(s) Progression: worsening Chronicity: new Relieving factors: none Exacerbating factors: none Associated symptoms: Reports denies other symptoms Treatments prior to arrival: none Past Medical/Family History Physician Review I have reviewed the patient's past medical and family history. Any updates have been documented here. Past Medical History Recent Fever: No Clinical Suspicion of Infectio: No New/Unexplained Change in Ment: No Past Medical History: Hypertension, Diabetes, CHF, VT, A-Fib, Hypothyroidism, CAD, GERD, Hyperlipedemia, Chronic Back Pain Other Medical History: LT ANKLE BPH Past Surgical History: CABG, Pacer/AICD, Knee Replacement Other Surgery: CATARACT SX RT KNEE REPLACEMENT LAMINECTOMY 09/23/19 Social History Smoking Cessation: Never Smoker Alcohol Use: None Any Illegal Drug Use: No Other Last Tetanus: UNK Review of Systems Review of Systems Constitutional: Reports no symptoms EENTM: Reports no symptoms Cardiovascular: Reports no symptoms Respiratory: Reports no symptoms Gastrointestinal: Reports no symptoms Genitourinary: Reports pain Musculoskeletal: Reports no symptoms Integumentary: Reports no symptoms Neurological: Reports no symptoms Psychological: Reports no symptoms Endocrine: Reports no symptoms Hematological/Lymphatic: Reports no symptoms Review of other systems All other systems reviewed and negative. Physical Exam Related Data Allergies: Coded Allergies: cephalexin (Verified Allergy, Unknown, 11/24/19) nitrofurantoin (Verified Allergy, Unknown, 06/07/19) Triage Vital Signs Vital Signs Date Time Temp Pulse Resp B/P (MAP) Pulse Ox O2 Delivery O2 Flow Rate FiO2 04/28/20 03:12 97.7 82 16 129/87 97 Vital signs reviewed: Yes Physical Exam CONSTITUTIONAL Constitutional: Reports cachectic, Reports ill appearing HENT HENT: Reports normocephalic, Reports atraumatic, Reports oropharynx clear/moist, Reports nose normal HENT L/R: Reports left ext ear normal, Reports right ext ear normal EYES Eyes: Reports PERRL, Reports conjunctivae normal NECK Neck: Reports ROM normal PULMONARY Pulmonary: Reports effort normal, Reports breath sounds normal CARDIOVASCULAR Cardiovascular: Reports regular rhythm, Reports heart sounds normal, Reports capillary refill normal, Reports normal rate GASTROINTESTINAL Abdominal: Reports soft, Reports other (suprapubic pain) GENITOURINARY Genitourinary: Reports exam deferred SKIN Skin: Reports pale MUSCULOSKELETAL Musculoskeletal: Reports ROM normal NEUROLOGICAL Neurological: Reports alert PSYCHOLOGICAL Psychological: Reports mood/affect normal, Reports judgement normal Assessment & Plan Medical Decision Making MDM 85 yom brought by EMS for obstructed urethral foss catheter. Foss replaced at bedside with immedite relief from pain. Assessment & Plan Final Impression: (1) Obstructed Foss catheter Depart Disposition: HOME, SELF-CARE Last Vital Signs Date Time Temp Pulse Resp B/P (MAP) Pulse Ox O2 Delivery O2 Flow Rate FiO2 04/28/20 03:12 97.7 82 16 129/87 97 Home Meds Active Scripts Triamcinolone Acet (TRIAMCINOLONE ACETONIDE) 15 Gm Cr, 0 GM TOP BID for 30 Days, #1 TUBE Prov:GA SHEETS NP 12/02/19 Tamsulosin Hcl* (FLOMAX*) 0.4 Mg Cap, 0.4 MG PO HS for 30 Days, #30 CAP Prov:KORTNEYGA Rafaela EDMONDS 12/02/19 [Potassium Chloride 20MEQ/15ML] 20 MEQ/15 ML LIQD No Conflict Check, 20 MEQ NG DAILY for 30 Days, #60 Prov:GA SHEETS NP 12/02/19 Ondansetron Hcl/Pf (ONDANSETRON HCL 4 MG/2 ML VIAL) 4 Mg/2 Ml Vial, 4 MG IV Q6H PRN for NAUSEA AND VOMITING for 30 Days, #30 VIAL Prov:GA SHEETS NP 12/02/19 Nystatin (NYSTATIN) 100,000 Unit/1 Ml Oral.susp, 5 ML PO Q6HR for 30 Days, #30 Prov:GA SHEETS NP 12/02/19 [Morphine Sulfate 2MG/Ml] 2 MG/ML INJ No Conflict Check, 1 MG IV Q6H PRN for SEVERE PAIN (7-10) for 30 Days, #60 Prov:GA SHEETS NP 12/02/19 [Metoprolol Tartrate Inj] 1 MG/ML SOLN No Conflict Check, 2.5 MG IV Q6H PRN for HR>110, sbp>160 for 30 Days, #30 Prov:GA SHEETS KENDAL 12/02/19 Loratadine (LORATADINE) 10 Mg Tablet, 10 MG PO DAILY for 30 Days, #30 TAB Prov:GA SHEETS KENDAL 12/02/19 Levalbuterol Hcl (XOPENEX) 0.63 Mg/3 Ml Vial.neb, 0.63 MG INH RQ6H PRN for SHORTNESS OF BREATH for 30 Days, #90 Prov:GA SHEETS KENDAL 12/02/19 [Insulin Lispro] 100 UNIT/1 ML VIAL No Conflict Check, 0 UNIT SQ Q6H for 30 Days, #30 Prov:GA SHEETS Rafaela EDMONDS 12/02/19 Furosemide (FUROSEMIDE) 10 Mg/1 Ml Vial, 40 MG IV DAILY for 30 Days, #30 VIAL Prov:GA SHEETS KENDAL 12/02/19 [Fluticasone Propionate] 1 EA SPRAY No Conflict Check, 0 EA NS DAILY for 30 D ays, #1 SPRAYS Prov:GA SHEETS Rafaela EDMONDS 12/02/19 Famotidine/Pf (FAMOTIDINE 20 MG/2 ML VIAL) 20 Mg/2 Ml Vial, 20 MG IV BID for 30 Days, #60 VIAL Prov:GA SHEETS KENDAL 12/02/19 Docusate Sodium (COLACE) 100 Mg/10 Ml Liqd, 100 MG NG BID for 30 Days, #60 Prov:GA SHEETS KENDAL 12/02/19 Dextrose (DEXTROSE 50%-WATER SYRINGE) 50 Ml Inj, 50 ML IV PRN PRN for BLOOD SUGAR for 30 Days, #10 Prov:GA SHEETS Rafaela EDMONDS 12/02/19 Carvedilol (COREG) 3.125 Mg Tab, 6.25 MG PO BID for 30 Days, #60 TAB Prov:GA SHEETS KENDAL 12/02/19 [Calcium Carbonate] 500 MG TAB No Conflict Check, 500 MG PO DAILY for 30 Days, #30 Prov:KORTNEYGA Rafaela EDMONDS 12/02/19 Benzonatate (TESSALON PERLE) 100 Mg Capsule, 200 MG PO Q8HR PRN for COUGH for 30 Days, #60 CAP Prov:KORTNEYGA KENDAL 12/02/19 Atorvastatin Calcium* (LIPITOR*) 10 Mg Tablet, 10 MG PO DAILY@0600 for 30 Days, #30 TAB Prov:GA SHEETS FISHING LURE ASSEMBLER 12/02/19 Apixaban (Eliquis) 5 Mg Tablet, 5 MG PO Q12HR for 30 Days, #30 TAB Prov:GA SHEETS [employer]ING LURE ASSEMBLER 12/02/19 [Albuterol/Ipratropium Nebulize] 3 ML INHA No Conflict Check, 3 ML NEB RQ4H for 30 Days, #100 Prov:GA SHEETS FISHING LURE ASSEMBLER 12/02/19 [Albuterol/Ipratropium Nebulize] 3 ML INHA No Conflict Check, 3 ML NEB RQ4H PRN for SHORTNESS OF BREATH for 30 Days, #100 Prov:GA SHEETS FISHING LURE ASSEMBLER 12/02/19 Acetaminophen (ACETAMINOPHEN) 325 Mg Tablet, 650 MG PO Q6H PRN for Mild Pain (1- 3) or Fever>100.8 for 30 Days, #60 TAB Prov:GA SHEETS FISHING LURE ASSEMBLER 12/02/19 Reported Medications Atorvastatin Calcium (LIPITOR) 20 Mg Tablet 11/24/19 Hydrocodone Bit/Acetaminophen (HYDROCODON-ACETAMINOPHN 10-325) 1 Each Tablet 11/24/19 Trazodone Hcl (TRAZODONE HCL) 50 Mg Tablet 11/24/19 Carvedilol (CARVEDILOL) 6.25 Mg Tablet 11/24/19 Amiodarone Hcl (AMIODARONE HCL) 200 Mg Tablet 11/24/19 MOODY ACOSTA 10, 2020 03:18
== END 2020-04-28 04:00 | disposition home or self-care (01) ==
LOC: ER 03:11
DX: T83.098A Other mechanical complication of other urinary catheter, initial encounter (principal); I10 Essential (primary) hypertension; E11.9 Type 2 diabetes mellitus without complications; E78.5 Hyperlipidemia, unspecified; I25.10 Atherosclerotic heart disease of native coronary artery without angina pectoris; I25.2 Old myocardial infarction; Z95.810 Presence of automatic (implantable) cardiac defibrillator; Z95.1 Presence of aortocoronary bypass graft
CPT/HCPCS: 51700; 99283

== ENCOUNTER 2020-04-30 03:48 | Emergency (ER) | payer MEDICARE ==
[~2020-04-30] VITALS: Ht 175.3 cm; Wt 78.9 kg
--- OUTSIDE RECORDS SUMMARY | 2020-04-30 03:51 | XMS REPORT | Continuity of Care Document ---
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 02/13/2014 [facility] Hypertension Active 02/13/2014 [facility] Mixed Hyperlipoproteinemia Act grecia 02/13/2014 [facility] Coronary Artery Disease Active 02/13/2014 [facility] Hypothyroidism Active 02/13/2014 [facility] Vitamin D Deficiency Active 02/13/2014 [facility] Medications Medication Details Route Status Patient Instructions Ordering Provider Order Date Source Accu-Chek Joelle Plus In Vitro Strip ; Start Date: 02/13/2014 (Active) Active 02/13/2014 [facility] Accu-Chek Softclix Lancets Miscellaneous ; Start Date: 02/13/2014 (Active) Active 02/13/2014 [facility] Levothyroxine Sodium 88 MCG Oral Tablet ; Start Date: 02/05/2014 (Active) Active 02/05/2014 [facility] OneTouch Ultra Mini w/Device Kit ; Start Date: 12/04/2013 (Active) Active 12/04/2013 [facility] Accu-Chek Maria Guadalupe SmartView w/Device Kit ; Start Date: 12/04/2013 (Active) Active 12/04/2013 [facility] FreeStyle Lancets Miscellaneous ; Start Date: 08/18/2013 (Active) Active 08/18/2013 [facility] JameyTomargareth Delica Lancets Fine Miscellaneous ; Start Date: 08/18/2013 (Active) Active 08/18/2013 [facility] Accu-Chek FastClix Lancets Miscellaneous ; Start Date: 08/18/2013 (Active) Active 08/18/2013 [facility] Furosemide 40 MG Oral Tablet ; Start Date: 05/14/2013 (Active) Active 05/14/2013 [facility] Tamsulosin HCl 0.4 MG Oral Capsule ; Start Date: 05/14/2013 (Active) Active 05/14/2013 [facility] ROPINIRole HCl 5 MG Oral Tablet ; Start Date: 03/04/2013 (Active) Active 03/04/2013 [facility] BD Pen Needle Maria Guadalupe U/F 32G X 4 MM Miscellaneous ; Start Date: 10/08/2012 (Active) Active 10/08/2012 [facility] NovoLOG FlexPen 100 UNIT/ML Subcutaneous Solution ; Start Date: 09/30/2012 (Active) Active 09/30/2012 [facility] FreeStyle Lite Test In Vitro Strip ; Start Date: 09/24/2012 (Active) Active 09/24/2012 [facility] Aspirin 81 MG Oral Tablet ; St art Date: 09/24/2012 (Active) Active 09/24/2012 [facility] Glimepiride 2 MG Oral Tablet ; Start Date: 09/24/2012 (Active) Active 09/24/2012 [facility] AmLODIPine Besylate 10 MG Oral Tablet ; Start Date: 09/24/2012 (Active) Active 09/24/2012 [facility] Avapro 300 MG Oral Tablet ; St art Date: 09/24/2012 (Active) Active 09/24/2012 [facility] Digoxin 0.125 MG Oral Tablet ; Start Date: 09/24/2012 (Active) Active 09/24/2012 [facility] Amiodarone HCl 200 MG Oral Tablet ; Start Date: 09/24/2012 (Active) Active 09/24/2012 [facility] Micro-K 8 MEQ Oral Capsule Extended Release ; Start Date: 09/24/2012 (Active) Active 09/24/2012 [facility] Atorvastatin Calcium 20 MG Oral Tablet ; Start Date: 09/24/2012 (Active) Active 09/24/2012 [facility] Vitamin D 2000 UNIT Oral Capsule ; Start Date: 09/24/2012 (Active) Active 09/24/2012 [facility] Niaspan 750 MG Oral Tablet Extended Release ; Start Date: 09/24/2012 (Active) Active 09/24/2012 [facility] Levothyroxine Sodium 50 MCG Oral Tablet ; Start Date: 09/24/2012 (Active) Active 09/24/2012 [facility] OneTouch Ultra Blue In Vitro Strip ; Start Date: 09/24/2012 (Active) Active 09/24/2012 [facility] Niacin ER (Antihyperlipidemic) 750 MG Or al Tablet Extended Release ; Start Date: 09/24/2012 (Active) Active 09/24/2012 [facility] Accu-Chek SmartView In Vitro Strip ; Start Date: 09/24/2012 (Active) Active 09/24/2012 [facility] Glimepiride 1 MG Oral Tablet ; Start Date: 09/24/2012 (Active) Active 09/24/2012 [facility] Amiodarone HCl 100 MG Oral Tablet ; Start Date: 09/24/2012 (Active) Active 09/24/2012 [facility] Micro-K 8 MEQ Oral Capsule Extended Release ; Start Date: 09/24/2012 (Active) Active 09/24/2012 [facility] Allergies, Adverse Reactions, Alerts Substance Category Reaction Severity Reaction type Status Date Reported Comments Source No Known Drug Allergies drug a llergy drug aller gy Active [facility] Immunizations Immunization Date Given Site Status Last Updated Comments Source Influenza completed [facility] Results No Data Provided for This [...] ADM Date DC Date Status Source AUDIT [id number] 05/14/2013 05/14/2013 [facility] Willow RASHID jacky: ONEAL SCHROEDER, Status: Pen, Time: 11:00 AM [id number] 05/15/20 13 05/14/2013 [facility] AUDIT [id number] 08/15/2013 08/15/2013 [facility] AUDIT [id number] 08/18/2013 08/18/2013 [facility] AUDIT [id number] 08/19/2013 08/19/2013 [facility] AUDIT [id number] 08/20/2013 08/20/2013 [facility] AUDIT [id number] 10/30/2013 10/30/2013 [facility] Willow Berrios jacky: HELIO CHAUDHARY, Status: Pen, Time: 9:45 AM [id number] 11/10/20 13 10/30/2013 [facility] AUDIT [id number] 12/04/2013 12/04/2013 [facility] AUDIT [id number] 02/03/2014 02/03/2014 [facility] AUDIT [id number] 02/05/2014 02/05/2014 [facility] E30, Provi jacky: HELIO CHAUDHARY, Status: Pen, Time: 8:00 AM [id number] 02/12/20 14 02/05/2014 [facility] AUDIT [id number] 2014 2014 [facility] AUDIT [id number] 02/13/2014 02/13/2014 [facility] E30, Provi jacky: HELIO CHAUDHARY, Status: Pen, Time: 9:00 AM [id number] 05/18/20 14 02/13/2014 [facility] Procedures No Data Provided for This Section Assessment and Plan No Data Provided for This Section Plan of Care Plan of Care Date Source [QL] VITAMIN D, 25-HYDROXY, LC/MS/MS 02/04/2014 Routin e 02/13/2014 [facility] [QL] VITAMIN D, 25-HYDROXY, LC/MS/MS 02/04/2014 Routin e 2014 [facility] [QL] VITAMIN D, 25-HYDROXY, LC/MS/MS 02/04/2014 Routin e 02/05/2014 [facility] [QL] VITAMIN D, 25-HYDROXY, LC/MS/MS 08/18/2013 Routin e 08/19/2013 [facility] Social History Social History Date Source Marital History - (Active ) Never A Smoker (Active) Never Drank Alcohol (Active) 02/13/2014 [facility] Family History Value Date S ource Family history of Coronary Artery Diseas e (V17.49); (Active) No Family history of Thyroid Cancer (Denied) No Family history of Pancreatitis (Denied) 02/13/2014 [facility] Family history of Coronary Artery Diseas e (V17.49); (Active) No Family history of Thyroid Cancer (Denied) No Family history of Pancreatitis (Denied) 2014 [facility] Family history of Coronary Artery Diseas e (V17.49); (Active) No Family history of Thyroid Cancer (Denied) No Family history of Pancreatitis (Denied) 02/05/2014 [facility] Family history of Coronary Artery Diseas e (V17.49); (Active) No Family history of Thyroid Cancer (Denied) 02/03/2014 [facility] Family history of Coronary Artery Diseas e (V17.49); (Active) No Family history of Thyroid Cancer (Denied) 12/04/2013 [facility] Family history of Coronary Artery Diseas e (V17.49); (Active) No Family history of Thyroid Cancer (Denied) 10/30/2013 [facility] Family history of Coronary Artery Diseas e (V17.49); (Active) No Family history of Thyroid Cancer (Denied) 08/20/2013 [facility] Family history of Coronary Artery Diseas e (V17.49); (Active) No Family history of Thyroid Cancer (Denied) 08/19/2013 [facility] Family history of Coronary Artery Diseas e (V17.49); (Active) No Family history of Thyroid Cancer (Denied) 08/18/2013 [facility] Family history of Coronary Artery Diseas e (V17.49); (Active) No Family history of Thyroid Cancer (Denied) 08/15/2013 [facility] Family history of Coronary Artery Diseas e (V17.49); (Active) No Family history of Thyroid Cancer (Denied) 05/14/2013 [facility] Advance Directives Order Name Results Value Date Source Advance Directives Advance Dir ectives No Advance Directives available. 02/13/2014 [facility] Advance Directives Advance Dir ectives No Advance Directives available. 2014 [facility] Advance Directives Advance Dir ectives No Advance Directives available. 02/05/2014 [facility] Advance Directives Advance Dir ectives No Advance Directives available. 02/03/2014 [facility] Advance Directives Advance Dir ectives No Advance Directives available. 12/04/2013 [facility] Advance Directives Advance Dir ectives No Advance Directives available. 10/30/2013 [facility] Advance Directives Advance Dir ectives No Advance Directives available. 08/20/2013 [facility] Advance Directives Advance Dir ectives No Advance Directives available. 08/19/2013 [facility] Advance Directives Advance Dir ectives No Advance Directives available. 08/18/2013 [facility] Advance Directives Advance Dir ectives No Advance Directives available. 08/15/2013 [facility] Advance Directives Advance Dir ectives No Advance Directives available. 05/14/2013 [facility] Functional Status No Data Provided for This Section
--- OUTSIDE RECORDS SUMMARY | 2020-04-30 03:52 | XMS REPORT | Continuity of Care Document ---
Author Author [facility] t Organization [facility] Address [address] [place] [address] Phone Unavailable Care Team Providers Care Bar Tacker Name Role Phone Linda RODRIGUEZ PCP EDGARDO ALVARADO Attphys Unavailable Sandy ALICEA Attphys Unavailable GEM YODER RD Attphys Unavailable JUJU RODRIGUEZ D.O. Attphys Unavailable HELIO CHAUDHARY M.D. Attphys Unavailable YUAN CHOPRA M.D. Attphys Unavailable Vish Boston M.D. Attphys Unavailable EDGARDO ALVARADO Admphys Unavailable Payers Payer Name Policy Type Policy Number Effective Date Expiration Date Kg hernandez Medicare A & B [id number] 2000 00:00:00 [facility] Problems Condition Name Condition Details Condition Category Status Onset Date Resolution Date Last Treatment Date Treating Clinician Comments Source History of Meningioma History of Meningioma Problem HL7.CCDAR2 Resolved [facility] History of renal calculi History of renal calculi Problem HL7.CCDAR2 Resolved [facility] History of transient cerebral ischemia History of transient cerebral ischemia Problem HL7.CCDAR2 [facility] Obstructive sleep apnea Obstructive sleep apnea [...] syndrome Restless leg syndrome Problem HL7.CCDAR2 Active [facility] Neuropathy Neuropathy Problem HL7.CCDAR2 Active [facility] Reactive airway disease Reactive airway disease Problem HL7.CCDAR2 Activ e [facility] Need for vaccination with 13-polyvalent pneumococcal c onjugate vaccine Need for vaccination with 13-polyvalent pneumococcal conjugate vaccine Problem HL7.CCDAR2 Active [facility] Idiopathic peripheral neuropathy Idiopathic peripheral neuro farhan Problem HL7.CCDAR2 Active [facility] Intractable hiccups Intractable hiccups Problem HL7.CCDAR2 [...] stage III (moderate) Problem HL7.CCDAR2 [facility] Arteriosclerosis of coronary artery Arteriosclerosis of yoko nary artery Problem HL7.CCDAR2 [facility] L4-L5 disc bulge L4-L5 disc bulge Problem HL7.CCDAR2 Active [facility] 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 Problem HL7.CCDAR2 Active [facility] Essential (primary) hypertension Essential (primary) hyperte nsion Problem HL7.CCDAR2 Active [facility] Mixed hyperlipidemia Mixed hyperlipidemia Problem HL7.CCDAR2 Active [facility] Hypothyroidism Hypothyroidism Problem HL7.CCDAR2 Active [facility] Vitamin D deficiency Vitamin D deficiency Problem HL7.CCDAR2 Active [facility] Thyroid cyst Thyroid cyst Problem HL7.CCDAR2 Active [facility] Encounter for long-term current use of medication Enco unter for long-term current use of medication Problem HL7.CCDAR2 Active [facility] Patient cannot afford medications Patient cannot afford medi cations Problem HL7.CCDAR2 Active [facility] Seasonal allergic rhinitis, unspecified chronicity, un specified trigger Seasonal allergic rhinitis, unspecified chronicity, unspecified trigger Problem HL7.CCDAR2 Active [facility] Acute bronchitis Acute bronchitis Problem HL7.CCDAR2 Active [facility] Healthcare-associated pneumonia Problem Active [facility] Obstruction of Sarah catheter Problem Active [facility] Exanthem Exan them Active 02/13/2014 [place] [facility] Problem Active 2014-02-13 11:45:09 Maico Maloney Obstructive Sleep Apnea Obst ructive Sleep Apnea Active 02/13/2014 [place] [facility] Problem Active 2014-02-13 11:45: 09 Maico Maloney Chronic Kidney Disease, Stage 3 Chronic Kidney Disease, Stage 3 Active 02/13/2014 [facility] Problem Active 2 11:45:09 Maico Maloney 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 Active 02/13/2014 [facility] Problem Active 2014-02-13 11:45:09 M filiberto Maloney Hypertension Hype rtension Active 02/13/2014 [place] [facility] Problem Active 2014-02-13 11:45:09 Gunnar Maloney Mixed Hyperlipoproteinemia Mix ed Hyperlipoproteinemia Active 02/13/2014 [place] [facility] Problem Active 2014-02-13 11:45: 09 Maico Maloney Coronary Artery Disease Yoko nary Artery Disease Active 02/13/2014 [place] [facility] Problem Active 2014-02-13 11:45: 09 Maico Maloney Hypothyroidism Hypo thyroidism Active 02/13/2014 [place] [facility] Problem Active 2014-02-13 11:45:09 M filiberto Maloney Vitamin D Deficiency Erin min D Deficiency Active 02/13/2014 [facility] Problem Active 2014-02-13 11:45:09 Maico Maloney Allergies, Adverse Reactions, Alerts Allergy Name Allergy Type Status Severity Reaction(s) Onset Date Inacti ve Date Treating Clinician Comments Source Cephalexin Allergy to substance Active 2019-11-24 00:00:00 [facility] cephalexin DA Active U 2019-10-02 00:00:00 [facility] nitrofurantoin DA Active [place] 2019-10-02 00:00:00 [facility] Nitrofurantoin Allergy to substance Active 2019-06-07 00:00 :00 [facility] No Known Allergies DA Active U 2012-02-01 00:00:00 [facility] No Known Drug Allergies No Known Drug Allergies Active Maico Maloney Family History Family Member Diagnosis Comments Start Date Stop Date Source Unknown Family Member Family history of Coronary Artery Disease Family History [facility] Unknown Family Member Family History 2013-05-14 18:35:54 2 18:35:54 Maico Maloney Mother Family history of Coronary Artery Disease [facility] [place] [facility] Father Family history of Coronary Artery Disease [facility] Sister Family history of Coronary Artery Disease [facility] Sister Family history of diabetes mellitus [facility] Brother Family history of Coronary Artery Disease [facility] Social History Social Habit Start Date Stop Date Quantity Comments Source Social History 2014-02-13 11:45:09 2014-02-13 11:45:09 Maico Maloney Sex Assigned At 1935 00:00:00 1935 00:00:00 Male [facility] Smoking Status Start Date Stop Date Source Never smoker [facility] Medications Ordered Medication Name Filled Medication Name Start Date Stop Da te Current Medication? Ordering Clinician Indication Dosage Frequency Signature (SIG) Comments Components Source Acetaminophen Acetaminophen 2019-12-02 17:03:00 Yes 650 Every 6 Hours as needed for Mild Pain (1-3) Or Fever>100.8 [facility] Albuterol/Ipratropium Nebulize Albuterol/Ipratropium Nebuliz e 2019-12-02 17:03:00 Yes 3 Rt Q4h as needed for Shortnes s Of Breath [facility] Albuterol/Ipratropium Nebulize Albuterol/Ipratropium Nebuliz e 2019-12-02 17:03:00 Yes 3 Rt Q4h [facility] Apixaban (Eliquis) 5 Mg TABLET Apixaban (Eliquis) 5 Mg TABLE T 2019-12-02 17:03:00 Yes 5 Every 12 Hours [facility] Atorvastatin Calcium (Lipitor*) 10 Mg TABLET Atorvasta tin Calcium (Lipitor*) 10 Mg TABLET 2019-12-02 17:03:00 Yes 10 Daily@0600 [facility] Benzonatate (Tessalon Perle) 100 Mg CAPSULE Benzonatat e (Tessalon Perle) 100 Mg CAPSULE 2019-12-02 17:03:00 Yes 200 Every 8 Ho urs as needed for Cough [facility] Calcium Carbonate Calcium Carbonate 2019-12-02 17:03:00 Yes 500 Daily [facility] Carvedilol (Coreg) 3.125 Mg TAB Carvedilol (Coreg) 3.125 Mg TAB 2019-12-02 17:03:00 Yes 6.25 Twice A Day [facility] Dextrose (Dextrose 50%-Water Syringe) 50 Ml INJ Dextro se (Dextrose 50%-Water Syringe) 50 Ml INJ 2019-12-02 17:03:00 Yes 50 As Needed as needed for Blood Sugar [facility] Docusate Sodium (Colace) 100 Mg/10 Ml LIQD Docusate So dium (Colace) 100 Mg/10 Ml LIQD 2019-12-02 17:03:00 Yes 100 Twice A Day [facility] Famotidine/Pf (Famotidine 20 Mg/2 Ml Vial) 20 Mg/2 Ml VIAL Famotidine/Pf (Famotidine 20 Mg/2 Ml Vial) 20 Mg/2 Ml VIAL 2019-12-02 17:03:00 Yes 20 Twice A Day [facility] Fluticasone Propionate Fluticasone Propionate 2019-12-02 17:03:00 Yes 0 Daily [facility] Furosemide Furosemide 2019-12-02 17:03:00 Yes 40 Natasha ly [facility] Insulin Lispro Insulin Lispro 2019-12-02 17:03:00 Yes 0 Every 6 Hours [facility] Levalbuterol Hcl (Xopenex) 0.63 Mg/3 Ml VIAL.NEB Leval buterol Hcl (Xopenex) 0.63 Mg/3 Ml VIAL.NEB 2019-12-02 17:03:00 Yes .63 Rt Q6h as needed for Shortness Of Breath [facility] Loratadine Loratadine 2019-12-02 17:03:00 Yes 10 Natasha ly [facility] Metoprolol Tartrate Inj Metoprolol Tartrate Inj 2019-12-02 17:03:00 Yes 2.5 Every 6 Hours as needed for Hr>110, Sbp>160 [facility] Morphine Sulfate 2MG/Ml Morphine Sulfate 2MG/Ml 2019-12-02 17:03:00 Yes 1 Every 6 Hours as needed for Severe Pain (7-10) [facility] Nystatin Nystatin 2019-12-02 17:03:00 Yes 5 Every 6 Hours [facility] Ondansetron Hcl/Pf (Ondansetron Hcl 4 Mg/2 Ml Vial) 4 Mg/2 Ml VIAL Ondansetron Hcl/Pf (Ondansetron Hcl 4 Mg/2 Ml Vial) 4 Mg/2 Ml VIAL 2019-12-02 17:03:00 Yes 4 Every 6 Hours as needed for Nausea And V omiting [facility] Potassium Chloride 20MEQ/15ML Potassium Chloride 20MEQ/15ML 2019 17:03:00 Yes 20 Daily [facility] Tamsulosin Hcl (Flomax*) 0.4 Mg CAP Tamsulosin Hcl (Flomax*) 0.4 Mg CAP 2019-12-02 17:03:00 Yes .4 Bedtime [facility] Triamcinolone Acet (Triamcinolone Acetonide) 15 Gm CR Triamcinolone Acet (Triamcinolone Acetonide) 15 Gm CR 2019-12-02 17:03:00 Yes 0 Twice A Day [facility] Accu-Chek Joelle Plus In Vitro Strip Accu-Chek Joelle Plus In Vitro Strip 2018 13:19:12 Yes HELIO CHAUDHARY M.D. Chec k three to four times daily [facility] EQL Fluticasone Propionate 50 MCG/ACT Nasal Suspension EQL Fluticasone Propionate 50 MCG/ACT Nasal Suspension 2018-01-29 00:00:00 Yes JUJU RODRIGUEZ D.O. Q0.5D USE 1 SPRAY IN EACH NOSTRIL TWICE DAILY. [facility] Tresiba FlexTouch 100 UNIT/ML Subcutaneous Solution Pe n-injector Tresiba FlexTouch 100 UNIT/ML Subcutaneous Solution Pen-injector 2018-01-21 00:00:00 Yes HELIO CHAUDHARY M.D. Inject 10 un its every day; may self titrate up to 45 units a day [facility] Diclofenac Sodium 1 % Transdermal Gel Diclofenac Sodium 1 % Transdermal Gel 2018-01-14 00:00:00 Yes QD APPLY TO LOWER EXTREMITIES, 4 GM OF GEL TO AFFECTED AREA 4 TIMES DAILY. DO NOT APPLY MORE THAN 16 GM DAILY TO ANY ONE AFFECTED JOINT. [facility] Hydrocodone-Acetaminophen 5-325 MG Oral Tablet Hydroco done-Acetaminophen 5-325 MG Oral Tablet 2018-01-14 00:00:00 Yes TAKE 1 TABLET EVERY 4 TO 6 HOURS NEEDED. [facility] MethylPREDNISolone 4 MG Oral Tablet Therapy Pack Methy lPREDNISolone 4 MG Oral Tablet Therapy Pack 2018-01-14 00:00:00 Yes JUJU RODRIGUEZ D.O. take as directed on package [facility] Ventolin HFA 108 (90 Base) MCG/ACT Inhalation Aerosol Solution Ventolin HFA 108 (90 Base) MCG/ACT Inhalation Aerosol Solution 2018-01-14 00:00:00 Yes SERG RODRIGUEZ D.O. INHALE 1 TO 2 PUFFS BY MOUTH EVER Y 4 TO 6 HOURS NEEDED [facility] Promethazine VC/Codeine 6.25-5-10 MG/5ML Oral Syrup Pr omethazine VC/Codeine 6.25-5-10 MG/5ML Oral Syrup 2018-01-14 00:00:00 Yes JUJU RODRIGUEZ D. O. TAKE 5 ML EVERY 4 TO 6 HOURS NEEDED. [facility] Fenofibrate 48 MG Oral Tablet Fenofibrate 48 MG Oral Tablet 2017 09:01:10 Yes HELIO CHAUDHARY M.D. TAKE 1 TA BLET BY MOUTH DAILY WITH FOOD REPLACING LOVAZA [facility] Hydrocodone-Acetaminophen 5-325 MG Oral Tablet Hydroco [...] MCG/ACT Nasal Suspension 2017-07-30 00:00:00 Yes JUJU Hobson.ONuha QD USE 2 SPRAYS IN EACH NOSTRIL ONCE DAILY [facility] Promethazine VC Plain 6.25-5 MG/5ML [...] 100 UNIT/ML Subcutaneous Solution Pen-injector 2015-03-29 00:00:00 Yes HELIO CHAUDHARY M.D. 2 unit before the two main meals of the day; CF 40 [facility] BD Pen Needle Maria Guadalupe U/F [...] Yes ; Start Date: 02/13/2014 (Active) Maico Donna nn Accu-Chek Softclix Lancets Miscellaneous 2014-02-13 05:00:00 Yes ; Start Date: 02/13/2014 (Active) [address] Accu-Chek Softclix Lancets Accu-Chek Softclix Lancets 2014-02-13 00:0 0:00 Yes HELIO CHAUDHARY M.D. USE TO CHECK BLOOD GLUCOSE TWICE D AILY [facility] Levothyroxine Sodium 88 MCG Oral Tablet 2014-02-05 05:00:00 Yes ; Start Date: 02/05/2014 (Active) Maico Maloney OneEdouarduch Ultra Mini w/Device Kit 2013-12-04 06:00:00 Yes ; Start Date: 12/04/2013 (Active) Maico Donna nn Accu-Chek Maria Guadalupe SmartView w/Device Kit 2013-12-04 06:00:00 Y es ; Start Date: 12/04/2013 (Active) Maico Maloney FreeStyle Lancets Miscellaneous 2013-08-18 05:00:00 Yes ; Start Date: 08/18/2013 (Active) Maico Donna nn Emeliuch Delica Lancets Fine Miscellaneous 2013-08-18 05:00:00 Yes ; Start Date: 08/18/2013 (Active) Maico Maloney Accu-Chek FastClix Lancets Miscellaneous 2013-08-18 05:00:00 Yes ; Start Date: 08/18/2013 (Active) Maico Maloney Furosemide 40 MG Oral Tablet 2013-05-14 05:00:00 Yes ; Start Date: 05/14/2013 (Active) Maico Maloney Tamsulosin HCl 0.4 MG Oral Capsule 2013-05-14 05:00:00 Yes ; Start Date: 05/14/2013 (Active) Maico doss Furosemide 40 MG Oral Tablet Furosemide 40 MG Oral Tablet 2013-04-20 00:00:00 Yes 1.5 TABLET TWICE DAILY ORAL TABLET: Per brewery technician [facility] ROPINIRole HCl 5 MG Oral Tablet 2013-03-04 05:00:00 Yes ; Start Date: 03/04/2013 (Active) Maico doss BD Pen Needle Maria Guadalupe U/F 32G [...] ; Start Date: 09/24/2012 (Active) Maico doss Micro-K 8 MEQ Oral Capsule Extended [...] Yes ; Start Date: 09/24/2012 (Active) Maico Thompson selam Niacin ER (Antihyperlipidemic) 750 MG Oral Tablet Extended R elease 2012-09-24 06:00:00 Yes ; Start Date: 09/24/2012 (Act grecia) Maico Maloney Accu-Chek SmartView In Vitro Strip 2012-09-24 06:00:00 Yes ; Start Date: 09/24/2012 (Active) Maico Thompson selam Glimepiride 1 MG Oral Tablet 2012-09-24 06:00:00 Yes ; Start Date: 09/24/2012 (Active) Maico Maloney Amiodarone HCl 100 MG Oral Tablet 2012-09-24 06:00:00 Yes ; Start Date: 09/24/2012 (Active) Maico Thompson selam Micro-K 8 MEQ Oral Capsule Extended Release [...] 1 QD TAKE 1 TABLET DAILY. [facility] Amiodarone HCl - 100 MG Oral [...] CHAUDHARY M.D. 1 a day since [facility] Lycopene 10 MG Oral Capsule Lycopene 10 MG Oral Capsule Yes 1 Q0.5D TAKE 1 CAPSULE TWICE DAILY [facility] Melatonin 10 MG Oral Tablet Melatonin 10 MG Oral Tablet Yes QD take 5- 10mg qd [facility] Amiodarone Hcl Amiodarone Hcl Yes [facility] Atorvastatin Calcium (Lipitor) 20 Mg TABLET Atorvastat in Calcium (Lipitor) 20 Mg TABLET Yes [facility] Carvedilol Carvedilol Yes [facility] Hydrocodone Bit/Acetaminophen (Hydrocodon-Acetaminophn 10-325) 1 Each TABLET Hydrocodone Bit/Acetaminophen (Hydrocodon-Acetaminophn 10-325) 1 Each TABLET Yes [facility] Trazodone Hcl Trazodone Hcl Yes [facility] Avanafil (Stendra) 200 Mg TABLET Avanafil (Stendra) 200 Mg TABLE T 2019-12-02 00:00:00 [facility] Insulin Aspart (Novolog) 100 Units/1 Ml INJ Insulin As part (Novolog) 100 Units/1 Ml INJ 2019-12-02 00:00:00 [facility] Lycopene Lycopene 2019-12-02 00:00:00 [facility] Tamsulosin Tamsulosin 2019-12-02 00:00:00 [facility] Testosterone Enanthate Testosterone Enanthate 2019-12-02 00:00:00 [facility] Tizanidine Hcl Tizanidine Hcl 2019-12-02 00:00:00 [facility] Immunizations Ordered Immunization Name Filled Immunization Name Date Status Comments Source Fluzone Quadrivalent 0.5 ML Intramuscular Suspension Prefill ed Syringe 2017-07-30 00:00:00 Completed [facility] Prevnar 13 Intramuscular Suspension 2016-09-12 12:20:00 Co mpleted [facility] Fluzone High-Dose 0.5 ML Intramuscular Suspension Prefilled Syringe 2016-09-12 08:35:00 Completed [facility] Fluzone High-Dose 0.5 ML Intramuscular Suspension Prefilled Syringe 2015-09-17 08:52:00 Completed [facility] Fluzone INJ 2014-08-20 08:57:00 Completed [facility] Influenza 2012-09-30 00:00:00 Completed [facility] Vital Signs Vital Name Observation Time Observation Value Comments Source Weight 2020-04-28 03:12:00 174 [lb_av] [facility] BMI (Body Mass Index) 2020-04-28 03:12:00 25.7 kg/m2 [facility] Weight 2020-03-24 02:49:00 174 [lb_av] [facility] BMI (Body Mass Index) 2020-03-24 02:49:00 25.7 kg/m2 [facility] Body Temperature 2019-12-05 15:34:00 96.9 [degF] [facility] Weight 2018-02-13 11:00:00 178.9 [lb_av] [facility] Body Mass Index Calculated 2018-02-13 11:00:00 26.42 kg/m2 [facility] BP Systolic 2018-01-29 12:38:00 138 mm[Hg] Location: SONAL Becerril on: Sitting [facility] BP Diastolic 2018-01-29 12:38:00 68 mm[Hg] Location: SONAL Becerril on: Sitting [facility] Height 2018-01-29 12:38:00 69 [in_us] [facility] Weight 2018-01-29 12:38:00 183 [lb_av] [facility] Body Mass Index Calculated 2018-01-29 12:38:00 27.02 kg/m2 [facility] Temperature 2018-01-29 12:38:00 98.7 [degF] Method: Temporal [facility] Respiration Rate 2018-01-29 12:38:00 16 /min [facility] Heart Rate 2018-01-29 12:38:00 93 /[facility] BP Systolic 2018-01-21 15:10:00 132 mm[Hg] [facility] BP Diastolic 2018-01-21 15:10:00 70 mm[Hg] [facility] BP Systolic 2018-01-21 14:53:00 117 mm[Hg] Location: SOTOE; Positi on: Sitting [facility] BP Diastolic 2018-01-21 14:53:00 62 mm[Hg] Location: LAURA; Positi on: Sitting [facility] Height 2018-01-21 14:53:00 69 [in_us] [facility] Weight 2018-01-21 14:53:00 175.5625 [lb_av] [facility] Body Mass Index Calculated 2018-01-21 14:53:00 25.93 kg/m2 [facility] Heart Rate 2018-01-21 14:53:00 86 /min [facility] BP Systolic 2018-01-14 15:38:00 143 mm[Hg] Location: LAURA; Positi on: Sitting [facility] BP Diastolic 2018-01-14 15:38:00 74 mm[Hg] Location: LAURA; Positi on: Sitting [facility] Height 2018-01-14 15:38:00 69 [in_us] [facility] Weight 2018-01-14 15:38:00 183 [lb_av] [facility] Body Mass Index Calculated 2018-01-14 15:38:00 27.02 kg/m2 [facility] Temperature 2018-01-14 15:38:00 97.9 [degF] Method: Temporal [facility] Respiration Rate 2018-01-14 15:38:00 16 /min [facility] Heart Rate 2018-01-14 15:38:00 95 /min [facility] Weight 2018-01-02 10:59:00 184 [lb_av] [facility] Body Mass Index Calculated 2018-01-02 10:59:00 27.17 kg/m2 [facility] BP Systolic 2017-11-30 09:33:00 144 mm[Hg] [facility] BP Diastolic 2017-11-30 09:33:00 64 mm[Hg] [facility] BP Systolic 2017-11-30 09:11:00 141 mm[Hg] Location: SONAL Positi on: Sitting [facility] BP Diastolic 2017-11-30 09:11:00 64 mm[Hg] Location: LAURA; Positi on: Sitting [facility] Height 2017-11-30 09:11:00 69 [in_us] [facility] Weight 2017-11-30 09:11:00 179.375 [lb_av] [facility] Body Mass Index Calculated 2017-11-30 09:11:00 26.49 kg/m2 [facility] Heart Rate 2017-11-30 09:11:00 84 /min [facility] Procedures Procedure Date / Time Performed Performing Clinician Sour e INSERTION OF FEEDING DEVICE INTO STOMACH, PERC APPROACH 00:00:00 [facility] CT of abdomen and pelvis without contrast 2019-11-30 00:00:00 [facility] INSERTION OF FEEDING DEVICE INTO STOMACH, VIA OPENING 2019-11-28 00:00:00 [facility] ASSISTANCE WITH RESPIRATORY VENTILATION, <24 HRS, CPAP 8 00:00:00 [facility] X-ray of chest, two views 2019-11-25 00:00:00 LUCÍA SWEENEY CH I [facility]] T4, FREE 2017-11-30 00:00:00 [place] [facility] [[facility]] VITAMIN D, 25-HYDROXY, LC/MS/MS 2017-11-30 00:00:00 [facility] [[facility]] CMP W/EGFR 2017-11-30 00:00:00 [facility] [[facility]] TSH, 3RD GENERATION 2017-11-30 00:00:00 [facility] of [facility]G [facility] History of Knee Replacement [facility] History of Hemorrhoidectomy [facility] History of Implantable Cardioverter-Defibrillator [facility] Plan of Care Planned Activity Planned Date Details Comments Source Future Scheduled Test 2014-02-13 11:45:09 Plan of Care [code = 1877 6-5] [facility] Scheduled Test 2014 22:30:23 Plan of Care [code = 1877 6-5] [facility] Scheduled Test 2014-02-05 23:00:13 Plan of Care [code = 1877 6-5] [facility] Scheduled Test 2013-08-19 18:00:30 Plan of Care [code = 1877 6-5] [facility] Sarah Catheter Care [facility] Encounters Start Date/Time End Date/Time En[facility] Ad[facility] ID Source 2019-09-17 11:56:45 Outpatient [facility] [id number] [facility] 2020-04-28 03:11:00 2020-04-28 04:00:00 Departed Emergency Room [facility] [facility] [id number] [facility] 2020-03-24 02:44:00 2020-03-24 04:16:00 Departed Emergency Room [facility] [id number] [facility] 2019-11-24 10:16:00 2019-12-05 19:51:00 Discharged Inpatient 1 EDGARDO ALVARADO [facility] [id number] [facility] 2019-06-19 10:32:00 2019-06-19 10:32:00 Outpatient MHSE MHSE [id number] [facility] 2019-06-06 23:46:00 2019-06-07 02:01:00 Departed Emergency Room 1 TODD ALICEA [facility] [id number] [facility] 2019-05-29 09:08:00 2019-05-29 09:08:00 Outpatient MHSE MHSE [id number] [facility] 2019-04-24 08:39:00 2019-04-24 08:39:00 Outpatient MHSE MHSE [id number] [facility] 2018-02-13 10:00:00 2018-02-13 10:00:00 Appointment; GEM YODER RD WRIGHT, TISH, RD [facility] [id number] [facility] 2018-01-29 12:30:00 2018-01-29 12:30:00 Appointment; JUJU RODRIGUEZ D.O. YEH, SHAO-CHUN, D.O. [facility] [id number] [facility] 2018-01-21 14:45:00 2018-01-21 14:45:00 Appointment; HELIO CHAUDHARY M .D. CHIU, ALICE, M.D. UTP [facility] [id number] [facility] 2018-01-14 15:45:00 2018-01-14 15:45:00 Appointment; JUJU RODRIGUEZ D.O. YEH, SHAO-CHUN, D.O. [facility] [id number] [facility] 2018-01-02 10:00:00 2018-01-02 10:00:00 Appointment; GEM YODER RD WRIGHT, TISH, RD UTP [facility] [id number] [facility] 2017-11-30 09:00:00 2017-11-30 09:00:00 Appointment; HELIO CHAUDHARY M .D. CHIU, ALICE, M.D. UTP [facility] [id number] [facility] 2017-08-07 08:30:00 2017-08-07 08:30:00 Appointment; HELIO CHAUDHARY M .D. CHIU, ALICE, M.D. UTP [facility] [id number] [facility] 2017-07-30 12:45:00 2017-07-30 12:45:00 Appointment; JUJU RODRIGUEZ D.O. YEH, SHAO-CHUN, D.O. UTP UTP [id number] [facility] 2017-06-07 09:30:00 2017-06-07 09:30:00 Appointment; JUJU RODRIGUEZ D.O. YEH, SHAO-CHUN, D.O. UTP UTP [id number] [facility] 2017-05-29 14:30:00 2017-05-29 14:30:00 Appointment; JUJU RODRIGUEZ D.O. YEH, SHAO-LOYD, D.O. UTP UTP [id number] [facility] 2017-04-10 08:30:00 2017-04-10 08:30:00 Appointment; HELIO CHAUDHARY M .D. CHIU, ALICE, M.D. UTP UTP [id number] [facility] 2017-03-26 15:00:00 2017-03-26 15:00:00 Appointment; JUJU RODRIGUEZ D.O. YEH, SHAO-CHUN, D.O. UTP UTP [id number] [facility] 2016-12-27 08:30:00 2016-12-27 08:30:00 Appointment; HELIO CHAUDHARY M .D. CHIU, ALICE, M.D. UTP UTP [id number] [facility] 2016-09-12 11:00:00 2016-09-12 11:00:00 Appointment; JIM CHOPRA M.D. PERKISON, WILLIAM, M.D. UTP UTP [id number] [facility] 2016-09-12 08:30:00 2016-09-12 08:30:00 Appointment; HELIO CHAUDHARY M .D. CHIU, ALICE, M.D. UTP UTP [id number] [facility] 2016-05-17 08:00:00 2016-05-17 08:00:00 Appointment; HELIO CHAUDHARY M .D. CHIU, ALICE, M.D. UTP UTP [id number] [facility] 2016-01-05 08:00:00 2016-01-05 08:00:00 Appointment; HELIO CHAUDHARY M .D. CHIU, ALICE, M.D. UTP UTP [id number] [facility] 2015-10-18 13:00:00 2015-10-18 13:00:00 Appointment; Vish Boston M.D . Wang, Run, M.D. UTP UTP [id number] [facility] 2014-02-13 06:45:10 2014-02-13 06:45:09 Outpatient MHIE MHIE [id number] 2014 17:30:24 2014 17:30:23 Outpatient MHIE MHIE [id number] 2014-02-05 18:00:14 2014-02-05 18:00:13 Outpatient IE ANA [id number] 2014-02-03 07:45:26 2014-02-03 07:45:25 Outpatient IE ANA [id number] 2013-12-04 11:35:31 2013-12-04 11:35:30 Outpatient IE ANA [id number] 2013-10-30 07:15:23 2013-10-30 07:15:22 Outpatient IE ANA [id number] 2013-08-20 07:00:06 2013-08-20 07:00:06 Outpatient IE ANA [id number] 2013-08-19 13:00:31 2013-08-19 13:00:30 Outpatient ANA ANA [id number] 2013-08-18 06:30:07 2013-08-18 06:30:06 Outpatient ANA SANDRAANA [id number] 2013-08-15 17:30:21 2013-08-15 17:30:20 Outpatient ANA ANA [id number] 2013-05-14 13:36:14 2013-05-14 13:35:54 Outpatient ANA ANA [id number] Results Test Description Test Time Test Comments Results Result Comments Source Bedside Glucose 2019-12-05 11:58:00 Test Item Bedside Glucose (test code = 10208-5) 194 70-120 H Meter ID: [id number] [facility] Total Cells Gjsqnrv0313-71-40 09:22:00* Test Item Value Reference Range Interpretation Comments Differential Total Cells Counted (test code = Differen tial Total Cells Counted) 100 [facility]en[facility]utrophils % (Manual)2019-12-05 09:22:00 * Test Item Value Reference Range Interpretation Comments Neutrophils % (Manual) (test code = 56948-8) 87 40-74 H [facility]enLymphocytes % (Manual)2019-12-05 09:22:00 * Test Item Value Reference Range Interpretation Comments Lymphocytes % (Manual) (test code = 737-7) 9 19-48 L [facility]enMonocytes % (Manual)2019-12-05 09:22:00* Test Item Value Reference Range Interpretation Comments Monocytes % (Manual) (test code = 744-3) 4 3.4-9.0 [facility]enPlatelet Ycuhdadf1217-16-53 09:22:00* Test Item Value Reference Range Interpretation Comments Platelet Estimate (test code = 22272-2) ADEQUATE [facility]lingenPlatelet Morphology Ojynqol3016-19-42 09:22:00* Test Item Value Reference Range Interpretation Comments Platelet Morphology Comment (test code = 23133-7) NORMAL [facility]enRed Cell Morphology Xzvzitp6536-66-93 09:22:00* Test Item Value Reference Range Interpretation Comments Red Cell Morphology Comment (test code = 6742-1) [facility] Jredc5098-02-42 04:27:00* Test Item Value Reference Range Interpretation Comments Sodium Level (test code = 2951-2) 147 136-145 H [facility]enPotassium Wldws7673-62-67 04:27:00* Test Item Value Reference Range Interpretation Comments Potassium Level (test code = 2823-3) 4.8 3.5-5.1 [facility]enChloride Dosld5851-06-07 04:27:00* Test Item Value Reference Range Interpretation Comments Chloride Level (test code = 2075-0) 111 98-107 H [facility] HarlingenCarbon Dioxide Iwnpl2328-03-09 04:27:00* Test Item Value Reference Range Interpretation Comments Carbon Dioxide Level (test code = 2028-9) 27 22-29 [facility] HarlingenAnion Tic0850-70-23 04:27:00* Test Item Value Reference Range Interpretation Comments Anion Gap (test code = 60210-3) 13.8 8-16 [facility]enBlood Urea Pysukzuy8739-71-32 04:27:00* Test Item Value Reference Range Interpretation Comments Blood Urea Nitrogen (test code = 3094-0) 39 7-26 H [facility]lingenCreatinine2020-01-17 04:27:00* Test Item Value Reference Range Interpretation Comments Creatinine (test code = 2160-0) 1.35 0.72-1.25 H [facility]enBUN/Creatinine Psgzv1019-25-47 04:27:00* Test Item Value Reference Range Interpretation Comments BUN/Creatinine Ratio (test code = 3097-3) 29 6-25 H [facility] HarlingenEstimat Glomerular Filtration Rate 2019-12-05 04:27:00* Test Item Value Reference Range Interpretation Comments Estimat Glomerular Filtration Rate (test code = 927769793) 50 >60 L Ranges were taken from the National Kidney Disease Education Program and the [facility] Kidney Foundation literature.Reference ranges:60 or greater: Uxsajx54-58 ( for 3 consecutive months): Chronic kidney disease 15 or less: Kidney failureCHI [facility]cosGlucose Ckgcr4210-13-65 04:27:00* Test Item Value Reference Range Interpretation Comments Glucose Level (test code = IMQ5809) 217 74-118 H [facility]enCalcium Jiohl8816-22-87 04:27:00* Test Item Value Reference Range Interpretation Comments Calcium Level (test code = 96108-4) 8.2 8.4-10.2 L [facility] HarlingenWhite Blood Acclj6147-48-95 04:25:00* Test Item Value Reference Range Interpretation Comments White Blood Count (test code = 6690-2) 8.10 4.8-10.8 [facility]enRed Blood Qxhrt4741-85-28 04:25:00* Test Item Value Reference Range Interpretation Comments Red Blood Count (test code = 789-8) 3.50 4.3-5.7 L [facility]enHemoglobin2020-01-17 04:25:00* Test Item Value Reference Range Interpretation Comments Hemoglobin (test code = 94535-3) 10.9 14.0-18.0 L [facility]enHematocrit2020-01-17 04:25:00* Test Item Value Reference Range Interpretation Comments Hematocrit (test code = 4544-3) 36.0 38.2-49.6 L [facility] HarlingenMean Corpuscular Headqy8437-18-13 04:25:00* Test Item Value Reference Range Interpretation Comments Mean Corpuscular Volume (test code = 787-2) 102.9 81-99 H [facility] HarlingenMean Corpuscular Cbsevzkidx1201-10-63 04:25:00* Test Item Value Reference Range Interpretation Comments Mean Corpuscular Hemoglobin (test code = 785-6) 31.1 28-32 [facility]lingenMean Corpuscular Hemoglobin Concent 2019-12-05 04:25:00* Test Item Value Reference Range Interpretation Comments Mean Corpuscular Hemoglobin Concent (test code = 786-4) 30.3 31-35 L [facility] Har[facility]enRed Cell Distribution Iuajf3643-79-16 04:25:00* Test Item Value Reference Range Interpretation Comments Red Cell Distribution Width (test code = 11267-9) 15.8 11.7 -14.4 H [facility] HarlingenPlatelet Xuhar9451-97-97 04:25:00* Test Item Value Reference Range Interpretation Comments Platelet Count (test code = 777-3) 197 140-360 [facility]enNeutrophils (%) (Auto)2019-12-05 04:25:00 * Test Item Value Reference Range Interpretation Comments Neutrophils (%) (Auto) (test code = 29326-6) 81.9 38.7-80.0 H [facility]lingenLymphocytes (%) (Auto)2019-12-05 04:25:00 * Test Item Value Reference Range Interpretation Comments Lymphocytes (%) (Auto) (test code = 736-9) 8.8 18.0-39.1 L [facility]enMonocytes (%) (Auto)2019-12-05 04:25:00* Test Item Value Reference Range Interpretation Comments Monocytes (%) (Auto) (test code = 5905-5) 5.4 4.4-11.3 [facility]enEosinophils (%) (Auto)2019-12-05 04:25:00 * Test Item Value Reference Range Interpretation Comments Eosinophils (%) (Auto) (test code = 713-8) 0.2 0.0-6.0 [facility]enBasophils (%) (Auto)2019-12-05 04:25:00* Test Item Value Reference Range Interpretation Comments Basophils (%) (Auto) (test code = 706-2) 0.2 0.0-1.0 [facility] HarlingenIM GRANULOCYTES %2019-12-05 04:25:00* Test Item Value Reference Range Interpretation Comments IM GRANULOCYTES % (test code = IM GRANULOCYTES %) 3.5 0.0- 1.0 H [facility]enNeutrophils # (Auto)2019-12-05 04:25:00* Test Item Value Reference Range Interpretation Comments Neutrophils # (Auto) (test code = 751-8) 6.6 2.1-6.9 [facility]enLymphocytes # (Auto)2019-12-05 04:25:00* Test Item Value Reference Range Interpretation Comments Lymphocytes # (Auto) (test code = 52208-6) 0.7 1.0-3.2 L [facility]enMonocytes # (Auto)2019-12-05 04:25:00* Test Item Value Reference Range Interpretation Comments Monocytes # (Auto) (test code = 742-7) 0.4 0.2-0.8 [facility]enEosinophils # (Auto)2019-12-05 04:25:00* Test Item Value Reference Range Interpretation Comments Eosinophils # (Auto) (test code = 711-2) 0.0 0.0-0.4 [facility]enBasophils # (Auto)2019-12-05 04:25:00* Test Item Value Reference Range Interpretation Comments Basophils # (Auto) (test code = 704-7) 0.0 0.0-0.1 [facility] HarlingenAbsolute Immature Granulocyte (auto 2019-12-05 04:25:00* Test Item Value Reference Range Interpretation Comments Absolute Immature Granulocyte (auto (leatha t code = Absolute Immature Granulocyte (auto) 0.28 0-0.1 H [facility] HarlingenBlood leukocytes automated count (number/volume)2019-12-05 02:30:00* Test Item Value Reference Range Interpretation Comments White Blood Count (test code = 6690-2) 8.10 4.8-10.8 [facility] HarlingenBlood erythrocytes automated count (number/volume)2019-12-05 02:30:00* Test Item Value Reference Range Interpretation Comments Red Blood Count (test code = 789-8) 3.50 4.3-5.7 [facility]enBlood hemoglobin measurement (moles/volume)2019-12-05 02:30:00* Test Item Value Reference Range Interpretation Comments Hemoglobin (test code = 34486-1) 10.9 14.0-18.0 [facility] HarlingenAutomated blood hematocrit (volume fraction)2019-12-05 02:30:00* Test Item Value Reference Range Interpretation Comments Hematocrit (test code = 4544-3) 36.0 38.2-49.6 [facility] HarlingenAutomated erythrocyte mean corpuscular xekvah5004-71-22 02:30:00* Test Item Value Reference Range Interpretation Comments Mean Corpuscular Volume (test code = 787-2) 102.9 81-99 [facility] HarlingenAutomated erythrocyte mean corpuscular hemoglobin (mass per erythrocyte)2019-12-05 02:30:00* Test Item Value Reference Range Interpretation Comments Mean Corpuscular Hemoglobin (test code = 785-6) 31.1 28-32 [facility] HarlingenAutomated erythrocyte mean corpuscular hemoglobin concentration measurement (mass/volume)2019-12-05 02:30:00* Test Item Value Reference Range Interpretation Comments Mean Corpuscular Hemoglobin Concent (test code = 786-4) 30.3 31-35 [facility] HarlingenRDW IreZk-Uec9961-33-17 02:30:00* Test Item Value Reference Range Interpretation Comments Red Cell Distribution Width (test code = 90332-9) 15.8 11.7 -14.4 [facility] HarlingenAutomated blood platelet count (count/volume)2019-12-05 02:30:00* Test Item Value Reference Range Interpretation Comments Platelet Count (test code = 777-3) 197 140-360 [facility] HarlingenAutomated blood segmented neutrophil count as percentage of total ogyyenpiln4154-24-17 02:30:00* Test Item Value Reference Range Interpretation Comments Neutrophils (%) (Auto) (test code = 01244-2) 81.9 38.7-80.0 [facility] HarlingenAutomated blood lymphocyte count as percentage ot total lwrffowqhj6377-80-10 02:30:00* Test Item Value Reference Range Interpretation Comments Lymphocytes (%) (Auto) (test code = 736-9) 8.8 18.0-39.1 [facility] HarlingenAutomated blood monocyte count as percentage of total fmpzrsgwmt8640-61-96 02:30:00* Test Item Value Reference Range Interpretation Comments Monocytes (%) (Auto) (test code = 5905-5) 5.4 4.4-11.3 [facility] count as percentage of total bpzbrpficj4081-14-84 02:30:00* Test Item Value Reference Range Interpretation Comments Eosinophils (%) (Auto) (test code = 713-8) 0.2 0.0-6.0 [facility]lingenAutomated blood basophil count as percentage of total blnsoxzsam1058-17-81 02:30:00* Test Item Value Reference Range Interpretation Comments Basophils (%) (Auto) (test code = 706-2) 0.2 0.0-1.0 [facility] HarlingenFluoroscopic procedure less than one hour rdzypqnh2066-38-23 02:30:00* Test Item Value Reference Range Interpretation Comments IM GRANULOCYTES % (test code = IM GRANULOCYTES %) 3.5 0.0- 1.0 [facility]lingenAutomated blood neutrophil count 2019-12-05 02:30:00* Test Item Value Reference Range Interpretation Comments Neutrophils # (Auto) (test code = 751-8) 6.6 2.1-6.9 [facility]enBlood lymphocytes count (number/volume) 2019-12-05 02:30:00* Test Item Value Reference Range Interpretation Comments Lymphocytes # (Auto) (test code = 77136-1) 0.7 1.0-3.2 [facility]enBl[facility] monocytes automated count (number/volume)2019-12-05 02:30:00* Test Item Value Reference Range Interpretation Comments Monocytes # (Auto) (test code = 742-7) 0.4 0.2-0.8 [facility] HarlingenAutomated blood eosinophil count 2019-12-05 02:30:00* Test Item Value Reference Range Interpretation Comments Eosinophils # (Auto) (test code = 711-2) 0.0 0.0-0.4 [facility] basophil count (count/volume)2019-12-05 02:30:00* Test Item Value Reference Range Interpretation Comments Basophils # (Auto) (test code = 704-7) 0.0 0.0-0.1 [facility] HarlingenFluoroscopic procedure less than one hour wcjqxffn5836-32-17 02:30:00* Test Item Value Reference Range Interpretation Comments Absolute Immature Granulocyte (auto (leatha t code = Absolute Immature Granulocyte (auto) 0.28 0-0.1 [facility] HarlingenFluoroscopic procedure less than one hour ksybjtii9095-55-29 02:30:00* Test Item Value Reference Range Interpretation Comments Differential Total Cells Counted (test code = Differen tial Total Cells Counted) 100 [facility] blood neutrophils/100 leukocytes 2019-12-05 02:30:00* Test Item Value Reference Range Interpretation Comments Neutrophils % (Manual) (test code = 24967-9) 87 40-74 [facility] blood lymphocytes/100 leukocytes 2019-12-05 02:30:00* Test Item Value Reference Range Interpretation Comments Lymphocytes % (Manual) (test code = 737-7) 9 19-48 [facility] blood monocytes/100 leukocytes 2019-12-05 02:30:00* Test Item Value Reference Range Interpretation Comments Monocytes % (Manual) (test code = 744-3) 4 3.4-9.0 [facility] platelets count by estimate (number/volume)2019-12-05 02:30:00* Test Item Value Reference Range Interpretation Comments Platelet Estimate (test code = 25962-1) ADEQUATE [facility] HarlingenPlatelet edflrevnwk0012-99-48 02:30:00* Test Item Value Reference Range Interpretation Comments Platelet Morphology Comment (test code = 39358-6) NORMAL [facility] HarlingenRB pxawngfhkq5691-26-34 02:30:00* Test Item Value Reference Range Interpretation Comments Red Cell Morphology Comment (test code = 6742-1) NORMAL [facility]ererum or plasma sodium measurement (moles/volume)2019-12-05 02:30:00* Test Item Value Reference Range Interpretation Comments Sodium Level (test code = 2951-2) 147 136-145 [facility]ererum or plasma potassium measurement (moles/volume)2019-12-05 02:30:00* Test Item Value Reference Range Interpretation Comments Potassium Level (test code = 2823-3) 4.8 3.5-5.1 [facility] Centererum or plasma chloride measurement (moles/volume)2019-12-05 02:30:00* Test Item Value Reference Range Interpretation Comments Chloride Level (test code = 2075-0) 111 98-107 [facility] Centererum or plasma carbon dioxide, total measurement (moles/volume)2019-12-05 02:30:00* Test Item Value Reference Range Interpretation Comments Carbon Dioxide Level (test code = 2028-9) 27 22-29 [facility]ererum or plasma anion xgi3450-44-35 02:30:00* Test Item Value Reference Range Interpretation Comments Anion Gap (test code = 05797-4) 13.8 8-16 [facility]ererum or plasma urea nitrogen measurement (mass/volume)2019-12-05 02:30:00* Test Item Value Reference Range Interpretation Comments Blood Urea Nitrogen (test code = 3094-0) 39 7-26 [facility]ererum or plasma creatinine measurement (mass/volume)2019-12-05 02:30:00* Test Item Value Reference Range Interpretation Comments Creatinine (test code = 2160-0) 1.35 0.72-1.25 [facility] Centererum or plasma urea nitrogen/creatinine mass aahse3541-55-98 02:30:00* Test Item Value Reference Range Interpretation Comments BUN/Creatinine Ratio (test code = 3097-3) 29 6-25 [facility]lingenEstimated glomerular filtration rate (GFR) hksepvlqmnuap9100-63-60 02:30:00* Test Item Value Reference Range Interpretation Comments Estimat Glomerular Filtration Rate (test code = 354573846) 50 >60 Ranges were taken from the National Kidney Disease Education Program and the [facility] literature.Reference ranges:60 or greater: Ecrqod24-21 ( for 3 consecutive months): Chronic kidney disease 15 or less: Kidney failureVal[facility] HarlingenGlucose xlnfbwoawto9800-07-90 02:30:00* Test Item Value Reference Range Interpretation Comments Glucose Level (test code = MAP2982) 217 74-118 [facility]ererum or plasma calcium measurement (mass/volume)2019-12-05 02:30:00* Test Item Value Reference Range Interpretation Comments Calcium Level (test code = 59145-6) 8.2 8.4-10.2 [facility]enBlood leukocytes automated count (number/volume)2019-12-05 02:30:00* Test Item Value Reference Range Interpretation Comments White Blood Count (test code = 6690-2) 8.10 4.8-10.8 [facility] HarlingenBlood erythrocytes automated count (number/volume)2019-12-05 02:30:00* Test Item Value Reference Range Interpretation Comments Red Blood Count (test code = 789-8) 3.50 4.3-5.7 [facility]enBlood hemoglobin measurement (moles/volume)2019-12-05 02:30:00* Test Item Value Reference Range Interpretation Comments Hemoglobin (test code = 11030-7) 10.9 14.0-18.0 [facility] HarlingenAutomated blood hematocrit (volume fraction)2019-12-05 02:30:00* Test Item Value Reference Range Interpretation Comments Hematocrit (test code = 4544-3) 36.0 38.2-49.6 [facility] HarlingenAutomated erythrocyte mean corpuscular nnjzvb8683-24-40 02:30:00* Test Item Value Reference Range Interpretation Comments Mean Corpuscular Volume (test code = 787-2) 102.9 81-99 [facility] HarlingenAutomated erythrocyte mean corpuscular hemoglobin (mass per erythrocyte)2019-12-05 02:30:00* Test Item Value Reference Range Interpretation Comments Mean Corpuscular Hemoglobin (test code = 785-6) 31.1 28-32 [facility] HarlingenAutomated erythrocyte mean corpuscular hemoglobin concentration measurement (mass/volume)2019-12-05 02:30:00* Test Item Value Reference Range Interpretation Comments Mean Corpuscular Hemoglobin Concent (test code = 786-4) 30.3 31-35 [facility] HarlingenRDW PtrIn-Bpu4954-52-17 02:30:00* Test Item Value Reference Range Interpretation Comments Red Cell Distribution Width (test code = 15095-6) 15.8 11.7 -14.4 [facility] HarlingenAutomated blood platelet count (count/volume)2019-12-05 02:30:00* Test Item Value Reference Range Interpretation Comments Platelet Count (test code = 777-3) 197 140-360 [facility] HarlingenAutomated blood segmented neutrophil count as percentage of total rhiekzxfsa9081-91-72 02:30:00* Test Item Value Reference Range Interpretation Comments Neutrophils (%) (Auto) (test code = 64860-1) 81.9 38.7-80.0 [facility] HarlingenAutomated blood lymphocyte count as percentage ot total cbrhdrwerl7887-00-68 02:30:00* Test Item Value Reference Range Interpretation Comments Lymphocytes (%) (Auto) (test code = 736-9) 8.8 18.0-39.1 [facility] HarlingenAutomated blood monocyte count as percentage of total exmjmpyngw4121-15-13 02:30:00* Test Item Value Reference Range Interpretation Comments Monocytes (%) (Auto) (test code = 5905-5) 5.4 4.4-11.3 [facility] HarlingenAutomated blood eosinophil count as percentage of total exvcwntrre1150-96-71 02:30:00* Test Item Value Reference Range Interpretation Comments Eosinophils (%) (Auto) (test code = 713-8) 0.2 0.0-6.0 [facility]lingenAutomated blood basophil count as percentage of total vnybxpcevq4983-92-36 02:30:00* Test Item Value Reference Range Interpretation Comments Basophils (%) (Auto) (test code = 706-2) 0.2 0.0-1.0 [facility]enFluoroscopic procedure less than one hour nbjcmezz8689-82-09 02:30:00* Test Item Value Reference Range Interpretation Comments IM GRANULOCYTES % (test code = IM GRANULOCYTES %) 3.5 0.0- 1.0 [facility]lingenAutomated blood neutrophil count 2019-12-05 02:30:00* Test Item Value Reference Range Interpretation Comments Neutrophils # (Auto) (test code = 751-8) 6.6 2.1-6.9 [facility]enBlood lymphocytes count (number/volume) 2019-12-05 02:30:00* Test Item Value Reference Range Interpretation Comments Lymphocytes # (Auto) (test code = 18234-1) 0.7 1.0-3.2 [facility]enBlood monocytes automated count (number/volume)2019-12-05 02:30:00* Test Item Value Reference Range Interpretation Comments Monocytes # (Auto) (test code = 742-7) 0.4 0.2-0.8 [facility]enAutomated blood eosinophil count 2019-12-05 02:30:00* Test Item Value Reference Range Interpretation Comments Eosinophils # (Auto) (test code = 711-2) 0.0 0.0-0.4 [facility]enAutomated blood basophil count (count/volume)2019-12-05 02:30:00* Test Item Value Reference Range Interpretation Comments Basophils # (Auto) (test code = 704-7) 0.0 0.0-0.1 [facility]enFluoroscopic procedure less than one hour vyobxgea6347-79-09 02:30:00* Test Item Value Reference Range Interpretation Comments Absolute Immature Granulocyte (auto (leatha t code = Absolute Immature Granulocyte (auto) 0.28 0-0.1 [facility]enFluoroscopic procedure less than one hour kdumzbao5035-52-22 02:30:00* Test Item Value Reference Range Interpretation Comments Differential Total Cells Counted (test code = Jarocho webster Total Cells Counted) 100 [facility] leukocytes 2019-12-05 02:30:00* Test Item Value Reference Range Interpretation Comments Neutrophils % (Manual) (test code = 13134-1) 87 40-74 [facility]100 leukocytes 2019-12-05 02:30:00* Test Item Value Reference Range Interpretation Comments Lymphocytes % (Manual) (test code = 737-7) 9 19-48 [facility] blood monocytes/100 leukocytes 2019-12-05 02:30:00* Test Item Value Reference Range Interpretation Comments Monocytes % (Manual) (test code = 744-3) 4 3.4-9.0 [facility]enBlood platelets count by estimate (number/volume)2019-12-05 02:30:00* Test Item Value Reference Range Interpretation Comments Platelet Estimate (test code = 49075-5) ADEQUATE [facility] HarlingenPlatelet luglsnufis4826-88-68 02:30:00* Test Item Value Reference Range Interpretation Comments Platelet Morphology Comment (test code = 75971-8) NORMAL [facility] HarlingenRBC mwergfaqbw4633-72-37 02:30:00* Test Item Value Reference Range Interpretation Comments Red Cell Morphology Comment (test code = 6742-1) [facility]AL [facility] sodium measurement (moles/volume)2019-12-05 02:30:00* Test Item Value Reference Range Interpretation Comments Sodium Level (test code = 2951-2) 147 136-145 [facility] potassium measurement (moles/volume)2019-12-05 02:30:00* Test Item Value Reference Range Interpretation Comments Potassium Level (test code = 2823-3) 4.8 3.5-5.1 [facility] chloride measurement (moles/volume)2019-12-05 02:30:00* Test Item Value Reference Range Interpretation Comments Chloride Level (test code = 2075-0) 111 98-107 [facility] plasma carbon dioxide, total measurement (moles/volume)2019-12-05 02:30:00* Test Item Value Reference Range Interpretation Comments Carbon Dioxide Level (test code = 2028-9) 27 22-29 [facility] or plasma anion hco9603-13-60 02:30:00* Test Item Value Reference Range Interpretation Comments Anion Gap (test code = 26000-5) 13.8 8-16 [facility] urea nitrogen measurement (mass/volume)2019-12-05 02:30:00* Test Item Value Reference Range Interpretation Comments Blood Urea Nitrogen (test code = 3094-0) 39 7-26 [facility] plasma creatinine measurement (mass/volume)2019-12-05 02:30:00* Test Item Value Reference Range Interpretation Comments Creatinine (test code = 2160-0) 1.35 0.72-1.25 [facility] plasma urea nitrogen/creatinine mass xrtug4762-89-82 02:30:00* Test Item Value Reference Range Interpretation Comments BUN/Creatinine Ratio (test code = 3097-3) 29 6-25 [facility]lingenEstimated glomerular filtration rate (GFR) vowrzlhyqmcqx6900-15-33 02:30:00* Test Item Value Reference Range Interpretation Comments Estimat Glomerular Filtration Rate (test code = 810594572) 50 >60 Ranges were taken from the National Kidney Disease Education Program and the [facility] Kidney Foundation literature.Reference ranges:60 or greater: Lrsewk78-03 ( for 3 consecutive months): Chronic kidney disease 15 or less: Kidney failureVal[facility] – HarlingenGlucose wgdujiyocgh3476-88-65 02:30:00* Test Item Value Reference Range Interpretation Comments Glucose Level (test code = XMR2680) 217 74-118 [facility] or plasma calcium measurement (mass/volume)2019-12-05 02:30:00* Test Item Value Reference Range Interpretation Comments Calcium Level (test code = 25912-4) 8.2 8.4-10.2 [facility] HarlingenCapillary blood glucose measurement by glucometer (mass/volume)2019-12-04 19:59:00* Test Item Value Reference Range Interpretation Comments Bedside Glucose (test code = 90994-6) 194 70-120 Meter ID: [id number] [facility] Medical Center – HarlingenCapillary blood glucose measurement by glucometer (mass/volume)2019-12-04 19:59:00* Test Item Value Reference Range Interpretation Comments Bedside Glucose (test code = 44686-0) 194 70-120 Meter ID: [id number] – HarlingenEosinophils % (Manual)2019-12-04 07:38:00* Test Item Value Reference Range Interpretation Comments Eosinophils % (Manual) (test code = 714-6) 1 0-7 [facility] HarlingenTotal Kkejrdnfx8767-37-63 06:01:00* Test Item Value Reference Range Interpretation Comments Total Bilirubin (test code = 1975-2) 0.4 0.2-1.2 [facility] HarlingenAspartate Amino Transf (AST/SGOT) 2019-12-04 06:01:00* Test Item Value Reference Range Interpretation Comments Aspartate Amino Transf (AST/SGOT) (test code = Aspartate Amino Transf (AST/SGOT)) 13 5-34 [facility]lingenAlanine Aminotransferase (ALT/SGPT) 2019-12-04 06:01:00* Test Item Value Reference Range Interpretation Comments Alanine Aminotransferase (ALT/SGPT) (test code = 1742-6) 12 0-55 [facility]enTotal Ysyoecp5875-27-23 06:01:00* Test Item Value Reference Range Interpretation Comments Total Protein (test code = 2885-2) 5.2 6.5-8.1 L [facility] HarlingenAlbumin2020-01-16 06:01:00* Test Item Value Reference Range Interpretation Comments Albumin (test code = 1751-7) 2.3 3.5-5.0 L [facility] HarlingenGlobulin2020-01-16 06:01:00* Test Item Value Reference Range Interpretation Comments Globulin (test code = 40996-5) 2.9 2.3-3.5 [facility]lingenAlbumin/Globulin Oochh1142-29-95 06:01:00 * Test Item Value Reference Range Interpretation Comments Albumin/Globulin Ratio (test code = 1759-0) 0.8 0.8-2.0 [facility] HarlingenAlkaline Ubrvbxhrkoh7392-63-85 06:01:00* Test Item Value Reference Range Interpretation Comments Alkaline Phosphatase (test code = 6768-6) 78 40-150 [facility] HarlingenManual blood eosinophil count as percentage of total sqyamjtsoz7623-04-63 04:00:00* Test Item Value Reference Range Interpretation Comments Eosinophils % (Manual) (test code = 714-6) 1 0-7 [facility] plasma total bilirubin measurement (mass/volume)2019-12-04 04:00:00* Test Item Value Reference Range Interpretation Comments Total Bilirubin (test code = 1975-2) 0.4 0.2-1.2 [facility] HarlingenFluoroscopic procedure less than one hour bbuvfuxi2944-08-76 04:00:00* Test Item Value Reference Range Interpretation Comments Aspartate Amino Transf (AST/SGOT) (test code = Aspartate Amino Transf (AST/SGOT)) 13 5-34 [facility]ererum or plasma alanine aminotransferase measurement (enzymatic activity/volume)2019-12-04 04:00:00* Test Item Value Reference Range Interpretation Comments Alanine Aminotransferase (ALT/SGPT) (test code = 1742-6) 12 0-55 [facility]ere[facility] or plasma protein measurement (mass/volume)2019-12-04 04:00:00* Test Item Value Reference Range Interpretation Comments Total Protein (test code = 2885-2) 5.2 6.5-8.1 [facility]ererum or plasma albumin measurement (mass/volume)2019-12-04 04:00:00* Test Item Value Reference Range Interpretation Comments Albumin (test code = 1751-7) 2.3 3.5-5.0 [facility]enPlasma globulin measurement (mass/volume) 2019-12-04 04:00:00* Test Item Value Reference Range Interpretation Comments Globulin (test code = 94021-6) 2.9 2.3-3.5 [facility]rum or plasma albumin/globulin mass fsxtx7350-60-56 04:00:00* Test Item Value Reference Range Interpretation Comments Albumin/Globulin Ratio (test code = 1759-0) 0.8 0.8-2.0 [facility]ererum or plasma alkaline phosphatase measurement (enzymatic activity/volume)2019-12-04 04:00:00* Test Item Value Reference Range Interpretation Comments Alkaline Phosphatase (test code = 6768-6) 78 40-150 [facility] HarlingenManual blood eosinophil count as percentage of total dtuopvdsau1792-57-18 04:00:00* Test Item Value Reference Range Interpretation Comments Eosinophils % (Manual) (test code = 714-6) 1 0-7 [facility]ererum or plasma total bilirubin measurement (mass/volume)2019-12-04 04:00:00* Test Item Value Reference Range Interpretation Comments Total Bilirubin (test code = 1975-2) 0.4 0.2-1.2 [facility] HarlingenFluoroscopic procedure less than one hour hrhzbboc9342-29-70 04:00:00* Test Item Value Reference Range Interpretation Comments Aspartate Amino Transf (AST/SGOT) (test code = Aspartate Amino Transf (AST/SGOT)) 13 5-34 [facility]ererum or plasma alanine aminotransferase measurement (enzymatic activity/volume)2019-12-04 04:00:00* Test Item Value Reference Range Interpretation Comments Alanine Aminotransferase (ALT/SGPT) (test code = 1742-6) 12 0-55 [facility] plasma protein measurement (mass/volume)2019-12-04 04:00:00* Test Item Value Reference Range Interpretation Comments Total Protein (test code = 2885-2) 5.2 6.5-8.1 [facility]ere[facility] or plasma albumin measurement (mass/volume)2019-12-04 04:00:00* Test Item Value Reference Range Interpretation Comments Albumin (test code = 1751-7) 2.3 3.5-5.0 [facility]enPlasma globulin measurement (mass/volume) 2019-12-04 04:00:00* Test Item Value Reference Range Interpretation Comments Globulin (test code = 69800-0) 2.9 2.3-3.5 [facility]ere[facility] or plasma albumin/globulin mass lozuj5098-39-69 04:00:00* Test Item Value Reference Range Interpretation Comments Albumin/Globulin Ratio (test code = 1759-0) 0.8 0.8-2.0 [facility]ererum or plasma alkaline phosphatase measurement (enzymatic activity/volume)2019-12-04 04:00:00* Test Item Value Reference Range Interpretation Comments Alkaline Phosphatase (test code = 6768-6) 78 40-150 [facility]lingenABDOMEN-1VIEW (KUB)2019-12-03 06:37:00 [facility] [address] [address] Patient Name: JANETT RIVERA MR #: [id number] : 1935 Age/Sex: 84/M Req #: [id number] Adm Physician: EDGARDO ALVARADO MD Ordered by: EDGARDO ALVARADO MD Report #: [id number] Location: [facility] Room/Bed: [place] [address] Procedure: [id number] DX/A BDOMEN-1VIEW (KUB) Exam Date: 12/03/19 Exam [...] 12/03/19641 COPY TO: EDGARDO ALVARADO MD Phosphorus Rgtvy0699-33-78 06:32:00* Test Item Value Reference Range Interpretation Comments Phosphorus Level (test code = ZXW1326) 4.2 2.3-4.7 [facility] HarlingenMagnesium Henws1225-88-37 06:32:00* Test Item Value Reference Range Interpretation Comments Magnesium Level (test code = 83462-9) 2.0 1.3-2.1 [facility]lingenPhosphorus mwzzjjetnnd0029-75-09 04:40:00 * Test Item Value Reference Range Interpretation Comments Phosphorus Level (test code = BXX4543) 4.2 2.3-4.7 [facility] magnesium measurement (mass/volume)2019-12-03 04:40:00* Test Item Value Reference Range Interpretation Comments Magnesium Level (test code = 73557-8) 2.0 1.3-2.1 [facility]lingenPhosphorus pkqqlpzpkwp7115-69-69 04:40:00 * Test Item Value Reference Range Interpretation Comments Phosphorus Level (test code = CMU4366) 4.2 2.3-4.7 [facility] magnesium measurement (mass/volume)2019-12-03 04:40:00* Test Item Value Reference Range Interpretation Comments Magnesium Level (test code = 99990-3) 2.0 1.3-2.1 [facility]enABDOMEN-1VIEW (KUB)2019-12-02 18:35:[address] [place] [address] Patient Name: JANETT RIVERA MR #: [id number] : 1935 Age/Sex: 84/M Req #: [id number] Adm Physician: EDGARDO ALVARADO MD Ordered by: CHRIS ARGUETA MD Report #: [id number] Location: [facility] Room/Bed: [place] [address] Procedure: [id number] DX/AB POWELL (TATE) Exam Date: 12/02/19 Exam Time: 175 0 [...] MARIE ARGUETA MD CHEST SINGLE (PORTABLE)2019-12-02 17:41:00 [facility] [address] [place] [address] Patient Name: JANETT RIVERA MR #: [id number] : 1935 Age/Sex: 84/M Req #: [id number] Adm Physician: EDGARDO ALVARADO MD Ordered by: GA SHEETS PSYCHOLOGICAL OPERATIONS SPECIALIST Report #: [id number] Location: [facility] Room/Bed: [place] [address] Procedure: [id number] DX/C HEST SINGLE (PORTABLE) Exam Date: 12/02/19 Exam Time : 1715 REPORT STATUS: Signed EXA MINATION: CHEST SINGLE (PORTABLE) INDICATION: NG tube placement C OMPARISON: Chest radiograph 11/29/2019 FINDINGS: LINES/TUBES:Repor sherie history of NG tube placement. No NG tube is visualized in the wedio-ms-vku w. The tube is possibly coiled in [...] that it may be coiled above the yuqnx-fq-njxt. Recommend replacement and repeat radiograph to confirm positioning. Unchanged right lung consolidation, better evaluated on prior radiograph. Signed by: Inna Torres MD on 12/02/2019 5:45 PM Dictated By: INNA TORRES MD 44 Transcribed By: BRENDA on 12/02/191744 COPY TO: GA SHEETS NP MODIFIED BA. JIQWGWO2298-94-14 15:15:00 [place] [address] Patient Name: JANETT RIVERA #: [id number] : 1935 Age/Sex: 84/M Req #: [id number] Adm Physician: EDGARDO ALVARADO MD Ordered by: Solange Segura PSYCHOLOGICAL OPERATIONS SPECIALIST Report #: [id number] Location: [facility] Room/Bed: [place] [address] Procedure: [id number] DX/ MODIFIED BA. SWALLOW Exam Date: 11/27/19 [...] TO: SOLANGE SEGURA N P CT ABDOMEN/PELVIS LD3709-39-52 04:14:00 [place] [address] Patient Name: JANETT RIVERA MR #: [id number] : 1935 Age/Sex: 84/M Req #: [id number] Adm Physician: EDGARDO ALVARADO MD Ordered by: NAZ PETE MD Report #: [id number] Location: ICU Room/Bed: ICU 1941 Procedure: [id number] CT/CT A BDOMEN/PELVIS WO Exam Date: Exam [...] 11/30/19424 COPY TO: NAZ PETE MD Blood Cxodlun2630-56-88 11:09:00* Test Item Value Reference Range Interpretation Comments Blood Culture (test code = 34636828) NO GROWTH AFTER 5 DAYS, FINAL REPORT [facility]enBand Neutrophils %2019-11-29 08:38:00* Test Item Value Reference Range Interpretation Comments Band Neutrophils % (test code = 764-1) 6 [facility]enNucleated Red Blood Gdxgp4632-55-13 08:38:00* Test Item Value Reference Range Interpretation Comments Nucleated Red Blood Cells (test code = 90716-4) 1 [facility]enPoikilocytosis2020-01-11 08:38:00* Test Item Value Reference Range Interpretation Comments Poikilocytosis (test code = 779-9) SLIGHT [facility]enMacrocytosis2020-01-11 08:38:00* Test Item Value Reference Range Interpretation Comments Macrocytosis (test code = 738-5) SLIGHT [facility] HarlingenCHES SINGLE (PORTABLE)2019-11-29 06:16:00 [facility] [address] [place] [address] Patient Name: JANETT RIVERA MR #: [id number] : 1935 Age/Sex: 84/M Req #: [id number] Adm Physician: EDGARDO ALVARADO MD Ordered by: LUCÍA SWEENEY MD Report #: [id number] Location: ICU Room/Bed: ICU [facility] Procedure: [id number] DX/SIVA ST SINGLE (PORTABLE) Exam Date: 11/29/19 [...] By: DOMINIC SANTANA MD 7 Transcribed By: RBENDA on 11/29/19617 COPY TO: LUCÍA SWEENEY MD Manual blood band neutrophils form/100 ujbmydylev8576-16-42 02:30:00* Test Item Value Reference Range Interpretation Comments Band Neutrophils % (test code = 764-1) 6 [facility]enBlood nucleated erythrocytes count (number/volume)2019-11-29 02:30:00* Test Item Value Reference Range Interpretation Comments Nucleated Red Blood Cells (test code = 49864-1) 1 [facility]enBlood poikilocytosis detection by light ydgfbcupqy2059-60-58 02:30:00* Test Item Value Reference Range Interpretation Comments Poikilocytosis (test code = 779-9) SLIGHT [facility] macrocytes detection by light ljtsxzkyxr2793-29-35 02:30:00* Test Item Value Reference Range Interpretation Comments Macrocytosis (test code = 738-5) SLIGHT [facility]lingenManual blood band neutrophils form/100 mhezmsbtii9220-15-16 02:30:00* Test Item Value Reference Range Interpretation Comments Band Neutrophils % (test code = 764-1) 6 [facility] count (number/volume)2019-11-29 02:30:00* Test Item Value Reference Range Interpretation Comments Nucleated Red Blood Cells (test code = 73480-7) 1 [facility] poikilocytosis detection by light ophpjxibow4807-19-33 02:30:00* Test Item Value Reference Range Interpretation Comments Poikilocytosis (test code = 779-9) SLIGHT [facility] macrocytes detection by light lpdwflsquz8587-88-69 02:30:00* Test Item Value Reference Range Interpretation Comments Macrocytosis (test code = 738-5) SLIGHT [facility]enIR AWUXCVA3415-27-49 15:49:00 [place] [address] Patient Name: JANETT RIVERA MR #: [id number] : 1935 Age/Sex: 84/M Req #: [id number] Adm Physician: EDGARDO ALVARADO MD Ordered by: LUCÍA SWEENEY MD Report #: [id number] Location: ICU Room/Bed: ICU [facility] Procedure: [id number] DX/IR CONSULT Exam Date: Exam Time: REPORT STATUS: Signed PROCEDURE: Nasogastric feeding tube placement Procedural Personnel Attending physician(s): Inna Torres MD Fellow physician(s): None Resident physician(s): None Advanced practice provider(s): None Pre-procedure diagnosis: Aspiration Post-procedure btehel gnosis: Same Indication: Nutritional support Additional clinical [...] 3:52 PM Dictated By: INNA TORRES MD 301 Tra nscribed By: BRENDA on 11/28/19 512 COPY TO: LUCÍA SWEENEY MD NASO GASTRIC TUBE PLACE W/CULE9653-74-03 15:49:00 [place] [address] Patient Name: JANETT RIVERA MR #: [id number] : 1935 Age/Sex: 84/M Req #: [id number] [facility] Physician: EDGARDO ALVARADO MD Ordered by: LUCÍA SWEENEY MD Report #: [id number] Location: ICU Room/Bed: ICU [facility] Procedure: IR/ALLIE O GASTRIC TUBE PLACE [...] LUCÍA SWEENEY MD CHEST SINGLE (PORTABLE)2019-11-27 06:35:00 [place] [address] Patient Name: JANETT RIVERA MR #: [id number] : 1935 Age/Sex: 84/M Req #: [id number] Adm Physician: EDGARDO ALVARADO MD Ordered by: LUCÍA SWEENEY MD Report #: [id number] Location: ICU Room/Bed: ICU [facility] Procedure: [id number] DX/SIVA ST SINGLE (PORTABLE) Exam Date: Exam Time: REPORT STATUS: Signed Examination: Robin pires AP view of the chest. COMPARISON: 11/26/2019 INDICATION: Aspiration p neumonia DISCUSSION: See impression IMPRESSION: Mild i nterval improvement in right upper lobe consolidation relative to 11/26/2019. No new consolidations. Unchanged cardiomegaly and pulmonary venous congestion. Signed by: Dr. Wilda Santillan M.D. on 11/27/2019 6:37 AM Dictated By: WILDA SANTILLAN MD 6 Transcribed By: BRENDA on 11/27/19636 COPY TO: LUCÍA SWEENEY MD Arterial Blood bL1597-93-97 04:56:00* Test Item Value Reference Range Interpretation Comments Arterial Blood pH (test code = 2744-1) 7.46 7.31-7.41 H [facility]enArterial Blood Partial Pressure CO2 2019-11-26 04:56:00* Test Item Value Reference Range Interpretation Comments Arterial Blood Partial Pressure CO2 (test code = 2019-06) 35 41-51 L [facility] HarlingenArterial Blood Partial Pressure O2 2019-11-26 04:56:00* Test Item Value Reference Range Interpretation Comments Arterial Blood Partial Pressure O2 (test code = 2019-06) 33 80-105 LL Results called/hand delivered to BAO ESPAÑA at 0440 on 11/26/19 by Be ORTA.[facility]enArterial Blood UGM61523-73-99 04:56:00* Test Item Value Reference Range Interpretation Comments Arterial Blood HCO3 (test code = 1960-4) 25 23-28 [facility]enArterial Blood Base Ydpzqk8359-28-38 04:56:00* Test Item Value Reference Range Interpretation Comments Arterial Blood Base Excess (test code = 1925-7) 1.0 -2-3 [facility]enArterial Blood Oxygen Saturation 2019-11-26 04:56:00* Test Item Value Reference Range Interpretation Comments Arterial Blood Oxygen Saturation (test code = 2708-6) 69.0 95-98 L [facility] HarlingenFiO22020-01-08 04:56:00* Test Item Value Reference Range Interpretation Comments FiO2 (test code = FiO2) 40 Pt on 5LNC blood drawn from left radial artery mixed venous blood.[facility] HarlingenCHEST SINGLE (PORTABLE)2019-11-26 04:55:00 [facility] [address] [address] Patient Name: JANETT RIVERA MR #: [id number] : 1935 Age/Sex: 84/M Req #: [id number] Adm Physician: EDGARDO ALVARADO MD Ordered by: GARETT SHRESTHA PSYCHOLOGICAL OPERATIONS SPECIALIST Report #: [id number] Location: MED/SURG3 Room/Bed: [facility] Procedure: [id number] DX/CH EST SINGLE (PORTABLE) Exam Date: 11/26/19 Exam [...] TO: GARETT SHRESTHA NP Arterial blood pH mykhbtaikyj7573-55-18 03:30:00* Test Item Value Reference Range Interpretation Comments Arterial Blood pH (test code = 2744-1) 7.46 7.31-7.41 [facility] HarlingenpCO2 ApzD5698-90-30 03:30:00* Test Item Value Reference Range Interpretation Comments Arterial Blood Partial Pressure CO2 (test code = 2018-) 35 41-51 [facility] HarlingenpCO2 GbcW7365-33-55 03:30:00* Test Item Value Reference Range Interpretation Comments Arterial Blood Partial Pressure O2 (test code = 2019-06) 33 80-105 Results called/hand delivered to RN TACO at 0440 on 11/26/19 by [employer]. R Jr [place].[facility] HarlingenArterial blood bicarbonate measurement (moles/volume)2019-11-26 03:30:00* Test Item Value Reference Range Interpretation Comments Arterial Blood HCO3 (test code = 1960-4) 25 23-28 [facility]lingenArterial blood base excess by calculation 2019-11-26 03:30:00* Test Item Value Reference Range Interpretation Comments Arterial Blood Base Excess (test code = 1925-7) 1.0 -2-3 [facility] oxygen saturation gpolxuluxjk4472-78-26 03:30:00* Test Item Value Reference Range Interpretation Comments Arterial Blood Oxygen Saturation (test code = 2708-6) 69.0 95-98 [facility]enFluoroscopic procedure less than one hour vkuhiysu0701-29-31 03:30:00* Test Item Value Reference Range Interpretation Comments FiO2 (test code = FiO2) 40 Pt on 5LNC blood drawn from left radial artery mixed venous blood.[facility]enArter[facility] blood pH hiyvwnwsyqs6172-97-29 03:30:00* Test Item Value Reference Range Interpretation Comments Arterial Blood pH (test code = 2744-1) 7.46 7.31-7.41 [facility]enpCO2 SvsV9066-30-99 03:30:00* Test Item Value Reference Range Interpretation Comments Arterial Blood Partial Pressure CO2 (test code = 2019-06) 35 41-51 [facility]enpCO2 CmnL1652-90-65 03:30:00* Test Item Value Reference Range Interpretation Comments Arterial Blood Partial Pressure O2 (test code = 2019-06) 33 80-105 Results called/hand delivered to RN TACO at 0440 on 11/26/19 by Be Cavanaugh. R B OK.[facility]enArterial blood bicarbonate measurement (moles/volume)2019-11-26 03:30:00* Test Item Value Reference Range Interpretation Comments Arterial Blood HCO3 (test code = 1960-4) 25 23-28 [facility]enArterial blood base excess by calculation 2019-11-26 03:30:00* Test Item Value Reference Range Interpretation Comments Arterial Blood Base Excess (test code = 1925-7) 1.0 -2-3 [facility]enAr[facility]ial blood oxygen saturation qenfslxzesb6545-98-14 03:30:00* Test Item Value Reference Range Interpretation Comments Arterial Blood Oxygen Saturation (test code = 2708-6) 69.0 95-98 [facility]enFluoroscopic procedure less than one hour ilqhwszl1595-06-81 03:30:00* Test Item Value Reference Range Interpretation Comments FiO2 (test code = FiO2) 40 Pt on 5LNC blood drawn from left radial artery mixed venous blood.[facility]lingenMODIFIED BA. XHJYSQY5161-47-71 13:46:00 [place] [address] Patient Name: JANETT RIVERA MR #: [id number] : 1935 Age/Sex: 84/M Req #: [id number] Adm Physician: EDGARDO ALVARADO MD Ordered by: LOUISE FERRERA DO Report #: [id number] Location: MED/SURG3 Room/Bed: [facility] Procedure: [id number] D X/MODIFIED BA. SWALLOW Exam Date: 11/25/19 [...] COPY TO: LOUISE FERRERA DO CHEST 2 LPNNG9297-71-74 06:53:00 [place] [address] Patient Name: JANETT RIVERA MR #: [id number] : 1935 Age/Sex: 84/M Req #: [id number] Adm Physician: EDGARDO ALVARADO MD Ordered by: LUCÍA SWEENEY MD Report #: [id number] Location: MED/SURG3 Room/Bed: [facility] Procedure: [id number] DX/SIVA ST 2 VIEWS Exam Date: 11/25/19 Exam Time: 0625 REPORT STATUS: Signed EXAMINATION: PA and lateral [...] Thyroid Stimulating Hormone (TSH) (test code = 00137-5) 0.544 0.350-4.940 [facility]enTriglycerides Sxkxx3923-42-52 04:41:00* Test Item Value Reference Range Interpretation Comments Triglycerides Level (test code = 2571-8) 58 0-149 [facility]enCholesterol Vmunw8904-17-01 04:41:00* Test Item Value Reference Range Interpretation Comments Cholesterol Level (test code = 2093-3) 92 0-199 Less than 200 mg/dL Low Myfh688 - 239 mg/dL Borderline Lfka762 m g/dl and greater High Risk [facility]enLDL Zlvyzjtdidd8037-56-74 04:41:00* Test Item Value Reference Range Interpretation Comments LDL Cholesterol (test code = 2089-1) 45 60-130 L [facility] Har[facility]enHDL Boybccbbflq7989-59-76 04:41:00* Test Item Value Reference Range Interpretation Comments HDL Cholesterol (test code = 2085-9) 35 40-60 L [facility]enCholesterol/HDL Ytjyp3547-53-33 04:41:00 * Test Item Value Reference Range Interpretation Comments Cholesterol/HDL Ratio (test code = 9830-1) 2.6 3.9-4.7 L [facility]enCreatine Kinase QG2213-75-76 04:12:00* Test Item Value Reference Range Interpretation Comments Creatine Kinase MB (test code = 13642-7) 1.20 0-5.0 [facility]enTroponin H9810-18-71 04:12:00* Test Item Value Reference Range Interpretation Comments Troponin I (test code = FRA1980) 0.125 0-0.300 [facility]enHemoglobin A1c Oqxnzlb5925-11-86 04:07:00 * Test Item Value Reference Range Interpretation Comments Hemoglobin A1c Percent (test code = Hemoglobin A1c Percent) 6.6 4.0-7.0 [facility]enCreatine Cpnyxg7309-80-06 04:07:00* Test Item Value Reference Range Interpretation Comments Creatine Kinase (test code = 2157-6) 350 30-200 H [facility]lingenFluoroscopic procedure less than one hour jxfszwmo5789-27-15 02:40:00* Test Item Value Reference Range Interpretation Comments Hemoglobin A1c Percent (test code = Hemoglobin A1c Percent) 6.6 4.0-7.0 [facility] triglyceride measurement (mass/volume)2019-11-25 02:40:00* Test Item Value Reference Range Interpretation Comments Triglycerides Level (test code = 2571-8) 58 0-149 [facility] cholesterol measurement (mass/volume)2019-11-25 02:40:00* Test Item Value Reference Range Interpretation Comments Cholesterol Level (test code = 2093-3) 92 0-199 Less than 200 mg/dL Low Utbr715 - 239 mg/dL Borderline Cmvo937 m g/dl and greater High Risk [facility] cholesterol in LDL measurement (mass/volume) 2019-11-25 02:40:00* Test Item Value Reference Range Interpretation Comments LDL Cholesterol (test code = 2089-1) 45 60-130 [facility] cholesterol in HDL measurement (mass/volume)2019-11-25 02:40:00* Test Item Value Reference Range Interpretation Comments HDL Cholesterol (test code = 2085-9) 35 40-60 [facility] plasma total cholesterol/cholesterol in HDL mass uvfgj5525-11-69 02:40:00* Test Item Value Reference Range Interpretation Comments Cholesterol/HDL Ratio (test code = 9830-1) 2.6 3.9-4.7 [facility] plasma creatine kinase measurement (enzymatic activity/volume)2019-11-25 02:40:00* Test Item Value Reference Range Interpretation Comments Creatine Kinase (test code = 2157-6) 350 30-200 [facility]rum [facility] plasma creatine kinase MB measurement (mass/volume)2019-11-25 02:40:00* Test Item Value Reference Range Interpretation Comments Creatine Kinase MB (test code = 45265-8) 1.20 0-5.0 [facility]enTroponin I measurement by highly sensitive enzyme uiddjhjaxbr1859-46-06 02:40:00* Test Item Value Reference Range Interpretation Comments Troponin I (test code = 33294-9) 0.125 0-0.300 [facility]rum or plasma thyrotropin measurement by detection limit <= 0.005 miu/l (units/volume)2019-11-25 02:40:00* Test Item Value Reference Range Interpretation Comments Thyroid Stimulating Hormone (TSH) (test code = 07987-9) 0.544 0.350-4.940 [facility]enFluoroscopic procedure less than one hour jmpridsq2414-18-95 02:40:00* Test Item Value Reference Range Interpretation Comments Hemoglobin A1c Percent (test code = Hemoglobin A1c Percent) 6.6 4.0-7.0 [facility] triglyceride measurement (mass/volume)2019-11-25 02:40:00* Test Item Value Reference Range Interpretation Comments Triglycerides Level (test code = 2571-8) 58 0-149 [facility] cholesterol measurement (mass/volume)2019-11-25 02:40:00* Test Item Value Reference Range Interpretation Comments Cholesterol Level (test code = 2093-3) 92 0-199 Less than 200 mg/dL Low Yqwv824 - 239 mg/dL Borderline Kphh936 m g/dl and greater High Risk [facility] cholesterol in LDL measurement (mass/volume) 2019-11-25 02:40:00* Test Item Value Reference Range Interpretation Comments LDL Cholesterol (test code = 2089-1) 45 60-130 [facility] cholesterol in HDL measurement (mass/volume)2019-11-25 02:40:00* Test Item Value Reference Range Interpretation Comments HDL Cholesterol (test code = 2085-9) 35 40-60 [facility] plasma total cholesterol/cholesterol in HDL mass vaxbu9952-06-08 02:40:00* Test Item Value Reference Range Interpretation Comments Cholesterol/HDL Ratio (test code = 9830-1) 2.6 3.9-4.7 [facility] plasma creatine kinase measurement (enzymatic activity/volume)2019-11-25 02:40:00* Test Item Value Reference Range Interpretation Comments Creatine Kinase (test code = 2157-6) 350 30-200 [facility] plasma creatine kinase MB measurement (mass/volume)2019-11-25 02:40:00* Test Item Value Reference Range Interpretation Comments Creatine Kinase MB (test code = 70593-5) 1.20 0-5.0 [facility]enTroponin I measurement by highly sensitive enzyme pqlcbulqytg3809-43-51 02:40:00* Test Item Value Reference Range Interpretation Comments Troponin I (test code = 84403-7) 0.125 0-0.300 [facility] plasma thyrotropin measurement by detection limit <= 0.005 miu/l (units/volume)2019-11-25 02:40:00* Test Item Value Reference Range Interpretation Comments Thyroid Stimulating Hormone (TSH) (test code = 63959-7) 0.544 0.350-4.940 [facility]enInfluenza Virus Types A,B Antigen 2019-11-24 17:17:00* Test Item Value Reference Range Interpretation Comments Influenza Virus Types A,B Antigen (test code = 83004-6) NEGATIVE NEGATIVE [facility]enInfluenza virus A and B antigen identification by stksrsrogbyhgyvhoc6638-97-60 15:35:00* Test Item Value Reference Range Interpretation Comments Influenza Virus Types A,B Antigen (test code = 41503-9) NEGATIVE NEGATIVE [facility]enInfluenza virus A and B antigen identification by jwfztcyznpczoomtry1934-60-20 15:35:00* Test Item Value Reference Range Interpretation Comments Influenza Virus Types A,B Antigen (test code = 72983-3) NEGATIVE NEGATIVE [facility]enUrine UMZ8260-11-29 12:05:00* Test Item Value Reference Range Interpretation Comments Urine WBC (test code = 5821-4) 0-5 0-5 [facility]enUrine RTS4287-14-64 12:05:00* Test Item Value Reference Range Interpretation Comments Urine RBC (test code = 96258-1) 0-5 0-5 [facility]enU[facility] Etxuurjq1492-52-45 12:05:00* Test Item Value Reference Range Interpretation Comments Urine Bacteria (test code = 05019-7) RARE NONE [facility]enU[facility] Epithelial Gprct4981-98-18 12:05:00 * Test Item Value Reference Range Interpretation Comments Urine Epithelial Cells (test code = 34885-5) FEW NONE [facility]enU[facility] Sctgx9279-01-55 11:45:00* Test Item Value Reference Range Interpretation Comments Urine Color (test code = 5778-6) YELLOW YELLOW [facility]enU[facility] Kdwyxrj4781-96-63 11:45:00* Test Item Value Reference Range Interpretation Comments Urine Clarity (test code = 05375-8) CLEAR CLEAR [facility]enUrine Specific Vaepelo6689-18-17 11:45:00 * Test Item Value Reference Range Interpretation Comments Urine Specific [place] (test code = 5811-5) 1.015 1.010-1.02 5 [facility]enUrine xZ0123-39-29 11:45:00* Test Item Value Reference Range Interpretation Comments Urine pH (test code = 17960-8) 6 5-7 [facility]enU[facility] Leukocyte Wneivspl7113-70-98 11:45:00* Test Item Value Reference Range Interpretation Comments Urine Leukocyte Esterase (test code = 48877-7) NEGATIVE NEGATIV E [facility]enU[facility] Khhortj5596-26-23 11:45:00* Test Item Value Reference Range Interpretation Comments Urine Nitrite (test code = 63564-0) NEGATIVE NEGATIVE [facility]enU[facility] Gllamew1466-35-31 11:45:00* Test Item Value Reference Range Interpretation Comments Urine Protein (test code = 04565-2) NEGATIVE NEGATIVE [facility]enUrine Glucose (UA)2019-11-24 11:45:00* Test Item Value Reference Range Interpretation Comments Urine Glucose (UA) (test code = 28320-0) NEGATIVE NEGATIVE [facility]enUrine Alylnye4163-55-78 11:45:00* Test Item Value Reference Range Interpretation Comments Urine Ketones (test code = 96741-6) NEGATIVE NEGATIVE [facility]enU[facility] Rpwpgwhbhraf3361-65-55 11:45:00* Test Item Value Reference Range Interpretation Comments Urine Urobilinogen (test code = 81913-1) 0.2 0.2-1 [facility]enU[facility] Iligvbstz8002-25-38 11:45:00* Test Item Value Reference Range Interpretation Comments Urine Bilirubin (test code = 1977-8) NEGATIVE NEGATIVE [facility]enUrine Oykup2783-92-44 11:45:00* Test Item Value Reference Range Interpretation Comments Urine Blood (test code = 23711-8) NEGATIVE NEGATIVE [facility]lingenLactic Acid Pvspl9348-33-47 11:31:00* Test Item Value Reference Range Interpretation Comments Lactic Acid Level (test code = Lactic Acid Level) 1.2 0.5- 2.0 [facility]lingenFluoroscopic procedure less than one hour xdaavtme5345-20-06 10:00:00* Test Item Value Reference Range Interpretation Comments Lactic Acid Level (test code = Lactic Acid Level) 1.2 0.5- 2.0 [facility]enBlood xqeuvrs5217-24-10 10:00:00* Test Item Value Reference Range Interpretation Comments Blood Culture (test code = 54901094) NO GROWTH AFTER 5 DAYS, FINAL REPORT [facility]lingenFluoroscopic procedure less than one hour topexvdo4149-09-44 10:00:00* Test Item Value Reference Range Interpretation Comments Lactic Acid Level (test code = Lactic Acid Level) 1.2 0.5- 2.0 [facility]enBlood eonoymq5000-90-47 10:00:00* Test Item Value Reference Range Interpretation Comments Blood Culture (test code = 08549566) NO GROWTH AFTER 5 DAYS, FINAL REPORT [facility]2019-11-24 09:27:00 [facility] [address] [place] [address] Patient Name: JANETT RIVERA MR #: [id number] : 1935 Age/Sex: 84/M Req #: [id number] Adm Physician: Ordered by: LOUISE FERRERA DO Report #: [id number] Location: ER Room/Bed: Procedure: [id number] DX /CHEST SINGLE (PORTABLE) Exam Date: 11/24/19 [...] COPY TO: LOUISE FERRERA DO Urine color rlczcdignoypz0194-05-49 09:17:00* Test Item Value Reference Range Interpretation Comments Urine Color (test code = 5778-6) YELLOW YELLOW [facility]enUrine jtjgwtm4102-21-52 09:17:00* Test Item Value Reference Range Interpretation Comments Urine Clarity (test code = 46094-0) CLEAR CLEAR [facility] U[facility] by Test strip 2019-11-24 09:17:00* Test Item Value Reference Range Interpretation Comments Urine Specific [place] (test code = 5811-5) 1.015 1.010-1.02 5 [facility]enUrine pH measurement by automated test fwvlb4536-49-46 09:17:00* Test Item Value Reference Range Interpretation Comments Urine pH (test code = 85411-3) 6 5-7 [facility]enUrine leukocyte esterase detection by automated test lsdfi3391-12-89 09:17:00* Test Item Value Reference Range Interpretation Comments Urine Leukocyte Esterase (test code = 61964-4) NEGATIVE NEGATIV E [facility]enUrine nitrite detection by automated test kbquo4487-68-26 09:17:00* Test Item Value Reference Range Interpretation Comments Urine Nitrite (test code = 03992-4) NEGATIVE NEGATIVE [facility]enUrine protein detection by automated test robwa0564-40-62 09:17:00* Test Item Value Reference Range Interpretation Comments Urine Protein (test code = 36316-9) NEGATIVE NEGATIVE [facility]enUrine glucose detection by automated test pxqnj6810-17-64 09:17:00* Test Item Value Reference Range Interpretation Comments Urine Glucose (UA) (test code = 68735-8) NEGATIVE NEGATIVE [facility]enUrine ketones detection by automated test catsb6821-50-24 09:17:00* Test Item Value Reference Range Interpretation Comments Urine Ketones (test code = 34429-5) NEGATIVE NEGATIVE [facility]enUrine urobilinogen measurement by test strip (mass/volume)2019-11-24 09:17:00* Test Item Value Reference Range Interpretation Comments Urine Urobilinogen (test code = 54280-4) 0.2 0.2-1 [facility]enU[facility] total bilirubin etfguhzsa2368-34-77 09:17:00* Test Item Value Reference Range Interpretation Comments Urine Bilirubin (test code = 1977-8) NEGATIVE NEGATIVE [facility]enUrine erythrocytes amrdjiekf4501-91-51 09:17:00* Test Item Value Reference Range Interpretation Comments Urine Blood (test code = 27426-2) NEGATIVE NEGATIVE [facility] HarlingenAutomated urine sediment leukocyte count by microscopy (number/high power field)2019-11-24 09:17:00* Test Item Value Reference Range Interpretation Comments Urine WBC (test code = 5821-4) 0-5 0-5 [facility]enErythrocytes detection in urine sediment by light xyhtpsstga0606-54-46 09:17:00* Test Item Value Reference Range Interpretation Comments Urine RBC (test code = 05971-2) 0-5 0-5 [facility]enBacteria detection in urine sediment by light xwjtssjkri8365-94-72 09:17:00* Test Item Value Reference Range Interpretation Comments Urine Bacteria (test code = 85693-5) RARE NONE [facility]lingenEpithelial cells detection in urine sediment by light grlkrreibx9942-30-46 09:17:00* Test Item Value Reference Range Interpretation Comments Urine Epithelial Cells (test code = 97000-3) FEW NONE [facility]enUrine color pzfiuqednmeqr5068-91-71 09:17:00* Test Item Value Reference Range Interpretation Comments Urine Color (test code = 5778-6) YELLOW YELLOW [facility]enUrine pqanukw7045-25-71 09:17:00* Test Item Value Reference Range Interpretation Comments Urine Clarity (test code = 25110-0) CLEAR CLEAR [facility] Centerpecific [facility] Urine by Test strip 2019-11-24 09:17:00* Test Item Value Reference Range Interpretation Comments Urine Specific [place] (test code = 5811-5) 1.015 1.010-1.02 5 [facility]enU[facility] pH measurement by automated test bvjce2100-67-85 09:17:00* Test Item Value Reference Range Interpretation Comments Urine pH (test code = 00042-2) 6 5-7 [facility]enUrine leukocyte esterase detection by automated test nsvjq7039-25-95 09:17:00* Test Item Value Reference Range Interpretation Comments Urine Leukocyte Esterase (test code = 12594-6) NEGATIVE NEGATIV E [facility]enUrine nitrite detection by automated test aupcq1395-99-82 09:17:00* Test Item Value Reference Range Interpretation Comments Urine Nitrite (test code = 46754-6) NEGATIVE NEGATIVE [facility]enUrine protein detection by automated test dznbk5884-44-97 09:17:00* Test Item Value Reference Range Interpretation Comments Urine Protein (test code = 34589-9) NEGATIVE NEGATIVE [facility]enUrine glucose detection by automated test yevkr0661-83-41 09:17:00* Test Item Value Reference Range Interpretation Comments Urine Glucose (UA) (test code = 37253-4) NEGATIVE NEGATIVE [facility]enUrine ketones detection by automated test lwkgd3066-78-94 09:17:00* Test Item Value Reference Range Interpretation Comments Urine Ketones (test code = 92869-4) NEGATIVE NEGATIVE [facility]enUrine urobilinogen measurement by test strip (mass/volume)2019-11-24 09:17:00* Test Item Value Reference Range Interpretation Comments Urine Urobilinogen (test code = 71128-0) 0.2 0.2-1 [facility]enU[facility] total bilirubin xhczsdbkx9447-03-31 09:17:00* Test Item Value Reference Range Interpretation Comments Urine Bilirubin (test code = 1977-8) NEGATIVE NEGATIVE [facility]enUrine erythrocytes ztalfuysz4365-15-31 09:17:00* Test Item Value Reference Range Interpretation Comments Urine Blood (test code = 03247-3) NEGATIVE NEGATIVE [facility]lingenAutomated urine sediment leukocyte count by microscopy (number/high power field)2019-11-24 09:17:00* Test Item Value Reference Range Interpretation Comments Urine WBC (test code = 5821-4) 0-5 0-5 [facility]enErythrocytes detection in urine sediment by light dnflpoggcc8921-14-20 09:17:00* Test Item Value Reference Range Interpretation Comments Urine RBC (test code = 99436-4) 0-5 0-5 [facility]lingenBacteria detection in urine sediment by light yprvehirqq2458-70-13 09:17:00* Test Item Value Reference Range Interpretation Comments Urine Bacteria (test code = 31073-4) RARE NONE [facility] HarlingenEpithelial cells detection in urine sediment by light gowxjisbfw1512-35-90 09:17:00* Test Item Value Reference Range Interpretation Comments Urine Epithelial Cells (test code = 52648-6) FEW NONE [facility] HarlingenB-Type Natriuretic Ysdfbpm8260-87-94 08:30:00* Test Item Value Reference Range Interpretation Comments B-Type Natriuretic Peptide (test code = 64945-8) 1181.4 0-100 H [facility]-iTyr3691-93-24 06:54:00* Test Item Value Reference Range Interpretation Comments B-Type Natriuretic Peptide (test code = 14735-7) 1181.4 0-100 [facility]-hDlf8232-57-00 06:54:00* Test Item Value Reference Range Interpretation Comments B-Type Natriuretic Peptide (test code = 00563-2) 1181.4 0-100 [facility]lingenGLUBED2019-11-20 18:23:00* Test Item Value Reference Range Interpretation Comments GLUBED (test code = GLUBED) 135 MG/DL 70-110 H Performed by certified four slide operator at [facility] UNI/UDK4894-16-60 15:30:00 Name: JANETT RIVERA [facility] : 1935 Age/S: 84 / M [address] [place] [address] Unit #: [id number] Loc: [place] [address] Phys: Oz Schaeffer MD Acct: [id number] Dis Date: Status: ADM IN PHONE #: [phone] Exam Date: 10/08/2019 1450 FAX #: [phone] Reason: R/O DVT of left arm EXAMS: CPT CODE: [id number] [facility] UNI/LTD 55071 PROCEDURE: UNILATERAL UPPER EXTREMITY VENOUS ULTRASOUND INDICATION: [...] Central venous stenosis is not excluded. SL: [id number] at 1530 Reported and signed by: Aleksander Khalil M.D. CC: Oz Schaeffer MD Technologist: Maddison Perez RDMS(OB)(AB) Trnscb Date/Time: 10/08/2019 (1530) t.Kg FAJARDO Orig Print D/T: S: 10/08/2019 (1533) Probe: PAGE 1 Signed Report [id number] 13:07:00* Test Item Value Reference Range Interpretation Comments GLUBED (test code = GLUBED) 261 MG/DL 70-110 H Performed by certified four slide operator at [facility] YUFJRU1895-79-45 09:26:00* Test Item Value Reference Range Interpretation Comments GLUBED (test code = GLUBED) 142 MG/DL 70-110 H Performed by certified four slide operator at [facility] TXIKTY1565-69-30 20:32:00* Test Item Value Reference Range Interpretation Comments GLUBED (test code = GLUBED) 148 MG/DL 70-110 H Performed by certified four slide operator at [facility] ZXTULK7096-44-84 17:21:00* Test Item Value Reference Range Interpretation Comments GLUBED (test code = GLUBED) 118 MG/DL 70-110 H Performed by certified four slide operator at [facility] CULCKV4859-39-53 12:51:00* Test Item Value Reference Range Interpretation Comments GLUBED (test code = GLUBED) 167 MG/DL 70-110 H Performed by certified [facility] slide operator at [facility] [facility] [id number] 09:44:00* Test Item Value Reference Range Interpretation Comments GLUBED (test code = GLUBED) 113 MG/DL 70-110 H Performed by certified four slide operator at [facility] [id number] 21:07:00* Test Item Value Reference Range Interpretation Comments GLUBED (test code = GLUBED) 106 MG/DL 70-110 N Performed by certified four slide operator at [facility] [id number] 17:40:00* Test Item Value Reference Range Interpretation Comments GLUBED (test code = GLUBED) 146 MG/DL 70-110 H Performed by certified four slide operator at [facility] [id number] 17:40:00* Test Item Value Reference Range Interpretation Comments GLUBED (test code = GLUBED) 209 MG/DL 70-110 H Performed by certified four slide operator at [facility] [id number] 08:36:00* Test Item Value Reference Range Interpretation Comments GLUBED (test code = GLUBED) 138 MG/DL 70-110 H Performed by certified four slide operator at [facility] [id number] 20:01:00* Test Item Value Reference Range Interpretation Comments GLUBED (test code = GLUBED) 245 MG/DL 70-110 H Performed by certified four slide operator at [facility] [id number] 17:54:00* Test Item Value Reference Range Interpretation Comments GLUBED (test code = GLUBED) 213 MG/DL 70-110 H Performed by certified four slide operator at [facility] [id number] 13:20:00* Test Item Value Reference Range Interpretation Comments GLUBED (test code = GLUBED) 179 MG/DL 70-110 H Performed by certified four slide operator at [facility] [id number] 09:06:00* Test Item Value Reference Range Interpretation Comments GLUBED (test code = GLUBED) 174 MG/DL 70-110 H Performed by certified four slide operator at [facility] BASIC METABOLIC [id number] 07:39:00* Test Item Value Reference Range Interpretation [...] CA) 8.5 mg/dL 8.0-10.5 N CBC W/AUTO [id number] 07:17:00* Test Item Value Reference Range Interpretation [...] DIFF REQUIRED (test code = MDIFF) NO [id number] 01:12:00* Test Item Value Reference Range Interpretation Comments GLUBED (test code = GLUBED) 232 MG/DL 70-110 H Performed by certified four slide operator at [facility] [id number] 17:31:00* Test Item Value Reference Range Interpretation Comments GLUBED (test code = GLUBED) 180 MG/DL 70-110 H Performed by certified four slide operator at [facility] [id number] 12:49:00* Test Item Value Reference Range Interpretation Comments GLUBED (test code = GLUBED) 193 MG/DL 70-110 H Performed by certified four slide operator at [facility] [id number] 09:15:00* Test Item Value Reference Range Interpretation Comments GLUBED (test code = GLUBED) 160 MG/DL 70-110 H Performed by certified four slide operator at [facility] [id number] 19:36:00* Test Item Value Reference Range Interpretation Comments GLUBED (test code = GLUBED) 192 MG/DL 70-110 H Performed by certified four slide operator at [facility] [id number] 17:17:00* Test Item Value Reference Range Interpretation Comments GLUBED (test code = GLUBED) 182 MG/DL 70-110 H Performed by certified four slide operator at [facility] [id number] 09:23:00* Test Item Value Reference Range Interpretation Comments GLUBED (test code = GLUBED) 152 MG/DL 70-110 H Performed by certified four slide operator at [facility] BASIC METABOLIC [id number] 07:56:00* Test Item Value Reference Range Interpretation [...] code = CA) 8.3 mg/dL 8.0-10.5 N [id number] 20:38:00* Test Item Value Reference Range Interpretation Comments GLUBED (test code = GLUBED) 253 MG/DL 70-110 H Performed by certified four slide operator at [facility] [id number] 13:23:00* Test Item Value Reference Range Interpretation Comments GLUBED (test code = GLUBED) 124 MG/DL 70-110 H Performed by certified four slide operator at [facility] PROCALCITONIN (PCT)2019-10-02 11:17:00* Test Item Value Reference [...] are obtained. UA RFLX MICR CULT IF [id number] 10:24:00* Test Item Value Reference Range Interpretation [...] CATH (SARAH)Cath Status: Over 72 hoursHEPATIC FUNCTION [id number] 09:17:00* Test Item Value Reference Range Interpretation [...] code = ALKP) 65 IUnit/L 20-125 N [id number] 09:17:00* Test Item Value Reference Range Interpretation Comments ALCOHOL (test code = ALC) < 0.003 G/dL <0.003 Et hyl Alcohol Interpretation: 0.100 gm/dL - Legally Intoxicated 0.300-0.400 gm/dL - Severely Intoxicated >0.400 gm/dL - Potentially LethalResults are for Medical purposes only, and not for Legal orEmployment evaluation purposes. - CT C-SPINE W/O [id number] 09:17:00 Name: JANETT RIVERA [facility] : 1935 Age/S: 84 / M [address] [place] [address] Unit #: [id number] Loc: [place] [address] Phys: Jose Pineda DO Acct: [id number] Dis Date: Status: REG ER PHONE #: [phone] Exam Date: 10/02/2019 0849 FAX #: [phone] Reason: ams, found on floor, neck pain EXAMS: CPT CODE: [id number] CT C-SPINE W/O CONT 34555 CT cervical spine without contrast 10/02/2019 HISTORY: [...] described, mostly at C5-6 and C6-7. SL: [id number] at 0917 Reported and signed by: Homar Cooper M.D. PAGE 1 Signed Report (CONTINUED) Name: JANETT RIVERA [facility] : 1935 Age/S: 84 / M [address] [facility] Unit #: [id number] Loc: [place] [address] Phys: Jose Pineda DO Acct: [id number] Dis Date: Status: REG ER PHONE #: [phone] Exam Date: 10/02/2019 0849 FAX #: [phone] Reason: ams, found on floor, neck pain EXAMS: CPT CODE: [id number] CT C-SPINE W/O CONT 61452 < Continued> CC: Jose Pineda DO Technologist:Jimmy Bautista, RT(R) CTDI: DLP: Trnscb Date/Time: 10/02/2019 (0917) [email or web address] Orig Print D/T: S: 10/02/2019 (9080) PAGE 2 Signed Report CBC W/AUTO [id number] 09:15:00* Test Item Value Reference Range Interpretation [...] = MDIFF) NO - CT HEAD/BRAIN W/O [id number] 09:13:00 Name: JANETT RIVERA [facility] : 1935 Age/S: 84 / M [address] [place] [address] Unit #: [id number] Loc: [place] [address] Phys: Bin Pinedajose Jr DO Acct: [id number] Dis Date: Status: REG ER PHONE #: [phone] Exam Date: 10/02/2019 0849 FAX #: [phone] Reason: ams EXAMS: CPT CODE: [id number] CT HEAD/BRAIN W/O CONT 33063 CT head without contrast 10/02/2019 HISTORY: Altered [...] 4. Nonspecific bilateral m astoid opacification. SL: [id number] El ectronically Signed by Radhames Cooper on at 0913 Reported and signed by: Lilibeth Cooper M.D. CC: Jose Pineda DO Technologist:Jimmy Bautista, RT(R) CTDI: DLP: Trn scb Date/Time: 10/02/2019 (912) [email or web address] Orig Print D/T : S: 10/02/2019 (7230) PAGE 1 Signed Report PROTHROMBIN [id number] 09:11:00* Test Item Value Reference Range Interpretation [...] Infarction (to prevent recurrent infarct). THROMBOPLASTIN TIME [id number] 09:11:00* Test Item Value Reference Range Interpretation Comments THROMBOPLASTIN TIME PARTIAL (test code = PTT) 30.0 Seconds 25.0-39. 5 N Therapeutic Range: 50.4 - 88.3 Seconds Effective 03/04/2019 TROPONIN-I [id number] 09:10:00* Test Item Value Reference Range Interpretation Comments TROPONIN-I RAPID (test code = TROPIRAP) 0.01 ng/mL 0.00-0.08 N Performed by certified four slide operator at [facility] Negative: <= 0.08 Positive: >= 0.09An elevated troponin value alone is not sufficient todiagnose a myocardial infarction. Rather, the patient sclinical presentation (history, physical exam) and ECGshould be used in conjunction with troponin in thediagnostic evaluation of suspected myocardial infarction. Aserial sampling protocol is recommended to facilitate the identification of temporal changes in troponin levels characteristic of IA. CHEMISTRY 8 [id number] 08:43:00* Test Item Value Reference Range Interpretation [...] code = GFRBED) 51 ML/MIN CHEMISTRY 8 [id number] 08:43:00* Test Item Value Reference Range Interpretation Comments ISTAT-SODIUM (test code = NAP) 143 MMOL/L 134-147 N ISTAT-POTASSIUM (test code = KP) 3.8 MMOL/L 3.4-5.0 N ISTAT-CHLORIDE (test code = CLP) 102 MMOL/L 100-108 N Performed by certified four slide operator at [facility] ISTAT CARBON DIOXIDE (test code = ISTAT-CO2) 29.0 mmol/L 21-33 N ISTAT CALCIUM IONIZED (test code = ISTAT-MAIKOL) 1.10 MG/DL 1.12-1.3 2 L ISTAT-GLUCOSE (test code = GLUP) 145 MG/DL 70-110 H ISTAT-BUN (test code = BUNP) 28 MG/DL 7-18 H BEDSIDE CREATININE (test code = CREATBED) 1.4 MG/DL 0.6-1.3 H GLOMERULAR FILTRATION RATE POC (test code = GFRBED) 51 ML/MIN LACTIC ACID [id number] 08:42:00* Test Item Value Reference Range Interpretation Comments LACTIC ACID POC (test code = LACTP) 1.4 MMOL/L 0.90-1.70 N Performed by certified four slide operator at [facility] - XR PELVIS 1/2 [id number] 08:38:00 FAX: Jose Pineda DO [place]: [employer] [address]: PRE Name: JANETT THOMPSON [facility] : [birth year] Age/S: 84/M [address] [place] [address] Unit #: [id number] Loc: [address] [address] Phys: Jose Pineda DO Acct: [id number] Dis Date: Status: PRE ER PHONE #: [phone] Exam Date: 10/02/2019830 FAX #: [phone] Reason: pain EXAMS: CPT CODE: [id number] XR PELVIS 1/2 VIEWS 26867 Pelvis single view 10/02/2019 HISTORY: Fall from bed. Neck pain FINDINGS: Sacroiliac joints and pubic symphysis are intact. Superior and inferior rami are int act. Femoral heads are well rounded. There is no lucency to suggest an a cute fracture. No aggressive lesion is present. IMPRESSIO N: No acute injury to bony pelvis identified. SL: NICHOLAS [id number] at 0838 Reported and signed by: Homar Cooper M.D. CC: Jose Pineda DO Technologist: RT Sánchez(Ernesto) Trnscrd Date/Time/By: 10/02/2019 (0838) : By: [email or web address] Orig Print D/T: S: 10/02/2019 (0841) PAGE 1 Signed Report - XR CHEST 1 [id number] 08:36:00 FAX: Jose Pineda DO [place]: [facility] [employer] [facility]: PRE Name: JANETT THOMPSON [facility] : [birth year] Age/S: 84/M [address] [place] [address] Blvd Unit #: [id number] Loc: [address] [address] Phys: Jose Pineda DO Acct: [id number] Dis Date: Status: PRE ER PHONE #: [phone] Exam Date: 10/02/2019830 FAX #: [phone] Reason: ams EXAMS: CPT CODE: [id number] XR CHEST 1 V 11546 Chest single view 10/02/2019 HISTORY: Altered mental [...] lungs. No acute cardiopulmonary process identified. SL: [id number] at 0836 Reported and signed by: Homar Cooper M.D. CC: Jose Pineda DO Technologist: RT Sánchez(Ernesto) Trnscrd Date/Time/By: 10/02/2019 (0836) : By: [email or web address] Orig Print D/T: S: 10/02/2019 (0839) PAGE [address] SOFT TISSUE NECK [id number] 01:20:00 [place] [address] Patient Name: JANETT RIVERA MR #: [id number] : 1935 Age/Sex: 84/M Req #: [id number] Adm Physician: Ordered by: TODD ALICEA MD Report #: [id number] Location: ER Room/Bed: Procedure: 0720-[address]/CT SOFT TISSUE NECK WO Exam [...] POC [employer]) [address] [facility]] CMP [id number] 10:02:00* Test Item Value Reference Range Interpretation [...] is approximately 13% higher for peopleidentified as -Bermudian. eGFR NON- (test code = eGFR NON-GUTIERREZ N MACANESE) 41 {ML/MIN/1.7} > OR = 60 eGFR [...] N BILIRUBIN, TOTAL; Normal (test code = 60577-8) 0.6 mg/dl 0.2-1.2 N ALKALINE PHOSPHATE (test code = ALKALINE PHOSPHATE) 41 u/l 40 -115 N AST; Normal (test code = 1916-6) 15 u/l 10-35 N ALT; Normal (test code = 1742-6) 15 u/l 9-46 N ALKALINE PHSPHATASE (test code = ALKALINE PHSPHATASE) 41 u/l 40-115 N [facility] T4, [id number] 10:02:00* Test Item Value Reference Range Interpretation Comments T4, FREE (test code = T4, FREE) 1.1 ng/dl 0.8-1.8 N [facility]] TSH, 3RD [id number] 10:02:00* Test Item Value Reference Range Interpretation Comments TSH; Normal (test code = 30478-9) 2.90 {MIU/L} 0.40-4.50 N [facility]] VITAMIN D, 25-HYDROXY, LC/MS/[id number] 10:02:00* Test Item Value Reference Range Interpretation [...] D, (D2,D3), LC/MS/MS is recommended: order code 64970 (patients >2yrs). For more information on this test, go to:http://education.LicenseMetrics/faq/EQB718(This link is being provided for informational/educational purposes [...] D, (D2,D3), LC/MS/MS is recommended: order code 54511 (patients >2yrs). For more information on this test, go to:http://education.LicenseMetrics/faq/XGW932(This link is being provided for informational/educational purposes [...] = 2571-8) 229 LDL-CHOLESTEROL (test code = 15505-4) 28 NON HDL CHOLESTEROL (test code = NON HDL CHOLESTEROL) 74 T. Chol/HDL Ratio (test code = 9830-1) 3.0 GLUCOSE (test code = 1547-9) 129 [facility][O] Hemoglobin A1c (in office)2017-11-30 09:11:00 * Test Item Value Reference Range Interpretation Comments HEMOGLOBIN A1c (test code = 4548-4) 7.8 [facility]
[2020-04-30] MEDS ORDERED: LIDOCAINE JELLY 2% 10ML URO-JET TOP ONE (04:00)
--- NOTE | 2020-04-30 04:12 | Emergency Department Note ---
History of Present Illnes History of Present Illness Chief Complaint: Genitourinary History of Present Illness This is a 85 year old male presents to ED with repoirt of urinary r etention; pt has indwelling foss catheter, was recently changed at this facility 2 days ago; pt with NAD noted; . Arrival Mode: [facility] Onset (how long ago): hour(s) (4) Location: lower abdomen Quality: pain, foss not draining Radiation: Reports non-radiation Severity: moderate Duration (how long): hour(s) (4) Timing of current episode: constant Progression: unchanged Chronicity: recurrent Context: Denies recent illness Relieving factors: none Exacerbating factors: none Associated symptoms: Reports denies other symptoms Treatments prior to arrival: none Past Medical/Family History Physician Review I have reviewed the patient's past medical and family history. Any updates have been documented here. Past Medical History Recent Fever: No Clinical Suspicion of Infectio: No New/Unexplained Change in Ment: No Past Medical History: Hypertension, Diabetes, CHF, PR, A-Fib, Hypothyroidism, CAD, GERD, Hyperlipedemia, Chronic Back Pain Other Medical History: LT ANKLE BPH Past Surgical History: CABG, Pacer/AICD, Knee Replacement Other Surgery: CATARACT SX RT KNEE REPLACEMENT LAMINECTOMY 09/23/19 Social History Smoking Cessation: Never Smoker Alcohol Use: None Any Illegal Drug Use: No Family History Family history of heart diseas: Yes Other family history htn,dm Other Last Tetanus: UNK Review of Systems Review of Systems Constitutional: Reports no symptoms EENTM: Reports no symptoms Cardiovascular: Reports no symptoms Respiratory: Reports no symptoms Gastrointestinal: Reports no symptoms Genitourinary: Reports as per HPI Musculoskeletal: Reports no symptoms Integumentary: Reports no symptoms Neurological: Reports no symptoms Psychological: Reports no symptoms Endocrine: Reports no symptoms Hematological/Lymphatic: Reports no symptoms Physical Exam Related Data Allergies: Coded Allergies: cephalexin (Verified Allergy, Unknown, 11/24/19) nitrofurantoin (Verified Allergy, Unknown, 06/07/19) Triage Vital Signs Vital Signs Date Time Temp Pulse Resp B/P (MAP) Pulse Ox O2 Delivery O2 Flow Rate FiO2 04/30/20 03:59 98.5 66 20 138/82 100 Vital signs reviewed: Yes Physical Exam CONSTITUTIONAL Constitutional: Reports well-developed, Reports well-nourished HENT HENT: Reports normocephalic, Reports atraumatic, Reports oropharynx clear/moist, Reports nose normal HENT L/R: Reports left ext ear normal, Reports right ext ear normal EYES Eyes: Reports PERRL, Reports conjunctivae normal NECK Neck: Reports ROM normal PULMONARY Pulmonary: Reports effort normal, Reports breath sounds normal CARDIOVASCULAR Cardiovascular: Reports regular rhythm, Reports heart sounds normal, Reports capillary refill normal, Reports normal rate GASTROINTESTINAL Abdominal: Reports soft, Reports bowel sounds normal, Reports tender (supra pubic with palpable bladder distention) GENITOURINARY Genitourinary: Reports penis normal SKIN Skin: Reports warm, Reports dry MUSCULOSKELETAL Musculoskeletal: Reports ROM normal NEUROLOGICAL Neurological: Reports alert, Reports oriented x 3, Reports no gross motor or sensory deficits PSYCHOLOGICAL Psychological: Reports mood/affect normal, Reports judgement normal Assessment & Plan Medical Decision Making MDM Patient presents with Foss catheter not draining urinary retention. Plan replace Foss catheter. Reassessment Reassessment time: 04:46 Reassessment foss exchanged 900 cc clear output Assessment & Plan Final Impression: (1) Obstructed Foss catheter Depart Disposition: HOME, SELF-CARE Last Vital Signs Date Time Temp Pulse Resp B/P (MAP) Pulse Ox O2 Delivery O2 Flow Rate FiO2 04/30/20 03:59 98.5 66 20 138/82 100 Home Meds Active Scripts Triamcinolone Acet (TRIAMCINOLONE ACETONIDE) 15 Gm Cr, 0 GM TOP BID for 30 Days, #1 TUBE Prov:GA SHEETS NP 12/02/19 Tamsulosin Hcl* (FLOMAX*) 0.4 Mg Cap, 0.4 MG PO HS for 30 Days, #30 CAP Prov:GA SHEETS NP 12/02/19 [Potassium Chloride 20MEQ/15ML] 20 MEQ/15 ML LIQD No Conflict Check, 20 MEQ NG DAILY for 30 Days, #60 Prov:GA SHEETS NP 12/02/19 Ondansetron Hcl/Pf (ONDANSETRON HCL 4 MG/2 ML VIAL) 4 Mg/2 Ml Vial, 4 MG IV Q6H PRN for NAUSEA AND VOMITING for 30 Days, #30 VIAL Prov:GA SHEETS NP 12/02/19 Nystatin (NYSTATIN) 100,000 Unit/1 Ml Oral.susp, 5 ML PO Q6HR for 30 Days, #30 Prov:GA SHEETS NP 12/02/19 [Morphine Sulfate 2MG/Ml] 2 MG/ML INJ No Conflict Check, 1 MG IV Q6H PRN for SEVERE PAIN (7-10) for 30 Days, #60 Prov:GA SHEETS KENDAL 12/02/19 [Metoprolol Tartrate Inj] 1 MG/ML SOLN No Conflict Check, 2.5 MG IV Q6H PRN for HR>110, sbp>160 for 30 Days, #30 Prov:GA SHEETS FRIEND OF THE COURT 12/02/19 Loratadine (LORATADINE) 10 Mg Tablet, 10 MG PO DAILY for 30 Days, #30 TAB Prov:GA SHEETS FRIEND OF THE COURT 12/02/19 Levalbuterol Hcl (XOPENEX) 0.63 Mg/3 Ml Vial.neb, 0.63 MG INH RQ6H PRN for SHORTNESS OF BREATH for 30 Days, #90 Prov:GA SHEETS KENDAL 12/02/19 [Insulin Lispro] 100 UNIT/1 ML VIAL No Conflict Check, 0 UNIT SQ Q6H for 30 Days, #30 Prov:GA SHEETS FRIEND OF THE COURT 12/02/19 Furosemide (FUROSEMIDE) 10 Mg/1 Ml Vial, 40 MG IV DAILY for 30 Days, #30 VIAL Prov:GA SHEETS KENDAL 12/02/19 [Fluticasone Propionate] 1 EA SPRAY No Conflict Check, 0 EA NS DAILY for 30 Days, #1 SPRAYS Prov:GA SHEETS KENDAL 12/02/19 Famotidine/Pf (FAMOTIDINE 20 MG/2 ML VIAL) 20 Mg/2 Ml Vial, 20 MG IV BID for 30 Days, #60 VIAL Prov:GA SHEETS KENDAL 12/02/19 Docusate Sodium (COLACE) 100 Mg/10 Ml Liqd, 100 MG NG BID for 30 Days, #60 Prov:GA SHEETS KENDAL 12/02/19 Dextrose (DEXTROSE 50%-WATER SYRINGE) 50 Ml Inj, 50 ML IV PRN PRN for BLOOD SUGAR for 30 Days, #10 Prov:GA SHEETS FRIEND OF THE COURT 12/02/19 Carvedilol (COREG) 3.125 Mg Tab, 6.25 MG PO BID for 30 Days, #60 TAB Prov:GA SHEETS KENDAL 12/02/19 [Calcium Carbonate] 500 MG TAB No Conflict Check, 500 MG PO DAILY for 30 Days, #30 Prov:GA SHEETS FRIEND OF THE COURT 12/02/19 Benzonatate (TESSALON PERLE) 100 Mg Capsule, 200 MG PO Q8HR PRN for COUGH for 30 Days, #60 CAP Prov:GA SHEETS FRIEND OF THE COURT 12/02/19 Atorvastatin Calcium* (LIPITOR*) 10 Mg Tablet, 10 MG PO DAILY@0600 for 30 Days, #30 TAB Prov:GA SHEETS FRIEND OF THE COURT 12/02/19 Apixaban (Eliquis) 5 Mg Tablet, 5 MG PO Q12HR for 30 Days, #30 TAB Prov:GA SHEETS FRIEND OF THE COURT 12/02/19 [Albuterol/Ipratropium Nebulize] 3 ML INHA No Conflict Check, 3 ML NEB RQ4H for 30 Days, #100 Prov:GA SHEETS FRIEND OF THE COURT 12/02/19 [Albuterol/Ipratropium Nebulize] 3 ML INHA No Conflict Check, 3 ML NEB RQ4H PRN for SHORTNESS OF BREATH for 30 Days, #100 Prov:GA SHEETS FRIEND OF THE COURT 12/02/19 Acetaminophen (ACETAMINOPHEN) 325 Mg Tablet, 650 MG PO Q6H PRN for Mild Pain (1- 3) or Fever>100.8 for 30 Days, #60 TAB Prov:GA SHEETS FRIEND OF THE COURT 12/02/19 Reported Medications Atorvastatin Calcium (LIPITOR) 20 Mg Tablet 11/24/19 Hydrocodone Bit/Acetaminophen (HYDROCODON-ACETAMINOPHN 10-325) 1 Each Tablet 11/24/19 Trazodone Hcl (TRAZODONE HCL) 50 Mg Tablet 11/24/19 Carvedilol (CARVEDILOL) 6.25 Mg Tablet 11/24/19 Amiodarone Hcl (AMIODARONE HCL) 200 Mg Tablet 11/24/19 Medications in the ED Lidocaine HCl 10 ml ONCE ONCE TOP ; Start 04/30/20 at 04:00; Stop 04/30/20 at 04:01; Status TODD GARCÍA MD Apr 30, 2020 04:12
--- NOTE | 2020-04-30 05:32 | NUR ---
SPOKE WITH REGINO WITH [facility]. ETA 45 MINUTES - 1 HR.
== END 2020-04-30 06:00 | disposition home or self-care (01) ==
LOC: ER 03:48
DX: Z46.6 Encounter for fitting and adjustment of urinary device (principal); I10 Essential (primary) hypertension; E11.9 Type 2 diabetes mellitus without complications; E78.5 Hyperlipidemia, unspecified; I25.10 Atherosclerotic heart disease of native coronary artery without angina pectoris; K21.9 Gastro-esophageal reflux disease without esophagitis; I25.2 Old myocardial infarction; Z95.1 Presence of aortocoronary bypass graft; Z95.810 Presence of automatic (implantable) cardiac defibrillator
CPT/HCPCS: 51700; 99283

== ENCOUNTER 2020-05-23 02:41 | Emergency (ER) | payer MEDICARE ==
[~2020-05-23] VITALS: Ht 175.3 cm; Wt 68.0 kg
--- NOTE | 2020-05-23 03:49 | Emergency Department Note ---
History of Present Illnes History of Present Illness Chief Complaint: Genitourinary History of Present Illness This is a 85 year old male arrives to the ED for a clogged Armstrong c atheter for several hours.. Historian: Oncology Admin/EMS Arrival Mode: [facility] Onset (how long ago): hour(s) Severity: mild Onset quality: gradual Duration (how long): hour(s) Timing of current episode: constant Progression: worsening Context: Denies recent illness Relieving factors: none Exacerbating factors: none Past Medical/Family History Physician Review I have reviewed the patient's past medical and family history. Any updates have been documented here. Past Medical History Recent Fever: No Clinical Suspicion of Infectio: No New/Unexplained Change in Ment: No Past Medical History: Hypertension, Diabetes, CHF, [place], A-Fib, Hypothyroidism, CAD, GERD, Hyperlipedemia, Chronic Back Pain Other Medical History: LT ANKLE BPH Past Surgical History: CABG, Pacer/AICD, Knee Replacement Other Surgery: CATARACT SX RT KNEE REPLACEMENT LAMINECTOMY 09/23/19 Other Last Tetanus: UNK Any Pre-Existing Lines (PICC,: Yes Review of Systems Review of Systems Constitutional: Reports no symptoms EENTM: Reports no symptoms Cardiovascular: Reports no symptoms Respiratory: Reports no symptoms Gastrointestinal: Reports no symptoms Genitourinary: Reports as per HPI Musculoskeletal: Reports no symptoms Integumentary: Reports no symptoms Neurological: Reports no symptoms Psychological: Reports no symptoms Endocrine: Reports no symptoms Hematological/Lymphatic: Reports no symptoms Physical Exam Related Data Allergies: Coded Allergies: cephalexin (Verified Allergy, Unknown, 11/24/19) nitrofurantoin (Verified Allergy, Unknown, 06/07/19) Triage Vital Signs Vital Signs Date Time Temp Pulse Resp B/P (MAP) Pulse Ox O2 Delivery O2 Flow Rate FiO2 05/23/20 03:08 98.1 61 16 127/74 99 Room Air Vital signs reviewed: Yes Physical Exam CONSTITUTIONAL Constitutional: Present well-developed, Present well-nourished HENT HENT: Present normocephalic, Present atraumatic, Present oropharynx clear/moist, Present nose normal HENT L/R: Present left ext ear normal, Present right ext ear normal EYES Eyes: Reports PERRL, Reports conjunctivae normal NECK Neck: Present ROM normal PULMONARY Pulmonary: Present effort normal, Present breath sounds normal CARDIOVASCULAR Cardiovascular: Present regular rhythm, Present heart sounds normal, Present capillary refill normal, Present normal rate GASTROINTESTINAL Abdominal: Present soft, Present nontender, Present bowel sounds normal GENITOURINARY Genitourinary: Present exam deferred SKIN Skin: Present warm, Present dry MUSCULOSKELETAL Musculoskeletal: Present ROM normal NEUROLOGICAL Neurological: Present alert PSYCHOLOGICAL Psychological: Present mood/affect normal Assessment & Plan Medical Decision Making MDM 85 male arrives to the ED for clogged Armstrong catheter, catheter placed by RN patient stable for discharge home. Assessment & Plan Final Impression: (1) Obstructed Armstrong catheter Depart Disposition: HOME, SELF-CARE Last Vital Signs Date Time Temp Pulse Resp B/P (MAP) Pulse Ox O2 Delivery O2 Flow Rate FiO2 05/23/20 03:08 98.1 61 16 127/74 99 Room Air Home Meds Active Scripts Triamcinolone Acet (TRIAMCINOLONE ACETONIDE) 15 Gm Cr, 0 GM TOP BID for 30 Days, #1 TUBE Prov:GA SHEETS NP 12/02/19 Tamsulosin Hcl* (FLOMAX*) 0.4 Mg Cap, 0.4 MG PO HS for 30 Days, #30 CAP Prov:GA SHEETS NP 12/02/19 [Potassium Chloride 20MEQ/15ML] 20 MEQ/15 ML LIQD No Conflict Check, 20 MEQ NG DAILY for 30 Days, #60 Prov:GA SHEETS NP 12/02/19 Ondansetron Hcl/Pf (ONDANSETRON HCL 4 MG/2 ML VIAL) 4 Mg/2 Ml Vial, 4 MG IV Q6H PRN for NAUSEA AND VOMITING for 30 Days, #30 VIAL Prov:GA SHEETS NP 12/02/19 Nystatin (NYSTATIN) 100,000 Unit/1 Ml Oral.susp, 5 ML PO Q6HR for 30 Days, #30 Prov:GA SHEETS NP 12/02/19 [Morphine Sulfate 2MG/Ml] 2 MG/ML INJ No Conflict Check, 1 MG IV Q6H PRN for SEVERE PAIN (7-10) for 30 Days, #60 Prov:GA SHEETS NP 12/02/19 [Metoprolol Tartrate Inj] 1 MG/ML SOLN No Conflict Check, 2.5 MG IV Q6H PRN for HR>110, sbp>160 for 30 Days, #30 Prov:GA SHEETS KENDAL 12/02/19 Loratadine (LORATADINE) 10 Mg Tablet, 10 MG PO DAILY for 30 Days, #30 TAB Prov:GA SHEETS KENDAL 12/02/19 Levalbuterol Hcl (XOPENEX) 0.63 Mg/3 Ml Vial.neb, 0.63 MG INH RQ6H PRN for SHORTNESS OF BREATH for 30 Days, #90 Prov:GA SHEETS KENDAL 12/02/19 [Insulin Lispro] 100 UNIT/1 ML VIAL No Conflict Check, 0 UNIT SQ Q6H for 30 Days, #30 Prov:GA SHEETS KENDAL 12/02/19 Furosemide (FUROSEMIDE) 10 Mg/1 Ml Vial, 40 MG IV DAILY for 30 Days, #30 VIAL Prov:GA SHEETS KENDAL 12/02/19 [Fluticasone Propionate] 1 EA SPRAY No Conflict Check, 0 EA NS DAILY for 30 Days, #1 SPRAYS Prov:GA SHEETS KENDAL 12/02/19 Famotidine/Pf (FAMOTIDINE 20 MG/2 ML VIAL) 20 Mg/2 Ml Vial, 20 MG IV BID for 30 Days, #60 VIAL Prov:GA SHEETS KENDAL 12/02/19 Docusate Sodium (COLACE) 100 Mg/10 Ml Liqd, 100 MG NG BID for 30 Days, #60 Prov:GA SHEETS KENDAL 12/02/19 Dextrose (DEXTROSE 50%-WATER SYRINGE) 50 Ml Inj, 50 ML IV PRN PRN for BLOOD SUGAR for 30 Days, #10 Prov:GA SHEETS KENDAL 12/02/19 Carvedilol (COREG) 3.125 Mg Tab, 6.25 MG PO BID for 30 Days, #60 TAB Prov:GA SHEETS KENDAL 12/02/19 [Calcium Carbonate] 500 MG TAB No Conflict Check, 500 MG PO DAILY for 30 Days, #30 Prov:GA SHEETS KENDAL 12/02/19 Benzonatate (TESSALON PERLE) 100 Mg Capsule, 200 MG PO Q8HR PRN for COUGH for 30 Days, #60 CAP Prov:GA SHEETS KENDAL 12/02/19 Atorvastatin Calcium* (LIPITOR*) 10 Mg Tablet, 10 MG PO DAILY@0600 for 30 Days, #30 TAB Prov:GA SHEEST KENDAL 12/02/19 Apixaban (Eliquis) 5 Mg Tablet, 5 MG PO Q12HR for 30 Days, #30 TAB Prov:GA SHEETS NEWS DIRECTOR 12/02/19 [Albuterol/Ipratropium Nebulize] 3 ML INHA No Conflict Check, 3 ML NEB RQ4H for 30 Days, #100 Prov:GA SHEETS NEWS DIRECTOR 12/02/19 [Albuterol/Ipratropium Nebulize] 3 ML INHA No Conflict Check, 3 ML NEB RQ4H PRN for SHORTNESS OF BREATH for 30 Days, #100 Prov:GA SHEETS NEWS DIRECTOR 12/02/19 Acetaminophen (ACETAMINOPHEN) 325 Mg Tablet, 650 MG PO Q6H PRN for Mild Pain (1- 3) or Fever>100.8 for 30 Days, #60 TAB Prov:GA SHEETS NEWS DIRECTOR 12/02/19 Reported Medications Atorvastatin Calcium (LIPITOR) 20 Mg Tablet 11/24/19 Hydrocodone Bit/Acetaminophen (HYDROCODON-ACETAMINOPHN 10-325) 1 Each Tablet 11/24/19 Trazodone Hcl (TRAZODONE HCL) 50 Mg Tablet 11/24/19 Carvedilol (CARVEDILOL) 6.25 Mg Tablet 11/24/19 Amiodarone Hcl (AMIODARONE HCL) 200 Mg Tablet 11/24/19 LOUISE FERRERA, May 23, 2020 03:49
--- NOTE | 2020-05-23 04:42 | NUR ---
[facility] ARRIVED FOR PT TRANSPORT TO HOME.
[2020-05-23 04:57] VITALS: BP 142/71
== END 2020-05-23 05:07 | disposition home or self-care (01) ==
LOC: ER 02:50
DX: T83.091A Other mechanical complication of indwelling urethral catheter, initial encounter (principal); Z46.6 Encounter for fitting and adjustment of urinary device; I10 Essential (primary) hypertension; E11.9 Type 2 diabetes mellitus without complications; I50.9 Heart failure, unspecified; E78.5 Hyperlipidemia, unspecified; I25.10 Atherosclerotic heart disease of native coronary artery without angina pectoris; K21.9 Gastro-esophageal reflux disease without esophagitis; I25.2 Old myocardial infarction; Z95.1 Presence of aortocoronary bypass graft; Z95.810 Presence of automatic (implantable) cardiac defibrillator; Z96.651 Presence of right artificial knee joint
CPT/HCPCS: 51700; 99282

== ENCOUNTER 2020-05-24 01:49 | Emergency (ER) | payer MEDICARE ==
[~2020-05-24] VITALS: Ht 175.3 cm; Wt 68.0 kg
--- NOTE | 2020-05-24 02:00 | Emergency Department Note ---
History of Present Illnes History of Present Illness History of Present Illness This is a 85 year old male returns to the ED for the obstruction of urethral foss catheter. Arrival Mode: [facility] EMS Treatment GERIATRIC CASE MANAGER: See EMS Report History limited by: condition of the patient Onset (how long ago): hour(s) Radiation: Reports other (suprapubic) Severity: moderate Onset quality: gradual Duration (how long): hour(s) Timing of current episode: constant Progression: worsening Chronicity: recurrent Relieving factors: other (patent foss) Treatments prior to arrival: none Previous service: tests performed, one or more referrals, re-evaluation Past Medical/Family History Physician Review I have reviewed the patient's past medical and family history. Any updates have been documented here. Past Medical History Recent Fever: No Clinical Suspicion of Infectio: No New/Unexplained Change in Ment: No Past Medical History: Hypertension, Diabetes, A-Fib Other Medical History: Urinary Retention LT ANKLE BPH Past Surgical History: Pacer/AICD, Back Surgery Other Surgery: CATARACT SX RT KNEE REPLACEMENT LAMINECTOMY 09/23/19 Social History Smoking Cessation: Never Smoker Alcohol Use: None Any Illegal Drug Use: No Other Last Tetanus: UNK Review of Systems Review of Systems Constitutional: Reports no symptoms EENTM: Reports no symptoms Cardiovascular: Reports no symptoms Respiratory: Reports no symptoms Gastrointestinal: Reports no symptoms Genitourinary: Reports dysuria, Reports frequency Musculoskeletal: Reports no symptoms Integumentary: Reports no symptoms Neurological: Reports no symptoms Psychological: Reports no symptoms Endocrine: Reports no symptoms Hematological/Lymphatic: Reports no symptoms Physical Exam Related Data Allergies: Coded Allergies: cephalexin (Verified Allergy, Unknown, 11/24/19) nitrofurantoin (Verified Allergy, Unknown, 06/07/19) Vital signs reviewed: Yes Physical Exam CONSTITUTIONAL Constitutional: Present well-developed, Present cachectic HENT HENT: Present normocephalic, Present atraumatic, Present oropharynx clear/moist, Present nose normal HENT L/R: Present left ext ear normal, Present right ext ear normal EYES Eyes: Reports PERRL, Reports conjunctivae normal NECK Neck: Present ROM normal PULMONARY Pulmonary: Present effort normal, Present breath sounds normal CARDIOVASCULAR Cardiovascular: Present regular rhythm, Present heart sounds normal, Present capillary refill normal, Present normal rate GASTROINTESTINAL Abdominal: Present soft, Present nontender, Present bowel sounds normal GENITOURINARY Genitourinary: Present exam deferred SKIN Skin: Present warm, Present dry MUSCULOSKELETAL Musculoskeletal: Present ROM normal NEUROLOGICAL Neurological: Present alert, Present oriented x 3, Present no gross motor or sensory deficits PSYCHOLOGICAL Psychological: Present mood/affect normal, Present judgement normal Assessment & Plan Medical Decision Making MDM 85 yom with recurrent foss obstruction. Foss replaced without incident. Assessment & Plan Final Impression: (1) Urinary retention due to benign prostatic hyperplasia (2) Obstructed Foss catheter Depart Disposition: HOME, SELF-group home Meds Active Scripts Triamcinolone Acet (TRIAMCINOLONE ACETONIDE) 15 Gm Cr, 0 GM TOP BID for 30 Days, #1 TUBE Prov:GA SHEETS NP 12/02/19 Tamsulosin Hcl* (FLOMAX*) 0.4 Mg Cap, 0.4 MG PO HS for 30 Days, #30 CAP Prov:GA SHEETS NP 12/02/19 [Potassium Chloride 20MEQ/15ML] 20 MEQ/15 ML LIQD No Conflict Check, 20 MEQ NG DAILY for 30 Days, #60 Prov:GA SHEETS NP 12/02/19 Ondansetron Hcl/Pf (ONDANSETRON HCL 4 MG/2 ML VIAL) 4 Mg/2 Ml Vial, 4 MG IV Q6H PRN for NAUSEA AND VOMITING for 30 Days, #30 VIAL Prov:GA SHEETS NP 12/02/19 Nystatin (NYSTATIN) 100,000 Unit/1 Ml Oral.susp, 5 ML PO Q6HR for 30 Days, #30 Prov:GA SHEETS NP 12/02/19 [Morphine Sulfate 2MG/Ml] 2 MG/ML INJ No Conflict Check, 1 MG IV Q6H PRN for SEVERE PAIN (7-10) for 30 Days, #60 Prov:GA SHEETS NP 12/02/19 [Metoprolol Tartrate Inj] 1 MG/ML SOLN No Conflict Check, 2.5 MG IV Q6H PRN for HR>110, sbp>160 for 30 Days, #30 Prov:GA SHEETS NP 12/02/19 Loratadine (LORATADINE) 10 Mg Tablet, 10 MG PO DAILY for 30 Days, #30 TAB Prov:GA SHEETS NP 12/02/19 Levalbuterol Hcl (XOPENEX) 0.63 Mg/3 Ml Vial.neb, 0.63 MG INH RQ6H PRN for SHORTNESS OF BREATH for 30 Days, #90 Prov:GA SHEETS KENDAL 12/02/19 [Insulin Lispro] 100 UNIT/1 ML VIAL No Conflict Check, 0 UNIT SQ Q6H for 30 Days, #30 Prov:GA SHEETS KENDAL 12/02/19 Furosemide (FUROSEMIDE) 10 Mg/1 Ml Vial, 40 MG IV DAILY for 30 Days, #30 VIAL Prov:GA SHEETS KENDAL 12/02/19 [Fluticasone Propionate] 1 EA SPRAY No Conflict Check, 0 EA NS DAILY for 30 Days, #1 SPRAYS Prov:GA SHEETS KENDAL 12/02/19 Famotidine/Pf (FAMOTIDINE 20 MG/2 ML VIAL) 20 Mg/2 Ml Vial, 20 MG IV BID for 30 Days, #60 VIAL Prov:GA SHEETS KENDAL 12/02/19 Docusate Sodium (COLACE) 100 Mg/10 Ml Liqd, 100 MG NG BID for 30 Days, #60 Prov:GA SHEETS KENDAL 12/02/19 Dextrose (DEXTROSE 50%-WATER SYRINGE) 50 Ml Inj, 50 ML IV PRN PRN for BLOOD SUGAR for 30 Days, #10 Prov:GA SHEETS KENDAL 12/02/19 Carvedilol (COREG) 3.125 Mg Tab, 6.25 MG PO BID for 30 Days, #60 TAB Prov:GA SHEETS KENDAL 12/02/19 [Calcium Carbonate] 500 MG TAB No Conflict Check, 500 MG PO DAILY for 30 Days, #30 Prov:GA SHEETS KENDAL 12/02/19 Benzonatate (TESSALON PERLE) 100 Mg Capsule, 200 MG PO Q8HR PRN for COUGH for 30 Days, #60 CAP Prov:GA SHEETS KENDAL 12/02/19 Atorvastatin Calcium* (LIPITOR*) 10 Mg Tablet, 10 MG PO DAILY@0600 for 30 Days, #30 TAB Prov:KORTNEYGA Rafaela EDMONDS 12/02/19 Apixaban (Eliquis) 5 Mg Tablet, 5 MG PO Q12HR for 30 Days, #30 TAB Prov:KORTNEYGA Rafaela EDMONDS 12/02/19 [Albuterol/Ipratropium Nebulize] 3 ML INHA No Conflict Check, 3 ML NEB RQ4H for 30 Days, #100 Prov:GA SHEETS STRATEGIC SOURCING SPECIALIST 12/02/19 [Albuterol/Ipratropium Nebulize] 3 ML INHA No Conflict Check, 3 ML NEB RQ4H PRN for SHORTNESS OF BREATH for 30 Days, #100 Prov:GA SHEETS Rafaela STRATE[employer] S[employer]CING SPECIALIST 12/02/19 Acetaminophen (ACETAMINOPHEN) 325 Mg Tablet, 650 MG PO Q6H PRN for Mild Pain (1- 3) or Fever>100.8 for 30 Days, #60 TAB Prov:GA SHEETS Rafaela STRATE[employer] S[employer]CING SPECIALIST 12/02/19 Reported Medications Atorvastatin Calcium (LIPITOR) 20 Mg Tablet 11/24/19 Hydrocodone Bit/Acetaminophen (HYDROCODON-ACETAMINOPHN 10-325) 1 Each Tablet 11/24/19 Trazodone Hcl (TRAZODONE HCL) 50 Mg Tablet 11/24/19 Carvedilol (CARVEDILOL) 6.25 Mg Tablet 11/24/19 Amiodarone Hcl (AMIODARONE HCL) 200 Mg Tablet 11/24/19 MOODY ACOSTA DO May 24, 2020 02:00
[2020-05-24] MEDS ORDERED: LIDOCAINE JELLY 2% 10ML URO-JET ONE (02:22)
--- NOTE | 2020-05-24 03:14 | NUR ---
[facility] called for transport home
== END 2020-05-24 04:15 | disposition home or self-care (01) ==
LOC: ER 01:54
DX: Z46.6 Encounter for fitting and adjustment of urinary device (principal); N40.1 Benign prostatic hyperplasia with lower urinary tract symptoms; R33.8 Other retention of urine
CPT/HCPCS: 51703; 99284